=== PATIENT | male | born 1940 | race Caucasian/White ===

== ENCOUNTER 2016-08-13 21:39 | Inpatient (IN) ==
[2016-08-13] MEDS ORDERED: Ipratropium/Albuterol Neb 3 ML IH ONE (21:57)
[2016-08-13 22:09] LABS: ABG Base Excess -3.8 mEq/L (-2.0 to 3.0); ABG HCO3 22.2 mEQ/L (21-27); ABG Oxygen Saturation 89 % (95-98); ABG PCO2 43 mmHg (35-45); ABG PH 7.32 pH Units (7.32-7.45); ABG PO2 62 mmHg (85-104); ABG TCO2 23.5 mEq/L (20-26); Blood Gas FiO2 40 %
[2016-08-13] MEDS: Nitroglycerin 25 MG/250 ML INFUS..BTL IVC SCH (22:09)
--- NOTE | 2016-08-13 22:10 | Emergency Department Note ---
Disposition Clinical Impression: Acute respiratory failure Qualifiers: Respiratory failure complication: hypoxia Qualified Code(s): J96.01 - Acute respiratory failure with hypoxia Pneumonia Qualifiers: Pneumonia type: due to unspecified organism Laterality: bilateral Lung location : unspecified part of lung Qualified Code(s): J18.9 - Pneumonia, unspecified organism Congestive heart failure (CHF) Qualifiers: Congestive heart failure type: combined Congestive heart failure chronicity: acute on chronic Qualified Code(s): I50.43 - Acute on chronic combined systolic (congestive) and diastolic (congestive) heart failure Disposition: Admitted As Inpatient Condition: Fair [facility]: [facility]Primary Care Provider[facility] - Forms: ED Satisfaction Letter SOB HPI - General Chief Complaint: ED Shortness of Breath/Dyspnea Stated Complaint: YANE Time Seen by Provider: 08/13/16 21:44 Source: EMS Mode of arrival: EMS Limitations: altered mental status Nursing Notes Reviewed: Yes Vital Signs Reviewed: Yes - History of Present Illness She arrives in the [facility] for respiratory distress. He arrives with a nonrebreather patient will arouse to verbal command he appears in acute respiratory distress. He is unable to give us much of a history on exam the note states he does have a history of congestive heart failure and chronic kidney disease. Pt Subjective Complaint: shortness of breath Severity: severe Consistency/Duration: constant Worsens with: nothing Known history of: congestive heart failure Associated symptoms: Reports: other (Able to obtain) Treatment prior to arrival: oxygen, bronchodilator - Related Data Allergies Allergy/AdvReac Type Severity Reaction Status Date / Time No Known Allergies Allergy Verified 08/13/16 23:14 Limitations: ROS unobtainable due to patients medical condition Past Medical History - Past Medical History Source: old records reviewed, nursing notes reviewed Medical history: Reports: coronary artery disease, hyperlipidemia, hypertension Psychiatric history: Reports: no psych history - Social History Smoking Status: Unknown if ever smoked Alcohol use: Reports: none Drug use: Reports: none Physical Exam - General Limitations: altered mental status General appearance: in distress - Head Head exam: atraumatic, normocephalic, normal inspection - Eye Eye exam: Present: PERRL - ENT ENT exam: mucous membranes dry - Neck Neck exam: Present: normal inspection, full ROM, trachea midline - Respiratory Respiratory exam: Present: respiratory distress, wheezes (scattered with coarse rhonchi), other - Cardiovascular Cardiovascular exam: Present: tachycardia, normal heart sounds - Abdominal Exam Abdominal exam: Present: soft, Non-Tender. Absent: tenderness, distention, guarding, rebound, rigidity - Neurological Exam Neurological exam: Present: alert (obeys commands) - Skin Skin exam: Present: other Course - Reevaluation(s) Reevaluation #1: Patient much more alert and responsive he states that he is planning on guarding dialysis he has a left fistula. He states his breathing is better he is communicating and alert. Time: 23:03 Reevaluation #2: I spoke with the patient's she states he does want intubated if it was for short-term if his respiratory condition worsens. [facility] was at the [facility] since Thursday for [facility]. He was discharged from [facility] on Thursday for hypertensive urgency was on a nitroglycerin drip and also was diuresed for congestive heart failure. Time: 23:48 Vital Signs Temperature 0 F L 08/13/16 21:44 Pulse Rate 77 08/13/16 21:44 Respiratory Rate 32 08/13/16 21:44 Blood Pressure 191/91 08/13/16 21:44 O2 Sat by Pulse Oximetry 91 L 08/13/16 21:44 Temperature 0 F L 08/13/16 21:44 Pulse Rate 80 08/13/16 23:35 Respiratory Rate 20 08/13/16 23:35 Blood Pressure 134/93 08/13/16 23:35 O2 Sat by Pulse Oximetry 91 L 08/13/16 23:35 Oxygen Delivery Oxygen Delivery Bipap Shortness of Breath/Dyspnea - Differential Diagnosis Likely: acute exacerbation of chronic obstructive airways disease, congestive heart failure, pneumonia, asthma with exacerbation, arrhythmia - Medical Records Medical records reviewed: Yes I reviewed the patient's medical records. - Lab Data Lab results reviewed: Yes I reviewed the patient's lab results. Result diagrams: 08/13/16 22:17 08/13/16 22:17 Lab Results 08/13/16 08/13/16 08/13/16 Range/Units 21:52 22:01 22:17 WBC 7.3 (4.3-11.1) K/mcL RBC 3.56 L (4.19-5.50) M/mcL Hgb 11.0 L (12.9-16.9) g/dL Hct 33.7 L (37.5-50.1) % MCV 94.7 (83.0-100.0) fL MCH 30.9 (28.0-33.3) pg MCHC 32.6 (31.6-35.5) g/dL RDW 14.8 H (11.5-14.5) % Plt Count 82 L (140-400) K/mcL MPV 10.9 (9.4-12.4) fL Immature Gran % 0.4 (0-4) % Seg Neutrophils % 77.7 % Lymphocytes % 11.3 % Monocytes % 8.6 % Eosinophils % 1.9 % Basophils % 0.1 % Neutrophils # 5.7 (1.6-8.9) K/mcL Lymphocytes # 0.8 (0.6-4.6) K/mcL Monocytes # 0.6 (0.0-1.3) K/mcL Eosinophils # 0.1 (0.0-0.6) K/mcL Basophils # 0.0 (0.0-0.2) K/mcL Immature Plt Fraction 2.8 (1.1-6.1) % PT (9.4-12.1) Seconds INR APTT (26.0-36.0) Seconds ABG pH 7.32 (7.32-7.45) pH Units ABG pCO2 43 (35-45) mmHg ABG pO2 62 L (85-104) mmHg ABG HCO3 22.2 (21-27) mEQ/L ABG Total CO2 23.5 (20-26) mEq/L ABG O2 Saturation 89 L (95-98) % ABG Base Excess -3.8 L (-2.0 to 3.0) mEq/L Blood Gas Modality BIPAP Inspired O2 40 % Sodium (136-145) mEq/L Potassium (3.5-4.5) mEq/L Chloride (98-109) mEq/L Carbon Dioxide (19-29) mEq/L BUN (8-26) mg/dL Creatinine (0.72-1.25) mg/dL Est GFR ( Amer) (> 60) Est GFR (Non-Af Amer) (> 60) BUN/Creatinine Ratio (6-26) Glucose (70-99) mg/dL POC Glucose 178 H (58-89) Calculated Osmolality (280-300) Lactic Acid (0.5-2.2) mmol/L Calcium (8.6-10.8) mg/dL Troponin I (0-0.03) ng/mL B-Natriuretic Peptide (0-100) pg/mL 08/13/16 08/13/16 08/13/16 Range/Units 22:17 22:17 22:17 WBC (4.3-11.1) K/mcL RBC (4.19-5.50) M/mcL Hgb (12.9-16.9) g/dL Hct (37.5-50.1) % MCV (83.0-100.0) fL MCH (28.0-33.3) pg MCHC (31.6-35.5) g/dL RDW (11.5-14.5) % Plt Count (140-400) K/mcL MPV (9.4-12.4) fL Immature Gran % (0-4) % Seg Neutrophils % % Lymphocytes % % Monocytes % % Eosinophils % % Basophils % % Neutrophils # (1.6-8.9) K/mcL Lymphocytes # (0.6-4.6) K/mcL Monocytes # (0.0-1.3) K/mcL Eosinophils # (0.0-0.6) K/mcL Basophils # (0.0-0.2) K/mcL Immature Plt Fraction (1.1-6.1) % PT (9.4-12.1) Seconds INR APTT (26.0-36.0) Seconds ABG pH (7.32-7.45) pH Units ABG pCO2 (35-45) mmHg ABG pO2 (85-104) mmHg ABG HCO3 (21-27) mEQ/L ABG Total CO2 (20-26) mEq/L ABG O2 Saturation (95-98) % ABG Base Excess (-2.0 to 3.0) mEq/L Blood Gas Modality Inspired O2 % Sodium 140 (136-145) mEq/L Potassium 5.6 H (3.5-4.5) mEq/L Chloride 110 H (98-109) mEq/L Carbon Dioxide 19 (19-29) mEq/L BUN 64 H (8-26) mg/dL Creatinine 3.28 H (0.72-1.25) mg/dL Est GFR ( Amer) 22 L (> 60) Est GFR (Non-Af Amer) 18 L (> 60) BUN/Creatinine Ratio 20 (6-26) Glucose 179 H (70-99) mg/dL POC Glucose (58-89) Calculated Osmolality 313 H (280-300) Lactic Acid 0.5 (0.5-2.2) mmol/L Calcium 9.4 (8.6-10.8) mg/dL Troponin I 0.10 H* (0-0.03) ng/mL B-Natriuretic Peptide (0-100) pg/mL 08/13/16 08/13/16 Range/Units 22:17 22:17 WBC (4.3-11.1) K/mcL RBC (4.19-5.50) M/mcL Hgb (12.9-16.9) g/dL Hct (37.5-50.1) % MCV (83.0-100.0) fL MCH (28.0-33.3) pg MCHC (31.6-35.5) g/dL RDW (11.5-14.5) % Plt Count (140-400) K/mcL MPV (9.4-12.4) fL Immature Gran % (0-4) % Seg Neutrophils % % Lymphocytes % % Monocytes % % Eosinophils % % Basophils % % Neutrophils # (1.6-8.9) K/mcL Lymphocytes # (0.6-4.6) K/mcL Monocytes # (0.0-1.3) K/mcL Eosinophils # (0.0-0.6) K/mcL Basophils # (0.0-0.2) K/mcL Immature Plt Fraction (1.1-6.1) % PT 12.8 H (9.4-12.1) Seconds INR 1.2 APTT 40.3 H (26.0-36.0) Seconds ABG pH (7.32-7.45) pH Units ABG pCO2 (35-45) mmHg ABG pO2 (85-104) mmHg ABG HCO3 (21-27) mEQ/L ABG Total CO2 (20-26) mEq/L ABG O2 Saturation (95-98) % ABG Base Excess (-2.0 to 3.0) mEq/L Blood Gas Modality Inspired O2 % Sodium (136-145) mEq/L Potassium (3.5-4.5) mEq/L Chloride (98-109) mEq/L Carbon Dioxide (19-29) mEq/L BUN (8-26) mg/dL Creatinine (0.72-1.25) mg/dL Est GFR ( Amer) (> 60) Est GFR (Non-Af Amer) (> 60) BUN/Creatinine Ratio (6-26) Glucose (70-99) mg/dL POC Glucose (58-89) Calculated Osmolality (280-300) Lactic Acid (0.5-2.2) mmol/L Calcium (8.6-10.8) mg/dL Troponin I (0-0.03) ng/mL B-Natriuretic Peptide 2032 H (0-100) pg/mL - Radiology Data Radiology results reviewed: Yes I reviewed the patient's radiology results. Critical Care Time Critical Care Time: Yes Total Critical Care Time: 40 Attestation: Critical care performed: Time is exclusive of separately billable procedures. Time includes: direct patient care, patient reassessment, coordination of patient care, interpretation of data (laboratory data, radiology data, and respiratory data), review of patient's medical records, medical consultation and documentation of patient care. Procedures included in critical care time: Procedures excluded from critical care time:
[2016-08-13 22:32] LABS: Basophils % 0.1 %; Eosinophils # 0.1 K/mcL (0.0-0.6); Eosinophils % 1.9 %; Hematocrit 33.7 % (37.5-50.1); INR 1.2; Immature Granulocytes % 0.4 % (0-4); Immature Platelets 2.8 % (1.1-6.1); Lymphocytes # 0.8 K/mcL (0.6-4.6); Lymphocytes % 11.3 %; Mean Corpuscular HGB Conc 32.6 g/dL (31.6-35.5); Mean Corpuscular Hemoglobin 30.9 pg (28.0-33.3); Mean Corpuscular Volume 94.7 fL (83.0-100.0); Mean Platelet Volume 10.9 fL (9.4-12.4); Monocytes # 0.6 K/mcL (0.0-1.3); Monocytes % 8.6 %; Neutrophils # 5.7 K/mcL (1.6-8.9); Platelet Count 82 K/mcL (140-400); Prothrombin Time 12.8 Seconds (9.4-12.1); Red Blood Count 3.56 M/mcL (4.19-5.50); Red Cell Distribution Width 14.8 % (11.5-14.5); Segmented Neutrophils % 77.7 %
[2016-08-13 22:34] LABS: Activated Partial Thrombo Time 40.3 Seconds (26.0-36.0)
[2016-08-13 22:37] LABS: Calcium 9.4 mg/dL (8.6-10.8); Potassium 5.6 mEq/L (3.5-4.5)
[2016-08-13] MEDS ORDERED: Levofloxacin 750 MG/150 ML 750 MG/150 ML BAG IVPB ONE (22:49)
[2016-08-13] MEDS ORDERED: Furosemide 40 MG/4 ML VIAL IVP ONE (23:00)
[2016-08-13] MEDS ORDERED: Aspirin 81 MG TAB.CHEW PO STA (23:04)
[2016-08-14] MEDS ORDERED: Ondansetron 4 MG/2 ML VIAL IVP PRN (01:53)
[2016-08-14] MEDS ORDERED: Lacri-Lube 3.5 GM TUBE BOTH EYES PRN (02:37)
[2016-08-14] MEDS ORDERED: *HR* Midazolam HCl 5 MG/5 ML VIAL IVP ONE ×3 (03:21→07:48)
[2016-08-14] MEDS ORDERED: *HR* Midazolam HCl 2 MG/2 ML VIAL IVP ONE (03:22)
[2016-08-14] MEDS: Lacri-Lube 3.5 GM TUBE BOTH EYES SCH ×5 (03:52→20:10)
[2016-08-14] MEDS: Furosemide 20 MG/2 ML VIAL IVP ONE ×2 (03:53→04:07)
[2016-08-14] MEDS ORDERED: Furosemide 240 MG in D5% in Water 96 ML IVC SCH (04:00)
[2016-08-14 04:05] LABS: ABG Base Excess -3.7 mEq/L (-2.0 to 3.0); ABG HCO3 22.2 mEQ/L (21-27); ABG Oxygen Saturation 98 % (95-98); ABG PCO2 43 mmHg (35-45); ABG PH 7.32 pH Units (7.32-7.45); ABG PO2 104 mmHg (85-104); ABG TCO2 23.5 mEq/L (20-26)
[2016-08-14 04:06] LABS: Blood Gas FiO2 60 %
[2016-08-14 04:08] LABS: Hematocrit 31.3 % (37.5-50.1); Hemoglobin 9.8 g/dL (12.9-16.9); Mean Corpuscular HGB Conc 31.3 g/dL (31.6-35.5); Mean Corpuscular Hemoglobin 30.3 pg (28.0-33.3); Mean Corpuscular Volume 96.9 fL (83.0-100.0); Mean Platelet Volume 11.3 fL (9.4-12.4); Platelet Count 87 K/mcL (140-400); Red Blood Count 3.23 M/mcL (4.19-5.50); Red Cell Distribution Width 14.6 % (11.5-14.5)
[2016-08-14 04:23] LABS: Albumin 2.4 g/dL (3.5-5.0); Albumin/Globulin Ratio 0.7 (1.1-2.2); Bilirubin,Total 0.6 mg/dL (0.2-1.2); Calcium 8.6 mg/dL (8.6-10.8); Globulin 3.5 g/dL (2.4-3.5); Magnesium 1.7 mg/dL (1.6-2.6); Potassium 5.1 mEq/L (3.5-4.5); Total Protein 5.9 g/dL (6.0-8.3)
[2016-08-14] MEDS: Nitroglycerin 25 MG/250 ML INFUS..BTL IVC SCH ×2 (05:49→13:00)
[2016-08-14] MEDS ORDERED: Naloxone 0.4 MG/ML INJ IVP PRN (06:30)
--- NOTE | 2016-08-14 06:37 | Internal Med History&Physical ---
Date of Encounter: 08/14/16 Time of Encounter: 02:00 Assessment and Plan (1) Acute respiratory failure Current visit: Yes Status: Acute Likely due to pulmonary edema / CHF exacerbation. Pt was not able to tolerate BiPAP. Pt is intubated and is on mechanical ventilation and sedation. Will consult pulmonary in the morning, to take over the care / vent management. Qualifiers: Respiratory failure complication: hypoxia Qualified Code(s): J96.01 - Acute respiratory failure with hypoxia (2) Acute exacerbation of CHF (congestive heart failure) Current visit: Yes Status: Acute Pt has significant volume overload, possibly contributed by CKD as well. Pt was started on nitroglycerine infusion in the ER, for Hypertensive urgency and pulmonary edema. Now he is started on lasix infusion. Will diandra echocardiogram to evaluate LVEF. Qualifiers: Congestive heart failure type: unspecified congestive heart failure type Qualified Code(s): I50.9 - Heart failure, unspecified (3) Chronic kidney disease Current visit: Yes Status: Chronic We do not have his baseline renal function. Possible CKD. will need records from [facility]. Nephrology consultation - discussed with Dr Jarvis. Qualifiers: Chronic kidney disease stage: stage 4 (severe) Qualified Code(s): N18.4 - Chronic kidney disease, stage 4 (severe) (4) Hypertension Current visit: Yes Status: Chronic Continue home meds, as tolerated. Qualifiers: Hypertension type: essential hypertension Qualified Code(s): I10 - Essential (primary) hypertension (5) Pneumonia Current visit: Yes Status: Suspected There was suspicion for pneumonia, based on initial CXR. Was given levofloxacin in the ER. Subsequent CXR does not report pneumonia. Will consult pulmonary physician for further advice. Qualifiers: Pneumonia type: due to unspecified organism Laterality: bilateral Lung location: unspecified part of lung Qualified Code(s): J18.9 - Pneumonia, unspecified organism (6) Hypertensive urgency Current visit: Yes Status: Acute Pt is treated with nitroglycerine infusion. BP improving (7) DVT prophylaxis Current visit: Yes Status: Acute With heparin subcutaneously Internal Medicine - H&P: HPI Chief complaint: Shortness of breath Admitted From: Hospital to Hospital Transfer Plans for Post Hospital Care: Transfer Inp Rehab Fac History of present illness: Mr. Castro is a 76 year old male with PMH significant for coronary artery disease, hyperlipidemia, hypertension, (?CKD). He apparently was admitted recently to [facility] for hypertensive urgency / Stroke and was in rehab at [facility]. Yesterday he apparently had shortness of breath and was unresponsive. He was reportedly in respiratory distress, on arrival to the ER. He was also hypertensive. He was treated with IV lasix, levofloxacin, nitroglycerine and BiPAP. He was admitted to the Hospitalist service. After transferring to the ICU , pt was nauseated and had significant cough, with pink frothy sputum. He did not tolerate the BiPAP well. On my evaluation, pt was on oxygen, through nasal cannula; was confused and was in respiratory distress. Pt dinied chest pain, abdominal pain. He had nausea. No fever / chills reported. TIme spent in stabilizing and organizing the care is about 50 minutes Past Med Surg Social Fam HX - Past Medical History Medical history: coronary artery disease, hyperlipidemia, hypertension Psychiatric history: no psych history - Social History Smoking Status: Unknown if ever smoked Alcohol use: none Drug use: none Internal Medicine - H&P: Meds Atorvastatin [Lipitor] 40 mg PO HS 08/14/16 [History] Calcitriol [Rocaltrol] 0.5 mcg PO DAILY 08/14/16 [History] Carvedilol [Coreg] 50 mg PO BID 08/14/16 [History] Cholecalciferol (D-3) [Vitamin D] 1,000 unit PO DAILY 08/14/16 [History] CloNIDine HCl [Clonidine HCl] 0.2 mg PO TID 08/14/16 [History] Cyanocobalamin (Vitamin B-12) [Vitamin B-12] 200 mcg PO DAILY 08/14/16 [History] Dextran 70/Hypromellose [Natural Balance Tears Eye Drop] 1 drop OP QID PRN 08/14 [History] Duloxetine HCl [Cymbalta] 60 mg PO DAILY 08/14/16 [History] Ferrous Gluconate 324 mg PO DAILY 08/14/16 [History] Finasteride [Proscar] 5 mg PO DAILY 08/14/16 [History] GuaiFENesin/Dextromethorphan [Kro Tussin Dm Max Liquid] 5 ml PO Q4H PRN [History] Hydralazine HCl 100 mg PO TID 08/14/16 [History] Hydrophilic Cream [Basle] 1 appl TP DAILY PRN 08/14/16 [History] Insulin ASPART [NovoLOG] 7 unit SQ TID 08/14/16 [History] Insulin Glargine [Lantus] 10 unit SQ BID 08/14/16 [History] Isosorbide MONOnitrate [Isosorbide Mononitrate ER] 120 mg PO BID 08/14/16 [ History] Lactobacillus Acidophilus [Acidophilus Lactobacillus] 2 each PO DAILY 08/14/16 [ History] Lidocaine 4% CRM (LMX) [Lmx 4] 1 appl TP Q8H PRN 08/14/16 [History] Lisinopril 30 mg PO BID 08/14/16 [History] Melatonin 6 mg PO HS PRN 08/14/16 [History] Minoxidil 5 mg PO DAILY 08/14/16 [History] NIFEdipine [Afeditab Cr] 60 mg PO BID 08/14/16 [History] Nitroglycerin [Nitrostat] 0.4 mg SL Q5M PRN 08/14/16 [History] Pantoprazole Sodium [Protonix] 40 mg PO DAILY 08/14/16 [History] Phenytoin ER [Dilantin ER] 400 mg PO BID 08/14/16 [History] Tamsulosin [Flomax] 0.8 mg PO DAILY 08/14/16 [History] Tramadol HCl [Ultram] 25 mg PO QID PRN 08/14/16 [History] Zolpidem [Ambien] 10 mg PO HS PRN 08/14/16 [History] Allergies No Known Allergies Allergy (Verified 08/13/16 23:14) All Systems PM: A 10-system review of systems was performed and is negative for pertinent findings except as documented above in the HPI. - Constitutional Vitals: Temp Pulse Resp BP Pulse Ox 98.4 F 61 16 140/67 98 08/14/16 05:08 08/14/16 06:00 08/14/16 06:07 08/14/16 06:07 08/14/16 06:07 Exam: General: Pt in significant respiratory distress at my initial evaluation HEENT: No conjunctival palor or scleral incterus Neck: No obvious neck swellings Lungs: Bilateral crackles upto the midzones bilaterally Cardiac: Regular rate and rhythm. No significant murmurs Abdomen: Non tender. Bowel sounds present Neurological: Alert and oriented x 3. Psychiatric: Not aggressive or agitated. No delusions or hallucinations Muskuloskeletal: B/L leg edema noted. Skin: No generalized rash Internal Med - H&P Results - Labs CBC & Chem 7: 08/14/16 03:47 08/14/16 03:47 Labs: Short CBC 08/14/16 Range/Units 03:47 WBC 8.4 (4.3-11.1) K/mcL Hgb 9.8 L (12.9-16.9) g/dL Hct 31.3 L (37.5-50.1) % Plt Count 87 L (140-400) K/mcL BMP 08/14/16 03:47 Sodium 142 Potassium 5.1 H Chloride 112 H Carbon Dioxide 19 BUN 61 H Creatinine 3.19 H Glucose 160 H Calcium 8.6 Liver Function 08/14/16 Range/Units 03:47 Total Bilirubin 0.6 (0.2-1.2) mg/dL AST 21 (5-34) Units/L ALT 17 (0-55) Units/L Alkaline Phosphatase 121 (38-126) Units/L Albumin 2.4 L (3.5-5.0) g/dL - ABG Interpretation ABG results: 08/14/16 03:54 ABG pH 7.32 ABG pCO2 43 ABG pO2 104 ABG HCO3 22.2 ABG Total CO2 23.5 ABG O2 Saturation 98 ABG Base Excess -3.7 L - Impressions ITS Impressions Chest X-Ray 08/14/16 02:32 IMPRESSION: 1. New endotracheal tube in satisfactory position. 2. New gastric tube loops in the gastric fundus with the tip directed back towards the gastroesophageal junction and the sideport also in the fundus. Recommend repositioning. 3. Unchanged right upper lobe, bilateral perihilar, and left basilar airspace opacities, potentially atelectasis or edema. Underlying pulmonary vascular congestion. 4. Left pleural effusion. D/ / Noel Porter MD / Noel Porter MD Interpreting Provider: Noel Porter MD Impressions Chest X-Ray 08/13/16 21:49 IMPRESSION: 1. Patchy bilateral opacities concerning for pneumonia. D/ / Keyur Soler MD / Keyur Soler MD Interpreting Provider: Keyur Soler MD Chest X-Ray 08/14/16 02:32
--- NOTE | 2016-08-14 07:18 | Pulmonology Consult Note ---
<Gaby Ward - Last Filed: 08/14/16 12:07> Date of Encounter: 08/14/16 Time of Encounter: 06:40 Assessment and Plan (1) Acute respiratory failure Current Visit: Yes Status: Acute [facility] on nonrebreather in respiratory distress. Was placed on BiPAP and subsequently intubated once in ICU Currently on FiO2 60% with O2 sat 99% CXR demonstrated right upper lobe, bilateral perihilar and left basilar airspace opacities, potentially atelectasis or edema, underlying pulmonary vascular congestion, left pleural effusion Lasix drip discontinued and placed on twice a day regimen per nephrology Plan for central line placement this morning Fluid balance of -1374 since admission Barrett in place to monitor I/Os Qualifiers: Respiratory failure complication: hypoxia Qualified Code(s): J96.01 - Acute respiratory failure with hypoxia (2) Chronic kidney disease Current Visit: Yes Status: Chronic Pt with history of CKD, [facility], however there has reportedly been discussion about placement of fistula. Nephrology has been consulted Creatinine today: 3.19 (3.28 yesterday) IV lasix drip stopped and started on twice a day regimen Will continue to monitor kidney function Qualifiers: Chronic kidney disease stage: unspecified stage Qualified Code(s): N18.9 - Chronic kidney disease, unspecified (3) Congestive heart failure (CHF) Current Visit: Yes Status: Acute Pt with reported history of CHF, uncertain if systolic or diastolic Echocardiogram pending Continue lasix bid Qualifiers: Congestive heart failure type: unspecified congestive heart failure type Congestive heart failure chronicity: unspecified congestive heart failure chronicity Qualified Code(s): I50.9 - Heart failure, unspecified (4) Hypertension Current Visit: Yes Status: Chronic Nitro drip ordered, however pts blood pressure has been controlled off of the drip Will continue to monitor and adjust medications as needed Qualifiers: Hypertension type: essential hypertension Qualified Code(s): I10 - Essential (primary) hypertension (5) DVT prophylaxis Current Visit: Yes Status: Acute Heparin 5,000 SQ Q8H History of Present Illness Consult date: 08/14/16 Requesting physician: Krzysztof Rider Reason for consult: other (Ventilator management) Chief complaint: Acute Respiratory Failure History of present illness: Pt is intubated and sedated on examination. History significant for CAD, BPH, CKD, diabetes mellitus and reported CHF. [facility] s/p CVA and was brought to [facility] in respiratory distress. He reportedly came with nonrebreather, was transferred to the ICU where he was subsequently intubated. Placement of tube was confirmed with CXR. CXR also demonstrated right upper lobe, bilateral perihilar, and left basilar airspace opacities, potentially atelectasis or edema with underlying pulmonary vascular congestion and left pleural effusion. Lasix drip was started for diuresis. Nephrology consulted. Past Med Surg Social Fam HX - Past Medical History Medical history: coronary artery disease, hyperlipidemia, hypertension Psychiatric history: no psych history - Social History Smoking Status: Unknown if ever smoked Alcohol use: none Drug use: none Medications and Allergies Atorvastatin [Lipitor] 40 mg PO HS 08/14/16 [History] Calcitriol [Rocaltrol] 0.5 mcg PO DAILY 08/14/16 [History] Carvedilol [Coreg] 50 mg PO BID 08/14/16 [History] Cholecalciferol (D-3) [Vitamin D] 1,000 unit PO DAILY 08/14/16 [History] CloNIDine HCl [Clonidine HCl] 0.2 mg PO TID 08/14/16 [History] Cyanocobalamin (Vitamin B-12) [Vitamin B-12] 200 mcg PO DAILY 08/14/16 [History] Dextran 70/Hypromellose [Natural Balance Tears Eye Drop] 1 drop OP QID PRN 08/14 [History] Duloxetine HCl [Cymbalta] 60 mg PO DAILY 08/14/16 [History] Ferrous Gluconate 324 mg PO DAILY 08/14/16 [History] Finasteride [Proscar] 5 mg PO DAILY 08/14/16 [History] GuaiFENesin/Dextromethorphan [Kro Tussin Dm Max Liquid] 5 ml PO Q4H PRN [History] Hydralazine HCl 100 mg PO TID 08/14/16 [History] Hydrophilic Cream [Basle] 1 appl TP DAILY PRN 08/14/16 [History] Insulin ASPART [NovoLOG] 7 unit SQ TID 08/14/16 [History] Insulin Glargine [Lantus] 10 unit SQ BID 08/14/16 [History] Isosorbide MONOnitrate [Isosorbide Mononitrate ER] 120 mg PO BID 08/14/16 [ History] Lactobacillus Acidophilus [Acidophilus Lactobacillus] 2 each PO DAILY 08/14/16 [ History] Lidocaine 4% CRM (LMX) [Lmx 4] 1 appl TP Q8H PRN 08/14/16 [History] Lisinopril 30 mg PO BID 08/14/16 [History] Melatonin 6 mg PO HS PRN 08/14/16 [History] Minoxidil 5 mg PO DAILY 08/14/16 [History] NIFEdipine [Afeditab Cr] 60 mg PO BID 08/14/16 [History] Nitroglycerin [Nitrostat] 0.4 mg SL Q5M PRN 08/14/16 [History] Pantoprazole Sodium [Protonix] 40 mg PO DAILY 08/14/16 [History] Phenytoin ER [Dilantin ER] 400 mg PO BID 08/14/16 [History] Tamsulosin [Flomax] 0.8 mg PO DAILY 08/14/16 [History] Tramadol HCl [Ultram] 25 mg PO QID PRN 08/14/16 [History] Zolpidem [Ambien] 10 mg PO HS PRN 08/14/16 [History] Allergies No Known Allergies Allergy (Verified 08/13/16 23:14) ROS unobtainable: other (Unattainable as pt is intubated and sedated.) All Systems: A 10-system review of systems was performed and is negative for pertinent findings except as documented above in the HPI. Physical Examination Vital Signs: Vital Signs, Last 4 Hours Temp Pulse Resp BP Pulse Ox 08/14/16 06:07 16 140/67 98 08/14/16 06:00 61 16 140/67 98 08/14/16 05:08 98.4 F 08/14/16 05:00 63 16 123/64 98 08/14/16 04:25 16 152/65 97 08/14/16 04:00 65 18 152/65 98 08/14/16 03:18 75 General appearance: other (ET tube in place and pt sedated) Eyes: nonicteric ENT: oropharynx moist Neck: supple Auscultation: bilateral: diminished breath sounds, rhonchi (Left worse than Right) Cardiovascular: regular rate and rhythm Gastrointestinal: normoactive bowel sounds, soft, non-distended Extremities: no cyanosis, edema (BLE, BUE edema) Musculoskeletal: no deformities other (History of CVA, unable to complete neuro exam due to pt being intubated and sedated) Ventilator Settings Ventilator Settings: Ventilator Settings, Last 8 Hours Ventilator Mode A/C Ventilator Mode A/C Ventilator Mode A/C Ventilator Mode A/C Ventilator Mode A/C Ventilator Mode A/C Ventilator Mode A/C Ventilator Mode A/C Ventilator Tidal Volume 550 Setting Ventilator Tidal Volume 550 Setting Ventilator Tidal Volume 550 Setting Ventilator Tidal Volume 550 Setting Ventilator Tidal Volume 550 Setting Ventilator Tidal Volume 550 Setting Ventilator Tidal Volume 550 Setting Ventilator Tidal Volume 550 Setting Ventilator Respiratory Rate 16 Setting Ventilator Respiratory Rate 16 Setting Ventilator Respiratory Rate 16 Setting Ventilator Respiratory Rate 16 Setting Ventilator Respiratory Rate 16 Setting Ventilator Respiratory Rate 16 Setting Ventilator Respiratory Rate 16 Setting Ventilator Respiratory Rate 16 Setting Actual Respiratory Rate 16 Actual Respiratory Rate 16 Actual Respiratory Rate 16 Actual Respiratory Rate 16 Actual Respiratory Rate 18 Actual Respiratory Rate 29 Actual Respiratory Rate 23 Positive End Expiratory 5 Pressure Positive End Expiratory 5 Pressure Positive End Expiratory 5 Pressure Positive End Expiratory 5 Pressure Positive End Expiratory 5 Pressure Positive End Expiratory 5 Pressure Positive End Expiratory 5 Pressure Positive End Expiratory 5 Pressure Peak Inspiratory Airway 19 Pressure Peak Inspiratory Airway 19 Pressure Peak Inspiratory Airway 19 Pressure Peak Inspiratory Airway 20 Pressure Peak Inspiratory Airway 20 Pressure Peak Inspiratory Airway 32 Pressure Peak Inspiratory Airway 21 Pressure Results - Laboratory Findings CBC and BMP: 08/14/16 03:47 08/14/16 10:22 ABG ABG pH 7.32 pH Units (7.32-7.45) 08/14/16 03:54 ABG pCO2 43 mmHg (35-45) 08/14/16 03:54 ABG pO2 104 mmHg (85-104) 08/14/16 03:54 ABG O2 Saturation 98 % (95-98) 08/14/16 03:54 PT/INR, D-dimer PT 12.8 Seconds (9.4-12.1) H 08/13/16 22:17 Abnormal lab findings: Abnormal lab results RBC 3.23 M/mcL (4.19-5.50) L 08/14/16 03:47 Hgb 9.8 g/dL (12.9-16.9) L 08/14/16 03:47 Hct 31.3 % (37.5-50.1) L 08/14/16 03:47 MCHC 31.3 g/dL (31.6-35.5) L 08/14/16 03:47 RDW 14.6 % (11.5-14.5) H 08/14/16 03:47 Plt Count 87 K/mcL (140-400) L 08/14/16 03:47 PT 12.8 Seconds (9.4-12.1) H 08/13/16 22:17 APTT 40.3 Seconds (26.0-36.0) H 08/13/16 22:17 ABG Base Excess -3.7 mEq/L (-2.0 to 3.0) L 08/14/16 03:54 Potassium 5.1 mEq/L (3.5-4.5) H 08/14/16 03:47 Chloride 112 mEq/L (98-109) H 08/14/16 03:47 BUN 61 mg/dL (8-26) H 08/14/16 03:47 Creatinine 3.19 mg/dL (0.72-1.25) H 08/14/16 03:47 Est GFR ( Amer) 23 (> 60) L 08/14/16 03:47 Est GFR (Non-Af Amer) 19 (> 60) L 08/14/16 03:47 Glucose 160 mg/dL (70-99) H 08/14/16 03:47 POC Glucose 178 (58-89) H 08/13/16 21:52 Calculated Osmolality 315 (280-300) H 08/14/16 03:47 Troponin I 0.10 ng/mL (0-0.03) H* 08/13/16 22:17 B-Natriuretic Peptide 2032 pg/mL (0-100) H 08/13/16 22:17 Serum Total Protein 5.9 g/dL (6.0-8.3) L 08/14/16 03:47 Albumin 2.4 g/dL (3.5-5.0) L 08/14/16 03:47 Albumin/Globulin Ratio 0.7 (1.1-2.2) L 08/14/16 03:47 - Clinical Findings Intake & Output: Intake & Output 08/13/16 08/13/16 08/14/16 15:59 23:59 07:59 Intake Total 431 / 431 Output Total 1555 / 1555 Balance -1124 / -1124 Weight 87.2 kg Consult Discharge Plan - Plan [facility]errals: [facility]Primary Care Provider[facility] - <Hema Kim M - Last Filed: 08/14/16 13:16> Date of Encounter: 08/14/16 All Systems: A 10-system review of systems was performed and is negative for pertinent findings except as documented above in the HPI. Physical Examination Vital Signs: Vital Signs, Last 4 Hours Temp Pulse Resp BP Pulse Ox 08/14/16 11:26 97.7 F 08/14/16 11:13 64 27 143/71 99 08/14/16 10:02 62 22 144/65 99 08/14/16 09:19 61 25 130/60 99 Ventilator Settings Ventilator Settings: Ventilator Settings, Last 8 Hours Ventilator Mode A/C Ventilator Mode A/C Ventilator Mode A/C Ventilator Mode A/C Ventilator Mode A/C Ventilator Mode A/C Ventilator Tidal Volume 400 Setting Ventilator Tidal Volume 400 Setting Ventilator Tidal Volume 400 Setting Ventilator Tidal Volume 400 Setting Ventilator Tidal Volume 550 Setting Ventilator Tidal Volume 550 Setting Ventilator Respiratory Rate 16 Setting Ventilator Respiratory Rate 16 Setting Ventilator Respiratory Rate 16 Setting Ventilator Respiratory Rate 16 Setting Ventilator Respiratory Rate 16 Setting Ventilator Respiratory Rate 16 Setting Actual Respiratory Rate 28 Actual Respiratory Rate 23 Actual Respiratory Rate 25 Actual Respiratory Rate 23 Actual Respiratory Rate 16 Actual Respiratory Rate 16 Positive End Expiratory 5 Pressure Positive End Expiratory 5 Pressure Positive End Expiratory 5 Pressure Positive End Expiratory 5 Pressure Positive End Expiratory 5 Pressure Positive End Expiratory 5 Pressure Peak Inspiratory Airway 21 Pressure Peak Inspiratory Airway 18 Pressure Peak Inspiratory Airway 18 Pressure Peak Inspiratory Airway 18 Pressure Peak Inspiratory Airway 19 Pressure Peak Inspiratory Airway 19 Pressure Results - Laboratory Findings CBC and BMP: 08/14/16 03:47 08/14/16 10:22 ABG ABG pH 7.32 pH Units (7.32-7.45) 08/14/16 03:54 ABG pCO2 43 mmHg (35-45) 08/14/16 03:54 ABG pO2 104 mmHg (85-104) 08/14/16 03:54 ABG O2 Saturation 98 % (95-98) 08/14/16 03:54 PT/INR, D-dimer PT 12.8 Seconds (9.4-12.1) H 08/13/16 22:17 Abnormal lab findings: Abnormal lab results RBC 3.23 M/mcL (4.19-5.50) L 08/14/16 03:47 Hgb 9.8 g/dL (12.9-16.9) L 08/14/16 03:47 Hct 31.3 % (37.5-50.1) L 08/14/16 03:47 MCHC 31.3 g/dL (31.6-35.5) L 08/14/16 03:47 RDW 14.6 % (11.5-14.5) H 08/14/16 03:47 Plt Count 87 K/mcL (140-400) L 08/14/16 03:47 PT 12.8 Seconds (9.4-12.1) H 08/13/16 22:17 APTT 40.3 Seconds (26.0-36.0) H 08/13/16 22:17 ABG Base Excess -3.7 mEq/L (-2.0 to 3.0) L 08/14/16 03:54 Potassium 5.0 mEq/L (3.5-4.5) H 08/14/16 10:22 Chloride 110 mEq/L (98-109) H 08/14/16 10:22 BUN 65 mg/dL (8-26) H 08/14/16 10:22 Creatinine 3.37 mg/dL (0.72-1.25) H 08/14/16 10:22 Est GFR ( Amer) 22 (> 60) L 08/14/16 10:22 Est GFR (Non-Af Amer) 18 (> 60) L 08/14/16 10:22 Glucose 140 mg/dL (70-99) H 08/14/16 10:22 POC Glucose 178 (58-89) H 08/13/16 21:52 Calculated Osmolality 313 (280-300) H 08/14/16 10:22 Troponin I 0.10 ng/mL (0-0.03) H* 08/13/16 22:17 B-Natriuretic Peptide 2032 pg/mL (0-100) H 08/13/16 22:17 Serum Total Protein 5.9 g/dL (6.0-8.3) L 08/14/16 03:47 Albumin 2.4 g/dL (3.5-5.0) L 08/14/16 03:47 Albumin/Globulin Ratio 0.7 (1.1-2.2) L 08/14/16 03:47 - Clinical Findings Intake & Output: Intake & Output 08/13/16 08/14/16 08/14/16 23:59 07:59 15:59 Intake Total 431 / 431 100 / 100 Output Total 1959 / 1959 550 / 550 Balance -1529 / -1529 -450 / -450 Weight 87.2 kg
[2016-08-14] MEDS: *HR* Heparin 5,000 UNIT/ML VIAL SQ SCH ×3 (09:14→23:44)
[2016-08-14] MEDS: Chlorhexidine Rinse 15 ML MOUTHWASH MM SCH ×2 (09:14→20:32)
[2016-08-14] MEDS: Pantoprazole 40 MG VIAL IVP SCH (09:14)
--- NOTE | 2016-08-14 10:16 | Nephrology Consult Note ---
Date of Encounter: 08/14/16 Time of Encounter: 10:00 Assessment and Plan (1) Acute respiratory failure with hypoxia Current Visit: Yes Status: Acute In the setting of acute congestive heart failure exacerbation and pulmonary edema. IV Lasix drip has been discontinued and twice a day dosing initiated. Ventilator management per pulmonary team. (2) Acute exacerbation of CHF (congestive heart failure) Current Visit: Yes Status: Acute Patient with supposedly a history of congestive heart failure, but unknown if systolic or diastolic dysfunction. Transthoracic echocardiogram pending. Continue IV Lasix twice a day dosing with attempt to keep the patient negative 1 -2 L. Qualifiers: Congestive heart failure type: unspecified congestive heart failure type Qualified Code(s): I50.9 - Heart failure, unspecified (3) Chronic kidney disease Current Visit: Yes Status: Chronic [facility] documentation states CKD stage III. Per nursing staff, patient is presently being worked up for left arm AV fistula placement which would suggest patient's chronic kidney disease is at least stage IV/V. We will attempt to discuss this information with the patient's family or with the patient upon extubation. Continue a renal protective strategy and dose any medications accordingly. No acute need for renal replacement therapy at this time. Continue IV Lasix for volume overload. Patient is diuresing very well with great urine output. Qualifiers: Chronic kidney disease stage: unspecified stage Qualified Code(s): N18.9 - Chronic kidney disease, unspecified History of Present Illness - Reason for Consult Consult date: 08/14/16 Chronic Kidney Disease Requesting physician: Krzysztof Rider - Chief Complaint CKD with volume overload - History of Present Illness Mr. Castro is a 76-year-old male transferred from the [place] with a past medical history of insulin-dependent diabetes mellitus coronary artery disease, BPH, chronic kidney disease stage unknown, and questionable congestive heart failure. He is intubated and sedated in the intensive care unit so all information has been obtained from medical records. Per records, patient was recently admitted at [facility] for hypertensive urgency as well as CVA. He has been residing at the [place] for rehabilitation following discharge and developed sudden onset shortness of breath yesterday. He was transferred to [place] emergency department and subsequently intubated due to acute respiratory failure with hypoxia. Patient was also found to be significantly hypertensive on arrival to the ED and was treated with nitroglycerin and IV Lasix. Chest x- ray revealed pulmonary edema along with a left sided pleural effusion and patient remains on IV Lasix infusion. Nephrology has been consulted for chronic kidney disease in the setting of volume overload. [facility], patient appears to have at least CKD stage III possibly greater as the patient is supposedly preparing for a left AV fistula placement. Past Med Surg Social Fam HX - Past Medical History Medical history: CHF, coronary artery disease, diabetes, hyperlipidemia, hypertension, renal disease Psychiatric history: no psych history - Social History Smoking Status: Unknown if ever smoked Alcohol use: none Drug use: none Medications and Allergies Atorvastatin [Lipitor] 40 mg PO HS 08/14/16 [History] Calcitriol [Rocaltrol] 0.5 mcg PO DAILY 08/14/16 [History] Carvedilol [Coreg] 50 mg PO BID 08/14/16 [History] Cholecalciferol (D-3) [Vitamin D] 1,000 unit PO DAILY 08/14/16 [History] CloNIDine HCl [Clonidine HCl] 0.2 mg PO TID 08/14/16 [History] Cyanocobalamin (Vitamin B-12) [Vitamin B-12] 200 mcg PO DAILY 08/14/16 [History] Dextran 70/Hypromellose [Natural Balance Tears Eye Drop] 1 drop OP QID PRN 08/14 [History] Duloxetine HCl [Cymbalta] 60 mg PO DAILY 08/14/16 [History] Ferrous Gluconate 324 mg PO DAILY 08/14/16 [History] Finasteride [Proscar] 5 mg PO DAILY 08/14/16 [History] GuaiFENesin/Dextromethorphan [Kro Tussin Dm Max Liquid] 5 ml PO Q4H PRN [History] Hydralazine HCl 100 mg PO TID 08/14/16 [History] Hydrophilic Cream [Basle] 1 appl TP DAILY PRN 08/14/16 [History] Insulin ASPART [NovoLOG] 7 unit SQ TID 08/14/16 [History] Insulin Glargine [Lantus] 10 unit SQ BID 08/14/16 [History] Isosorbide MONOnitrate [Isosorbide Mononitrate ER] 120 mg PO BID 08/14/16 [ History] Lactobacillus Acidophilus [Acidophilus Lactobacillus] 2 each PO DAILY 08/14/16 [ History] Lidocaine 4% CRM (LMX) [Lmx 4] 1 appl TP Q8H PRN 08/14/16 [History] Lisinopril 30 mg PO BID 08/14/16 [History] Melatonin 6 mg PO HS PRN 08/14/16 [History] Minoxidil 5 mg PO DAILY 08/14/16 [History] NIFEdipine [Afeditab Cr] 60 mg PO BID 08/14/16 [History] Nitroglycerin [Nitrostat] 0.4 mg SL Q5M PRN 08/14/16 [History] Pantoprazole Sodium [Protonix] 40 mg PO DAILY 08/14/16 [History] Phenytoin ER [Dilantin ER] 400 mg PO BID 08/14/16 [History] Tamsulosin [Flomax] 0.8 mg PO DAILY 08/14/16 [History] Tramadol HCl [Ultram] 25 mg PO QID PRN 08/14/16 [History] Zolpidem [Ambien] 10 mg PO HS PRN 08/14/16 [History] Allergies No Known Allergies Allergy (Verified 08/13/16 23:14) Review of Systems ROS unobtainable: due to endotracheal tube, due to mental status Exam - Vital Signs Vital signs: Initial Vital Signs Temp Pulse Resp BP Pulse Ox 0 F L 77 32 191/91 91 L 08/13/16 21:44 08/13/16 21:44 08/13/16 21:44 08/13/16 21:44 08/13/16 21:44 Vital Signs - Last 8 Hours Temp Pulse Resp BP Pulse Ox 08/14/16 10:02 62 22 144/65 99 08/14/16 09:19 61 25 130/60 99 08/14/16 07:55 16 161/72 99 08/14/16 07:00 98.4 F 65 23 146/66 99 08/14/16 06:07 16 140/67 98 08/14/16 06:00 61 16 140/67 98 08/14/16 05:08 98.4 F 08/14/16 05:00 63 16 123/64 98 08/14/16 04:25 16 152/65 97 08/14/16 04:00 65 18 152/65 98 08/14/16 03:18 75 08/14/16 03:00 78 29 167/76 93 L 08/14/16 02:41 26 97 Intake and Output 08/13/16 08/14/16 08/14/16 23:59 07:59 15:59 Intake Total 431 / 431 100 / 100 Output Total 1959 / 1959 330 / 330 Balance -1529 / -1529 -230 / -230 Intake: IV Fluids 431 / 431 100 / 100 Lasix 240 MG In Dextrose 3 / 3 5% 96 ML @ 5 MG/HR 2.5 mls/hr IVC .Q24H ANTHONY Rx#: [id number] Versed 50 MG In 0.9 % 100 / 100 Sodium Chloride 90 ML @ 2 MG/HR 4 mls/hr IVC CONT ANTHONY Rx#:[id number] Nitroglycerin 25 mg In 178 / 178 250 ml @ 50 MCG/MIN 30 mls/hr IVC .Q8H20M AN[facility]ONY Rx #:[id number] Diprivan 1,000 mg In 100 100 / 100 ml @ 5 MCG/KG/MIN 2.616 mls/hr IVC .Q24H ANTHONY Rx#: [id number] Levaquin 750mg/150 mL 750 150 / 150 mg In 150 ml @ 100 mls/ hr IVPB ONCE ONE Rx#: [id number] Output: Urine 155 / 155 120 / 120 Catheter 1805 / 1805 210 / 210 Other: Weight 87.2 kg Blood Glucose* 155 Patient Weight 08/14/16 23:59 Weight 87.2 kg - General Appearance Exam: General: Patient is intubated and sedated HEENT: Normocephalic atraumatic, pupils are equal round and reactive to light and accommodation, nares is patent, mucous membranes moist, endotracheal tube in place, no JVD, trachea is midline Cardiovascular: Regular rate and rhythm without murmur Respiratory: Lungs are diminished bilaterally with trace rhonchi noted Abdomen: Soft, nontender, nondistended, positive bowel sounds in all 4 quadrants Extremities: Warm, dry, trace lower extremity edema Neuro: Unable to assess due to intubation/sedation Results - Lab Results 08/14/16 03:47 08/14/16 03:47 Most recent lab results ABG pH 7.32 pH Units (7.32-7.45) 08/14/16 03:54 ABG pCO2 43 mmHg (35-45) 08/14/16 03:54 ABG pO2 104 mmHg (85-104) 08/14/16 03:54 ABG HCO3 22.2 mEQ/L (21-27) 08/14/16 03:54 ABG O2 Saturation 98 % (95-98) 08/14/16 03:54 Calcium 8.6 mg/dL (8.6-10.8) 08/14/16 03:47 Magnesium 1.7 mg/dL (1.6-2.6) 08/14/16 03:47 Consult Discharge Plan - Plan [facility]errals: [facility] [Primary Care Provider] -
[2016-08-14 10:43] LABS: Calcium 9.1 mg/dL (8.6-10.8); Magnesium 1.7 mg/dL (1.6-2.6)
--- NOTE | 2016-08-14 12:20 | Event Note ---
Date of Encounter: 08/14/16 Time of Encounter: 12:18 Procedure: Central line placement in Left Internal Jugular with ultrasound guidance Indication for procedure: Need for adequate access Attending: Dr. Tamra Kim Resident: Dr. Myke Senior Patient was intubated and sedated at the time of procedure. Ultrasound was first used to identify the left internal jugular. Patient was prepped with Chlorhexidine scrub and draped in sterile fashion. Time out performed prior to procedure. Local anesthetic, 3.0ml of Lidocaine 1% administered. Placement of left internal jugular triple lumen central venous catheter was then performed using ultrasound guidance. There was good blood return, all ports were aspirated, flushed and capped. Catheter was sutured into place and sterile dressing was applied. Tip of catheter in good position as demonstrated by post- procedure x-ray. Pt tolerated procedure well and without complication.
[2016-08-14] MEDS: Furosemide 20 MG/2 ML VIAL IVP SCH ×2 (12:59→20:32)
--- NOTE | 2016-08-14 13:22 | Event Note ---
Date of Encounter: 08/14/16 Time of Encounter: 13:17 Patient examined, chart and all data reviewed as well as imaging studies. I reviewed and discussed management in detail with Dr. Ward and I agree with her plans assessment and findings on physical examination. The patient was transferred to the intensive care unit last evening due to acute respiratory failure with hypoxia. Based upon the evaluation performed today, respiratory failure is due to acute pulmonary edema presumably cardiogenic in nature. Based upon the patient's history, I also suspect that he has underlying chronic obstructive pulmonary disease among other listed comorbidities. The patient will be maintained on noninvasive ventilatory support pending improvement of respiratory status and acute pulmonary edema. Formal echocardiography is pending at this time however the focused ultrasound evaluation of the chest seemingly revealed relatively preserved systolic heart function, no obvious dilation of the right ventricle, mild enlargement of the right atrium and prominence of the IVC suggesting mild hypervolemia and/or elevation of right heart pressure. I agree with the permission of diuretic therapy. Presumably, the patient may have a cardio renal syndrome in addition to underlying kidney disease chronic ( and KEYLA). Julio
[2016-08-15 04:26] LABS: Basophils % 0.2 %; Hemoglobin 9.3 g/dL (12.9-16.9); Mean Corpuscular Volume 97.7 fL (83.0-100.0)
[2016-08-15 04:28] LABS: Eosinophils # 0.1 K/mcL (0.0-0.6); Eosinophils % 3.4 %; Hematocrit 30.2 % (37.5-50.1); Immature Granulocytes % 0.2 % (0-4); Immature Platelets 3.9 % (1.1-6.1); Lymphocytes # 0.8 K/mcL (0.6-4.6); Lymphocytes % 18.9 %; Mean Corpuscular HGB Conc 30.8 g/dL (31.6-35.5); Mean Corpuscular Hemoglobin 30.1 pg (28.0-33.3); Mean Platelet Volume 11.2 fL (9.4-12.4); Monocytes # 0.3 K/mcL (0.0-1.3); Monocytes % 8.1 %; Neutrophils # 2.8 K/mcL (1.6-8.9); Red Blood Count 3.09 M/mcL (4.19-5.50); Red Cell Distribution Width 14.8 % (11.5-14.5); Segmented Neutrophils % 69.2 %
[2016-08-15 04:29] LABS: Platelet Count 67 K/mcL (140-400)
[2016-08-15 04:35] LABS: Calcium 9.4 mg/dL (8.6-10.8); Potassium 4.4 mEq/L (3.5-4.5)
[2016-08-15 05:19] LABS: ABG Base Excess -3.7 mEq/L (-2.0 to 3.0); ABG HCO3 22.1 mEQ/L (21-27); ABG Oxygen Saturation 91 % (95-98); ABG PCO2 42 mmHg (35-45); ABG PH 7.33 pH Units (7.32-7.45); ABG PO2 65 mmHg (85-104); ABG TCO2 23.4 mEq/L (20-26); Blood Gas VT 400 cc
--- NOTE | 2016-08-15 06:37 | Pulmonology Progress Note ---
<Gaby Ward - Last Filed: 08/15/16 06:37> Date of Encounter: 08/15/16 Time of Encounter: 06:25 Assessment and Plan (1) Acute respiratory failure Current Visit: Yes Status: Acute [facility] on nonrebreather in respiratory distress Placed on BiPAP on arrival and subsequently intubated once in ICU Currently FiO2 30% with O2 sat 96% CXR demonstrated right upper lobe, bilateral perihilar and left basilar airspace opacities, potentially atelectasis or edema, underlying pulmonary vascular congestion, left pleural effusion Central line placed yesterday Lasix 20mg bid Fluid balance -4329 since admission Barrett in place to monitor I/Os Qualifiers: Respiratory failure complication: hypoxia Qualified Code(s): J96.01 - Acute respiratory failure with hypoxia (2) Chronic kidney disease Current Visit: Yes Status: Chronic Pt with histry of CKD, [facility], however due to reported discussion about placement of fistula, unsure of this accuracy Nephrology consulted Creatinine 3.43 today (3.28 yesterday) IV lasix 20mg bid Qualifiers: Chronic kidney disease stage: unspecified stage Qualified Code(s): N18.9 - Chronic kidney disease, unspecified (3) Congestive heart failure (CHF) Current Visit: Yes Status: Acute Reported history of CHF, uncertain if systolic or diastolic Echocardiogram pending Lasix 20mg bid Qualifiers: Congestive heart failure type: unspecified congestive heart failure type Congestive heart failure chronicity: unspecified congestive heart failure chronicity Qualified Code(s): I50.9 - Heart failure, unspecified (4) Hypertension Current Visit: Yes Status: Chronic Nitro drip ordered, however pts blood pressure has been controlled off the drip Will continue to monitor and adjust medications as needed Qualifiers: Hypertension type: essential hypertension Qualified Code(s): I10 - Essential (primary) hypertension (5) DVT prophylaxis Current Visit: Yes Status: Acute Heparin 5,000 SQ Q8H Subjective Principal diagnosis: Acute respiratory failure Interval history: Pt is intubated and sedated on exam this morning. Left IJ CVC was placed yesterday. He continues to diurese well on lasix 20mg bid. Objective PUL Vital signs: Last Vital Signs Temp 97.1 F L 08/15/16 04:00 Pulse 61 08/15/16 06:00 Resp 18 08/15/16 06:00 BP 171/74 08/15/16 06:00 Pulse Ox 98 08/15/16 06:00 General appearance: other (intubated and sedated) Eyes: nonicteric ENT: oropharynx moist Neck: supple Auscultation: bilateral: clear Cardiovascular: regular rate and rhythm Gastrointestinal: normoactive bowel sounds, soft, non-distended Extremities: no cyanosis, no edema, no clubbing Musculoskeletal: no deformities other (ET tube in place and sedated) Ventilator Settings Ventilator Settings: Ventilator Settings, Last 8 Hours Ventilator Mode A/C Ventilator Mode A/C Ventilator Mode A/C Ventilator Mode A/C Ventilator Mode A/C Ventilator Mode A/C Ventilator Mode A/C Ventilator Mode A/C Ventilator Mode A/C Ventilator Mode A/C Ventilator Mode A/C Ventilator Tidal Volume 400 Setting Ventilator Tidal Volume 400 Setting Ventilator Tidal Volume 400 Setting Ventilator Tidal Volume 400 Setting Ventilator Tidal Volume 400 Setting Ventilator Tidal Volume 400 Setting Ventilator Tidal Volume 400 Setting Ventilator Tidal Volume 400 Setting Ventilator Tidal Volume 400 Setting Ventilator Tidal Volume 400 Setting Ventilator Tidal Volume 400 Setting Ventilator Respiratory Rate 16 Setting Ventilator Respiratory Rate 16 Setting Ventilator Respiratory Rate 16 Setting Ventilator Respiratory Rate 16 Setting Ventilator Respiratory Rate 16 Setting Ventilator Respiratory Rate 16 Setting Ventilator Respiratory Rate 16 Setting Ventilator Respiratory Rate 16 Setting Ventilator Respiratory Rate 16 Setting Ventilator Respiratory Rate 16 Setting Ventilator Respiratory Rate 16 Setting Actual Respiratory Rate 27 Actual Respiratory Rate 20 Positive End Expiratory 5 Pressure Positive End Expiratory 5 Pressure Positive End Expiratory 5 Pressure Positive End Expiratory 5 Pressure Positive End Expiratory 5 Pressure Positive End Expiratory 5 Pressure Positive End Expiratory 5 Pressure Positive End Expiratory 5 Pressure Positive End Expiratory 5 Pressure Positive End Expiratory 5 Pressure Positive End Expiratory 5 Pressure Peak Inspiratory Airway 18 Pressure Peak Inspiratory Airway 19 Pressure Peak Inspiratory Airway 19 Pressure Peak Inspiratory Airway 17 Pressure Peak Inspiratory Airway 20 Pressure Peak Inspiratory Airway 19 Pressure Peak Inspiratory Airway 17 Pressure Peak Inspiratory Airway 19 Pressure Peak Inspiratory Airway 18 Pressure Results - Laboratory Findings CBC and BMP: 08/15/16 04:00 08/15/16 04:00 ABG ABG pH 7.33 pH Units (7.32-7.45) 08/15/16 04:53 ABG pCO2 42 mmHg (35-45) 08/15/16 04:53 ABG pO2 65 mmHg (85-104) L 08/15/16 04:53 ABG O2 Saturation 91 % (95-98) L 08/15/16 04:53 PT/INR, D-dimer PT 12.8 Seconds (9.4-12.1) H 08/13/16 22:17 Abnormal lab findings: Abnormal lab results WBC 4.1 K/mcL (4.3-11.1) L D 08/15/16 04:00 RBC 3.09 M/mcL (4.19-5.50) L 08/15/16 04:00 Hgb 9.3 g/dL (12.9-16.9) L 08/15/16 04:00 Hct 30.2 % (37.5-50.1) L 08/15/16 04:00 MCHC 30.8 g/dL (31.6-35.5) L 08/15/16 04:00 RDW 14.8 % (11.5-14.5) H 08/15/16 04:00 Plt Count 67 K/mcL (140-400) L 08/15/16 04:00 PT 12.8 Seconds (9.4-12.1) H 08/13/16 22:17 APTT 40.3 Seconds (26.0-36.0) H 08/13/16 22:17 ABG pO2 65 mmHg (85-104) L 08/15/16 04:53 ABG O2 Saturation 91 % (95-98) L 08/15/16 04:53 ABG Base Excess -3.7 mEq/L (-2.0 to 3.0) L 08/15/16 04:53 Chloride 110 mEq/L (98-109) H 08/15/16 04:00 BUN 67 mg/dL (8-26) H 08/15/16 04:00 Creatinine 3.43 mg/dL (0.72-1.25) H 08/15/16 04:00 Est GFR ( Amer) 21 (> 60) L 08/15/16 04:00 Est GFR (Non-Af Amer) 18 (> 60) L 08/15/16 04:00 Calculated Osmolality 316 (280-300) H 08/15/16 04:00 Troponin I 0.10 ng/mL (0-0.03) H* 08/13/16 22:17 B-Natriuretic Peptide 2032 pg/mL (0-100) H 08/13/16 22:17 Serum Total Protein 5.9 g/dL (6.0-8.3) L 08/14/16 03:47 Albumin 2.4 g/dL (3.5-5.0) L 08/14/16 03:47 Albumin/Globulin Ratio 0.7 (1.1-2.2) L 08/14/16 03:47 - Clinical Findings Intake & Output: Intake & Output 08/14/16 08/14/16 08/15/16 15:59 23:59 07:59 Intake Total 200 / 200 200 / 200 200 / 200 Output Total 950 / 950 1150 / 1150 1300 / 1300 Balance -750 / -750 -950 / -950 -1100 / -1100 Weight 85.5 kg Consult Discharge Plan - Plan [facility]errals: [facility] [Primary Care Provider[facility] - <Hema Kim - Last Filed: 08/15/16 09:50> Date of Encounter: 08/15/16 Objective PUL Vital signs: Last Vital Signs Temp 97.6 F 08/15/16 07:20 Pulse 62 08/15/16 09:00 Resp 16 08/15/16 09:24 BP 174/78 08/15/16 09:24 Pulse Ox 99 08/15/16 09:24 Ventilator Settings Ventilator Settings: Ventilator Settings, Last 8 Hours Ventilator Mode VC+ Ventilator Mode VC+ Ventilator Mode A/C Ventilator Mode A/C Ventilator Mode A/C Ventilator Mode A/C Ventilator Mode A/C Ventilator Mode A/C Ventilator Mode A/C Ventilator Mode A/C Ventilator Tidal Volume 400 Setting Ventilator Tidal Volume 400 Setting Ventilator Tidal Volume 400 Setting Ventilator Tidal Volume 400 Setting Ventilator Tidal Volume 400 Setting Ventilator Tidal Volume 400 Setting Ventilator Tidal Volume 400 Setting Ventilator Tidal Volume 400 Setting Ventilator Tidal Volume 400 Setting Ventilator Tidal Volume 400 Setting Ventilator Respiratory Rate 16 Setting Ventilator Respiratory Rate 16 Setting Ventilator Respiratory Rate 16 Setting Ventilator Respiratory Rate 16 Setting Ventilator Respiratory Rate 16 Setting Ventilator Respiratory Rate 16 Setting Ventilator Respiratory Rate 16 Setting Ventilator Respiratory Rate 16 Setting Ventilator Respiratory Rate 16 Setting Ventilator Respiratory Rate 16 Setting Actual Respiratory Rate 17 Actual Respiratory Rate 16 Actual Respiratory Rate 17 Actual Respiratory Rate 27 Positive End Expiratory 5 Pressure Positive End Expiratory 5 Pressure Positive End Expiratory 5 Pressure Positive End Expiratory 5 Pressure Positive End Expiratory 5 Pressure Positive End Expiratory 5 Pressure Positive End Expiratory 5 Pressure Positive End Expiratory 5 Pressure Positive End Expiratory 5 Pressure Positive End Expiratory 5 Pressure Peak Inspiratory Airway 19 Pressure Peak Inspiratory Airway 18 Pressure Peak Inspiratory Airway 18 Pressure Peak Inspiratory Airway 18 Pressure Peak Inspiratory Airway 19 Pressure Peak Inspiratory Airway 19 Pressure Peak Inspiratory Airway 17 Pressure Peak Inspiratory Airway 20 Pressure Results - Laboratory Findings CBC and BMP: 08/15/16 04:00 08/15/16 04:00 ABG ABG pH 7.33 pH Units (7.32-7.45) 08/15/16 04:53 ABG pCO2 42 mmHg (35-45) 08/15/16 04:53 ABG pO2 65 mmHg (85-104) L 08/15/16 04:53 ABG O2 Saturation 91 % (95-98) L 08/15/16 04:53 PT/INR, D-dimer PT 12.8 Seconds (9.4-12.1) H 08/13/16 22:17 Abnormal lab findings: Abnormal lab results WBC 4.1 K/mcL (4.3-11.1) L D 08/15/16 04:00 RBC 3.09 M/mcL (4.19-5.50) L 08/15/16 04:00 Hgb 9.3 g/dL (12.9-16.9) L 08/15/16 04:00 Hct 30.2 % (37.5-50.1) L 08/15/16 04:00 MCHC 30.8 g/dL (31.6-35.5) L 08/15/16 04:00 RDW 14.8 % (11.5-14.5) H 08/15/16 04:00 Plt Count 67 K/mcL (140-400) L 08/15/16 04:00 PT 12.8 Seconds (9.4-12.1) H 08/13/16 22:17 APTT 40.3 Seconds (26.0-36.0) H 08/13/16 22:17 ABG pO2 65 mmHg (85-104) L 08/15/16 04:53 ABG O2 Saturation 91 % (95-98) L 08/15/16 04:53 ABG Base Excess -3.7 mEq/L (-2.0 to 3.0) L 08/15/16 04:53 Chloride 110 mEq/L (98-109) H 08/15/16 04:00 BUN 67 mg/dL (8-26) H 08/15/16 04:00 Creatinine 3.43 mg/dL (0.72-1.25) H 08/15/16 04:00 Est GFR ( Amer) 21 (> 60) L 08/15/16 04:00 Est GFR (Non-Af Amer) 18 (> 60) L 08/15/16 04:00 Calculated Osmolality 316 (280-300) H 08/15/16 04:00 Troponin I 0.10 ng/mL (0-0.03) H* 08/13/16 22:17 B-Natriuretic Peptide 2032 pg/mL (0-100) H 08/13/16 22:17 Serum Total Protein 5.9 g/dL (6.0-8.3) L 08/14/16 03:47 Albumin 2.4 g/dL (3.5-5.0) L 08/14/16 03:47 Albumin/Globulin Ratio 0.7 (1.1-2.2) L 08/14/16 03:47 - Clinical Findings Intake & Output: Intake & Output 08/14/16 08/15/16 08/15/16 23:59 07:59 15:59 Intake Total 200 / 200 200 / 200 Output Total 1150 / 1150 1750 / 1750 Balance -950 / -950 -1550 / -1550 Weight 85.5 kg 84.6 kg
[2016-08-15] MEDS: Pantoprazole 40 MG VIAL IVP SCH (08:14)
[2016-08-15] MEDS: Chlorhexidine Rinse 15 ML MOUTHWASH MM SCH ×2 (08:14→20:09)
[2016-08-15] MEDS: *HR* Heparin 5,000 UNIT/ML VIAL SQ SCH ×3 (08:14→23:36)
[2016-08-15] MEDS: Furosemide 20 MG/2 ML VIAL IVP SCH ×2 (08:14→20:13)
--- NOTE | 2016-08-15 08:53 | Event Note ---
Date of Encounter: 08/15/16 Time of Encounter: 08:48 Patient examined, chart and all data reviewed as well as vitals imaging studies. I agree with the provisions of care evaluation and physical examination findings as outlined by Dr. Ward in her comprehensive progress note. Acute respiratory failure with hypoxia and this particular individual is secondary to acute pulmonary edema presumably due to hypertensive heart disease and acute congestive heart failure secondary to diastolic heart dysfunction (I note an echo was ordered at the time of admission and is still pending). Given substantial diuresis since admission, the patient will be placed on a breathing trial and if appropriate, will be extubated later today. I reviewed the patient[facility] I note that he is on multiple duplicative medications seemingly for treatment of severe hypertension. He currently remains on a nitroglycerin drip with acceptable blood pressure and I will reintroduce Coreg as the first antihypertensive medication anticipating transitioning off nitroglycerin drip over the next 24 hours. Additional anti-hypertensive medications will be introduced as appropriate/necessary. Patient also has chronic kidney disease and in spite of diuresis and overall improvement, I note a mild rise of his serum creatinine value. Management was reviewed with the nursing staff, respiratory therapy staff and the house staff. Julio
[2016-08-15] MEDS: Lacri-Lube 3.5 GM TUBE BOTH EYES SCH ×6 (09:07→23:32)
[2016-08-15] MEDS: Nitroglycerin 25 MG/250 ML INFUS..BTL IVC SCH ×7 (10:26→23:44)
--- NOTE | 2016-08-15 10:43 | Nephrology Progress Note ---
Date of Encounter: 08/15/16 Time of Encounter: 10:30 - Assessment and Plan (1) Acute respiratory failure with hypoxia Current Visit: Yes Status: Acute (2) Congestive heart failure (CHF) Current Visit: Yes Status: Acute Appears to be euvolemic at this time Continue strict I/O and fluid restriction if possible Qualifiers: Congestive heart failure type: unspecified congestive heart failure type Congestive heart failure chronicity: unspecified congestive heart failure chronicity Qualified Code(s): I50.9 - Heart failure, unspecified (3) Hyperkalemia, diminished renal excretion Current Visit: Yes Status: Acute Potassium normalized at 4.4, will monitor (4) Hypertensive urgency Current Visit: Yes Status: Acute Agree with nitro gtt for now and resuming his multiple BP meds slowly starting with coreg just started (5) Chronic kidney disease Current Visit: Yes Status: Chronic SCr mildly worse at 3.43, GFR the same at 18, will monitor. No indication for FAMILY [employer] at this time UOP very robust with diuretics at >3 liters, agree with stopping lasix gtt. Keep euvolemic at this point Will checl PTH and vitamin D levels part of his CKD management and try to obtain records from [facility] as to his baseline and other history Avoid nephrotoxins if possible Qualifiers: Chronic kidney disease stage: unspecified stage Qualified Code(s): N18.9 - Chronic kidney disease, unspecified Subjective Principal diagnosis: Acute respiratory failure Interval history: Pt seen and examined with interim events reviewed. Pt remains intubated but on cPAP trial off lasix gtt but on nitro gtt for BP control Objective - Vital Signs Vital signs: Vital Signs Temp Pulse Resp BP Pulse Ox 08/15/16 10:01 16 174/78 99 08/15/16 10:00 61 12 193/91 99 08/15/16 09:24 16 174/78 99 08/15/16 09:00 62 19 174/78 99 08/15/16 08:12 59 17 164/76 98 08/15/16 08:00 59 17 164/76 98 08/15/16 07:39 59 08/15/16 07:36 59 16 155/69 99 08/15/16 07:20 97.6 F 08/15/16 07:16 22 155/69 98 08/15/16 07:00 60 18 155/69 98 08/15/16 06:35 17 162/72 98 08/15/16 06:00 61 18 171/74 98 08/15/16 05:00 59 18 170/76 96 08/15/16 04:00 97.1 F L 60 20 192/94 97 08/15/16 03:59 27 180/86 99 08/15/16 03:00 60 18 169/76 99 08/15/16 02:00 59 16 162/64 98 08/15/16 01:00 59 19 158/61 97 08/15/16 00:00 98.1 F 62 21 169/76 96 08/14/16 23:38 23 152/65 99 08/14/16 23:00 62 20 161/66 96 08/14/16 22:00 63 18 171/67 99 08/14/16 21:00 66 20 155/61 99 08/14/16 20:30 21 179/73 98 08/14/16 20:00 98.9 F 69 21 179/73 98 08/14/16 18:14 22 175/71 99 08/14/16 18:03 64 22 175/71 99 08/14/16 17:18 62 19 164/62 99 08/14/16 16:36 59 18 162/65 99 08/14/16 16:31 19 162/65 99 08/14/16 15:32 59 19 152/62 99 08/14/16 15:15 97.7 F 08/14/16 14:21 59 19 146/63 99 08/14/16 13:30 59 19 157/61 99 08/14/16 11:26 97.7 F 08/14/16 11:13 64 27 143/71 99 Intake and Output 08/14/16 08/15/16 08/15/16 23:59 07:59 15:59 Intake Total 200 / 200 200 / 200 177 / 177 Output Total 1150 / 1150 1750 / 1750 Balance -950 / -950 -1550 / -1550 177 / 177 Intake: IV Fluids 200 / 200 200 / 200 177 / 177 Versed 50 MG In 0.9 % 100 / 100 100 / 100 25 / 25 Sodium Chloride 90 ML @ 2 MG/HR 4 mls/hr IVC CONT ANTHONY Rx#:[id number] Nitroglycerin 25 mg In 72 / 72 250 ml @ 50 MCG/MIN 30 mls/hr IVC .Q8H20M ANTHONY Rx #:[id number] Diprivan 1,000 mg In 100 100 / 100 100 / 100 80 / 80 ml @ 5 MCG/KG/MIN 2.616 mls/hr IVC .Q24H ANTHONY Rx#: [id number] Output: Catheter 950 / 950 1750 / 1750 Gastric Drainage 200 / 200 Other: Weight 85.5 kg 84.6 kg Blood Glucose* 82 Patient Weight 08/15/16 23:59 Weight 84.6 kg - General Appearance General appearance: Present: chronically ill, intubated EENT: Present: ATNC, mucous membranes moist Neck: Present: no JVD, supple Additional Comments: Good areation ant Cardiology: Present: no edema, normal S1, normal S2 Gastrointestinal: Present: no tenderness, no guarding Integumentary: Present: warm and dry Additional Comments: sleeping but arousable Musculoskeletal: Present: no deformities Additional Comments: intubated - Lab 08/15/16 04:00 08/15/16 04:00 Most recent lab results ABG pH 7.33 pH Units (7.32-7.45) 08/15/16 04:53 ABG pCO2 42 mmHg (35-45) 08/15/16 04:53 ABG pO2 65 mmHg (85-104) L 08/15/16 04:53 ABG HCO3 22.1 mEQ/L (21-27) 08/15/16 04:53 ABG O2 Saturation 91 % (95-98) L 08/15/16 04:53 Calcium 9.4 mg/dL (8.6-10.8) 08/15/16 04:00 Magnesium 1.7 mg/dL (1.6-2.6) 08/14/16 10:22 Consult Discharge Plan - Plan [facility]errals: [facility] [Primary Care Provider] -
--- NOTE | 2016-08-15 11:28 | ECHO - Doppler Report ---
Echocardiogram Name: Noel Castro Date of Study: 08/14/2016 Date: 1940 Ht: Medical Record#: [id number] Age: 76 Wt: 192.0 lb Gender: Male BSA: Order #: [id number] Location: [facility] Room #: IC1 Reading Physician: Jero Rice DO, NUHA, FLORIN CHRISTENSEN School Bus Dispatcher: Roslyn Salgado Ordering Physician: Osbaldo Rider MD Primary Physician: [facility] Indications: Congestive heart failure Impressions: LVEF 45%. Mildly dilated left ventricle. Moderate concentric left ventricular hypertrophy. Mild global left ventricular systolic dysfunction. Probable moderate left ventricular diastolic dysfunction. Atypical septal motion consistent with paced rhythm. Unable to estimate RVSP due to lack of TR jet. A device lead was visualized in the right atrium and right ventricle. Left Ventricular Wall Motion: Rest Echo Findings The apex, apical inferior, mid inferior, basal inferior, apical anterior, mid anterior, basal anterior, apical septal, mid inferior septal, basal inferior septal, apical lateral, mid anterior lateral, basal anterior lateral, mid anterior septal, mid inferior lateral, basal anterior septal and basal inferior lateral osorio were hypokinetic. Findings: Study Quality * Technically adequate exam. ECG Findings * Paced rhythm. Left Ventricle * LVEF 45%. * Mildly dilated left ventricle. * Moderate concentric left ventricular hypertrophy. * Mild global left ventricular systolic dysfunction. * Probable moderate left ventricular diastolic dysfunction. * Atypical septal motion consistent with paced rhythm. Right Ventricle * Mildly dilated right ventricle with normal appearing function. Left Atrium * Moderately dilated left atrium. Right Atrium * Moderately dilated right atrium. Interatrial Septum * No evidence of PFO by color Doppler. Aortic Valve * Trileaflet aortic valve. * Trace aortic regurgitation. * No aortic stenosis. Mitral Valve * Normal mitral valve structure and function. * No mitral stenosis. * Trace mitral regurgitation. Tricuspid Valve * Normal tricuspid valve structure and function. * No tricuspid regurgitation. * Unable to estimate RVSP due to lack of TR jet. Pulmonic Valve * Normal pulmonic valve structure and function. * No pulmonic regurgitation. Aorta * Normally sized aortic root. Pericardium * The pericardium appears normal. IVC * The IVC is dilated. * < 50% respiratory change. Device lead * A device lead was visualized in the right atrium and right ventricle. Pulmonary Artery * Pulmonary artery not well visualized. History Hypertension Congestive Heart Failure Pacer/ICD Implant Measurements: BP: 143/ 71 2D Normal Values RVIDd: 3.63 cm <2.7 cm IVSd: 1.50 cm 0.6 - 1.0 cm LVIDd: 5.80 cm 3.7 - 5.6 cm LVPWd: 1.50 cm 0.6 - 1.1 cm LVIDs: 4.40 cm 1.5 - 3.6 cm LA: 5.40 cm 2.0 - 4.0cm LA volume: 66.6 Mitral Valve Peak E' Lat Unruly:5.55 cm/s Peak E' Med Unruly:5 cm/s E/E' Lat Ratio:14.1 E/E' Med Ratio:15.6 Updated by Jero Rice DO, NUHA, FERMIN, FLORIN on 08/15/2016 11:21:43 AM electronically signed on 08/15/2016 11:22:18 AM with status of Final Wall Motion Patel: 1=Normal, 2=Hypokinesis, 3=Akinesis, 4=Dyskinesis, 5=Aneurysmal, 6=Hyperkinetic, X=Not Visualized (Blank)=Missing
--- NOTE | 2016-08-15 16:08 | Electrocardiograph Report ---
[facility] Test Date: 2016-08-13 Pat Name: Noel Castro Department: 105 Room: 01 Gender: M [employer] Survey Worker: FRANDY : 1940 Requested By: Karsten House Order Number: [id number] Reading MD: Jero Rice DO Measurements Intervals Ferguson Rate: 76 P: 41 KS: 153 QRS: 248 QRSD: 153 T: 82 QT: 456 QTc: 486 Interpretive Statements VENTRICULAR PACED RHYTHM Electronically Signed On 08-15-16 16:07:36 EST by Jero Rice DO
[2016-08-15] MEDS: NIFEdipine XL (24 HR) 60 MG TAB.ER.24 PO SCH (21:24)
[2016-08-16] MEDS: Lacri-Lube 3.5 GM TUBE BOTH EYES SCH ×3 (01:45→11:41)
[2016-08-16] MEDS: Nitroglycerin 25 MG/250 ML INFUS..BTL IVC SCH ×2 (01:51→05:31)
[2016-08-16] MEDS: Furosemide 20 MG/2 ML VIAL IVP SCH ×2 (08:19→20:54)
[2016-08-16] MEDS: *HR* Heparin 5,000 UNIT/ML VIAL SQ SCH ×2 (08:19→16:10)
[2016-08-16] MEDS: Pantoprazole 40 MG VIAL IVP SCH (08:19)
[2016-08-16] MEDS: Chlorhexidine Rinse 15 ML MOUTHWASH MM SCH ×2 (08:20→20:54)
[2016-08-16] MEDS: NIFEdipine XL (24 HR) 60 MG TAB.ER.24 PO SCH ×3 (08:20→21:10)
--- NOTE | 2016-08-16 08:50 | Pulmonology Progress Note ---
Date of Encounter: 08/16/16 Time of Encounter: 08:48 Assessment and Plan (1) Acute respiratory failure with hypoxia Current Visit: Yes Status: Acute Acute respiratory failure with hypoxia is due to acute pulmonary edema likely secondary to diastolic congestive heart failure (acute on chronic). The patient was successfully transitioned off invasive ventilatory support following medical therapy directed toward treatment of pulmonary edema and blood pressure control. I also suspect the patient has underlying COPD every does not suffer from an acute exacerbation. I will defer additional management of hypertension and renal dysfunction to the nephrology service. From my perspective, the patient can be transitioned out of the intensive care unit today. Code(s): J96.01 - Acute respiratory failure with hypoxia SNOMED Code(s): 39494607, 379771017 Subjective Principal diagnosis: Acute respiratory failure Interval history: Patient was successfully extubated on 08-15-16. Her and output and blood pressure are acceptable with current medical therapies although, the patient remains on a nitroglycerin fusion which I discontinued this morning. Aside from fatigue and perhaps mild confusion, the patient denies any specific complaints. No acute issues reported overnight per discussion with nursing staff. Objective PUL Vital signs: Last Vital Signs Temp 97.5 F L 08/16/16 08:07 Pulse 72 08/16/16 08:00 Resp 22 08/16/16 08:00 BP 153/64 08/16/16 08:00 Pulse Ox 95 08/16/16 08:00 General appearance: no acute distress Eyes: nonicteric Auscultation: bilateral: diminished breath sounds, rales Cardiovascular: regular rate and rhythm Gastrointestinal: normoactive bowel sounds, non-distended Extremities: no cyanosis, no edema non-focal exam, other (Mildly confused) Results - Laboratory Findings CBC and BMP: 08/15/16 04:00 08/15/16 04:00 ABG ABG pH 7.33 pH Units (7.32-7.45) 08/15/16 04:53 ABG pCO2 42 mmHg (35-45) 08/15/16 04:53 ABG pO2 65 mmHg (85-104) L 08/15/16 04:53 ABG O2 Saturation 91 % (95-98) L 08/15/16 04:53 PT/INR, D-dimer PT 12.8 Seconds (9.4-12.1) H 08/13/16 22:17 Abnormal lab findings: Abnormal lab results WBC 4.1 K/mcL (4.3-11.1) L D 08/15/16 04:00 RBC 3.09 M/mcL (4.19-5.50) L 08/15/16 04:00 Hgb 9.3 g/dL (12.9-16.9) L 08/15/16 04:00 Hct 30.2 % (37.5-50.1) L 08/15/16 04:00 MCHC 30.8 g/dL (31.6-35.5) L 08/15/16 04:00 RDW 14.8 % (11.5-14.5) H 08/15/16 04:00 Plt Count 67 K/mcL (140-400) L 08/15/16 04:00 PT 12.8 Seconds (9.4-12.1) H 08/13/16 22:17 APTT 40.3 Seconds (26.0-36.0) H 08/13/16 22:17 ABG pO2 65 mmHg (85-104) L 08/15/16 04:53 ABG O2 Saturation 91 % (95-98) L 08/15/16 04:53 ABG Base Excess -3.7 mEq/L (-2.0 to 3.0) L 08/15/16 04:53 Chloride 110 mEq/L (98-109) H 08/15/16 04:00 BUN 67 mg/dL (8-26) H 08/15/16 04:00 Creatinine 3.43 mg/dL (0.72-1.25) H 08/15/16 04:00 Est GFR ( Amer) 21 (> 60) L 08/15/16 04:00 Est GFR (Non-Af Amer) 18 (> 60) L 08/15/16 04:00 POC Glucose 165 (58-89) H 08/15/16 23:46 Calculated Osmolality 316 (280-300) H 08/15/16 04:00 Troponin I 0.10 ng/mL (0-0.03) H* 08/13/16 22:17 B-Natriuretic Peptide 2032 pg/mL (0-100) H 08/13/16 22:17 Serum Total Protein 5.9 g/dL (6.0-8.3) L 08/14/16 03:47 Albumin 2.4 g/dL (3.5-5.0) L 08/14/16 03:47 Albumin/Globulin Ratio 0.7 (1.1-2.2) L 08/14/16 03:47 - Clinical Findings Intake & Output: Intake & Output 08/15/16 08/16/16 08/16/16 23:59 07:59 15:59 Intake Total 1000 / 1000 530 / 530 Output Total 800 / 800 1400 / 1400 200 / 200 Balance 200 / 200 -870 / -870 -200 / -200 Weight 83.064 kg Consult Discharge Plan - Plan [facility]: [facility] [Primary Care Provider] -
--- NOTE | 2016-08-16 10:37 | Procedure Note ---
Date of procedure: 08/14/16 Pre-op diagnosis: Acute respiratory failure with hypoxia Post-op diagnosis: same Procedure: A right IJ central venous catheter was placed without difficulty utilizing sterile Seldinger technique, maximal sterile barrier technique and ultrasound guidance. Garrido was subsequently flushed sutured into position. No untoward events were noted follow-up chest radiograph revealed appropriate placement.
--- NOTE | 2016-08-16 10:47 | Nephrology Progress Note ---
Date of Encounter: 08/16/16 Time of Encounter: 10:45 - Assessment and Plan (1) Acute respiratory failure with hypoxia Current Visit: Yes Status: Acute s/p extubation, will monitor in the next 24hrs. (2) Congestive heart failure (CHF) Current Visit: Yes Status: Acute Appears to be euvolemic at this time Continue strict I/O and fluid restriction if possible Qualifiers: Congestive heart failure type: unspecified congestive heart failure type Congestive heart failure chronicity: unspecified congestive heart failure chronicity Qualified Code(s): I50.9 - Heart failure, unspecified (3) Hyperkalemia, diminished renal excretion Current Visit: Yes Status: Acute Potassium normalized at 4.4 as of yesterday, no new labs available today (4) Hypertensive urgency Current Visit: Yes Status: Acute Agree with nitro gtt for now and resuming his multiple BP meds slowly starting with coreg just started (5) Chronic kidney disease Current Visit: Yes Status: Chronic Last SCr mildly worse at 3.43, GFR the same at 18 as of yesterday. No new labs available today UOP very robust with diuretics at >3 liters on scheduled lasix dosing Avoid nephrotoxins if possible Qualifiers: Chronic kidney disease stage: unspecified stage Qualified Code(s): N18.9 - Chronic kidney disease, unspecified (6) Hypertension Current Visit: Yes Status: Chronic Continue coreg and nifedine resumed last night. Can add other other home BP meds gradually off nitro gtt to get BP to 150-160s systolic consistently. Qualifiers: Hypertension type: essential hypertension Qualified Code(s): I10 - Essential (primary) hypertension Subjective Principal diagnosis: Acute respiratory failure Interval history: Pt seen and examined s/p extubation yesterday and off nitro gtt this am. For transfer out of the ICU later today.Appears comfortably resting but easily aroused. Objective - Vital Signs Vital signs: Vital Signs Temp Pulse Resp BP Pulse Ox 08/16/16 09:28 74 23 172/68 94 L 08/16/16 09:02 21 172/68 93 L 08/16/16 08:07 97.5 F L 08/16/16 08:00 97.5 F L 66 22 153/64 95 08/16/16 06:00 66 22 143/71 95 08/16/16 05:00 76 20 170/77 98 08/16/16 04:57 98.7 F 01/28/17 04:12 22 95 08/16/16 04:00 74 18 165/75 96 08/16/16 03:00 89 26 130/66 92 L 08/16/16 02:00 66 26 128/61 92 L 08/16/16 01:00 64 16 168/78 96 08/16/16 00:28 24 96 08/16/16 00:00 99.7 F H 93 18 171/81 95 08/15/16 23:00 98 18 167/82 95 08/15/16 22:00 66 24 164/81 95 08/15/16 21:00 58 22 185/77 94 L 08/15/16 20:50 24 95 08/15/16 20:06 99.2 F 08/15/16 20:00 96 18 176/93 95 08/15/16 19:00 61 20 170/70 94 L 08/15/16 18:00 84 20 173/89 95 08/15/16 17:00 70 18 169/91 94 L 08/15/16 16:10 97.9 F 08/15/16 16:00 80 16 169/82 97 08/15/16 15:09 16 96 08/15/16 15:05 15 171/73 95 08/15/16 15:01 66 08/15/16 15:00 60 16 171/73 95 08/15/16 14:53 66 19 180/81 95 08/15/16 14:00 66 19 180/81 95 08/15/16 13:00 68 15 178/86 96 08/15/16 12:52 13 183/92 96 08/15/16 12:00 68 17 192/93 96 08/15/16 11:43 13 183/92 96 08/15/16 11:17 63 08/15/16 11:00 63 11 192/94 95 Intake and Output 08/15/16 08/16/16 08/16/16 23:59 07:59 15:59 Intake Total 1000 / 1000 530 / 530 163 / 163 Output Total 800 / 800 1400 / 1400 200 / 200 Balance 200 / 200 -870 / -870 -37 / -37 Intake: IV Fluids 1000 / 1000 530 / 530 163 / 163 Versed 50 MG In 0.9 % 0 / 0 Sodium Chloride 90 ML @ 2 MG/HR 4 mls/hr IVC CONT ANTHONY Rx#:[id number] Nitroglycerin 25 mg In 1000 / 1000 530 / 530 163 / 163 250 ml @ 50 MCG/MIN 30 mls/hr IVC .Q8H20M ANTHONY Rx #:[id number] Diprivan 1,000 mg In 100 0 / 0 ml @ 5 MCG/KG/MIN 2.616 mls/hr IVC .Q24H ANTHONY Rx#: [id number] Output: Catheter 800 / 800 1400 / 1400 200 / 200 Other: Weight 83.064 kg Blood Glucose* 194 Patient Weight 08/16/16 23:59 Weight 83.064 kg EENT: Present: ATNC, mucous membranes moist Neck: Present: no JVD, supple Additional Comments: good aeration ant bilat Cardiology: Present: no edema, normal S1, normal S2 Gastrointestinal: Present: no tenderness, no guarding Integumentary: Present: warm and dry Additional Comments: resting but arousable Musculoskeletal: Present: no deformities Psychiatric: Present: cooperative - Lab 08/15/16 04:00 08/15/16 04:00 Most recent lab results ABG pH 7.33 pH Units (7.32-7.45) 08/15/16 04:53 ABG pCO2 42 mmHg (35-45) 08/15/16 04:53 ABG pO2 65 mmHg (85-104) L 08/15/16 04:53 ABG HCO3 22.1 mEQ/L (21-27) 08/15/16 04:53 ABG O2 Saturation 91 % (95-98) L 08/15/16 04:53 Calcium 9.4 mg/dL (8.6-10.8) 08/15/16 04:00 Magnesium 1.7 mg/dL (1.6-2.6) 08/14/16 10:22 Consult Discharge Plan - Plan [facility]errals: [facility] [Primary Care Provider] -
[2016-08-16] MEDS ORDERED: Naloxone 0.4 MG/ML INJ IVP PRN (12:33)
[2016-08-16] MEDS: Melatonin 3 MG TABLET PO SCH (21:44)
[2016-08-17] MEDS: *HR* Heparin 5,000 UNIT/ML VIAL SQ SCH ×3 (00:01→16:30)
[2016-08-17] MEDS: Chlorhexidine Rinse 15 ML MOUTHWASH MM SCH ×2 (07:56→20:50)
[2016-08-17] MEDS: Furosemide 20 MG/2 ML VIAL IVP SCH ×2 (07:57→20:51)
[2016-08-17] MEDS: NIFEdipine XL (24 HR) 60 MG TAB.ER.24 PO SCH ×2 (07:57→20:50)
[2016-08-17] MEDS ORDERED: Artificial Tears SOLN 15 ML BOTTLE OP PRN (11:19)
[2016-08-17] MEDS ORDERED: Melatonin 3 MG TABLET PO PRN (11:19)
[2016-08-17] MEDS: hydrALAZINE 25 MG TABLET PO SCH ×3 (13:56→20:50)
[2016-08-17] MEDS: Finasteride 5 MG TABLET PO SCH (13:57)
--- NOTE | 2016-08-17 16:16 | Event Note ---
Date of Encounter: 08/17/16 Time of Encounter: 14:15 No labs available for review in the past 2 days to assess renal fxn but UOP has stayed very robust >3liters a day. BP still fluctuating off nitro gtt. Home BP meds now resumed. Goal is to keep BP running around 150s-160s systolic.Will see pt in am for eval.
[2016-08-17] MEDS: cloNIDine HCl 0.1 MG TABLET PO SCH ×2 (16:31→20:50)
--- NOTE | 2016-08-17 16:34 | Internal Med Progress Note ---
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 Acute hypoxemic respiratory failure: Improved. Continue supplemental O2 2. CHFrEF exacerbation: ECHO showed LVEF 45%, LV dilatation and moderate LVDD. Continue lasix at same dose, resume home po meds 3. HTN Emerggency: Resolved. Continue current meds, monitor BP 4. CKD IV: Nephrology on board, follow recs. Follow chem 5. Hyperkalemia: Resolved. Monitor chem 6. Seizure disorder/TBI: Resume home dose of phenytoin, check phenytoin level in 48hrs - Constitutional Vitals: Temp Pulse Resp BP Pulse Ox 99 F 60 18 162/73 96 08/17/16 15:49 08/17/16 15:49 08/17/16 15:49 08/17/16 15:49 08/17/16 15:49 General appearance: Present: A&O X 3, pleasant, no acute distress - Head Head exam: Present: atraumatic, normocephalic - Eye Eye exam: Present: PERRL, conjuntiva pink, sclera anicteric Pupils: Present: PERRL - Neck Neck exam general surgery: Present: supple, trachea midline. Absent: lymphadenopathy - Respiratory Respiratory exam: Absent: accessory muscle use, rales, rhonchi, wheezes Additional comments: Coarse breath sounds at the bases, otherwise stable - Cardiovascular Cardiovascular exam: Present: RRR, +S1, +S2. Absent: diastolic murmur, gallop, rubs, systolic murmur - GI/Abdominal GI/Abdominal exam: Present: normal bowel sounds, soft, no peritoneal signs. Absent: distended, tenderness - Additional comments: Barrett draining clear urine - Extremities Exam Extremities exam: Present: pedal edema - Neurological Exam Neurological exam: Present: CN II-XII intact, oriented X3, no focal deficits. Absent: pronater drift, facial droop, speech deficit Internal Medicine: Result - Labs CBC & Chem 7: 08/15/16 04:00 08/15/16 04:00 - ABG Interpretation ABG results: ABG ABG pH 7.33 pH Units (7.32-7.45) 08/15/16 04:53 ABG pCO2 42 mmHg (35-45) 08/15/16 04:53 ABG pO2 65 mmHg (85-104) L 08/15/16 04:53 ABG O2 Saturation 91 % (95-98) L 08/15/16 04:53 PT/INR, D-dimer PT 12.8 Seconds (9.4-12.1) H 08/13/16 22:17 Consult Discharge Plan - Plan [facility]errals: [facility] [Primary Care Provider] -
[2016-08-17] MEDS: Isosorbide MONOnitrate (24 HR) 60 MG TAB.ER.24H PO SCH (20:51)
[2016-08-17] MEDS: Melatonin 3 MG TABLET PO SCH (20:51)
[2016-08-18] MEDS: *HR* Heparin 5,000 UNIT/ML VIAL SQ SCH ×2 (00:27→08:02)
[2016-08-18 05:58] LABS: Basophils % 0.3 %; Immature Granulocytes % 0.3 % (0-4)
[2016-08-18 06:00] LABS: Eosinophils # 0.2 K/mcL (0.0-0.6); Eosinophils % 5.1 %; Hematocrit 27.5 % (37.5-50.1); Immature Platelets 2.3 % (1.1-6.1); Lymphocytes % 18.7 %; Mean Corpuscular HGB Conc 32.7 g/dL (31.6-35.5); Mean Corpuscular Hemoglobin 30.6 pg (28.0-33.3); Mean Corpuscular Volume 93.5 fL (83.0-100.0); Mean Platelet Volume 10.8 fL (9.4-12.4); Monocytes # 0.3 K/mcL (0.0-1.3); Monocytes % 8.1 %; Neutrophils # 2.7 K/mcL (1.6-8.9); Red Blood Count 2.94 M/mcL (4.19-5.50); Segmented Neutrophils % 67.5 %
[2016-08-18 06:02] LABS: Lymphocytes # 0.8 K/mcL (0.6-4.6)
[2016-08-18 06:03] LABS: Platelet Count 72 K/mcL (140-400)
[2016-08-18 06:14] LABS: Calcium 9.3 mg/dL (8.6-10.8); Potassium 3.7 mEq/L (3.5-4.5)
[2016-08-18] MEDS: Chlorhexidine Rinse 15 ML MOUTHWASH MM SCH (08:02)
[2016-08-18] MEDS: Furosemide 20 MG/2 ML VIAL IVP SCH (08:02)
[2016-08-18] MEDS: Finasteride 5 MG TABLET PO SCH (08:03)
[2016-08-18] MEDS: Isosorbide MONOnitrate (24 HR) 60 MG TAB.ER.24H PO SCH (08:04)
[2016-08-18] MEDS: NIFEdipine XL (24 HR) 60 MG TAB.ER.24 PO SCH (08:04)
[2016-08-18] MEDS: cloNIDine HCl 0.1 MG TABLET PO SCH (08:04)
[2016-08-18] MEDS: hydrALAZINE 25 MG TABLET PO SCH (08:04)
[2016-08-18] MEDS ORDERED: Cholecalciferol (D-3) 1,000 UNIT TABLET PO SCH ×2 (09:00→12:06)
[2016-08-18] MEDS ORDERED: Lactobacillus 1 EACH CAP.SPRINK PO SCH (09:00)
[2016-08-18] MEDS ORDERED: Cyanocobalamin (B-12) 1,000 MCG TABLET PO SCH (09:00)
--- NOTE | 2016-08-18 10:13 | Discharge Summary ---
Date of Encounter: 08/18/16 Time of Encounter: 10:07 - Discharge Diagnosis (1) Acute exacerbation of CHF (congestive heart failure) Priority: Primary Status: Acute Qualifiers: Congestive heart failure type: unspecified congestive heart failure type Qualified Code(s): I50.9 - Heart failure, unspecified (2) Acute respiratory failure with hypoxia Priority: Primary Status: Acute (3) Hyperkalemia, diminished renal excretion Priority: Primary Status: Resolved (4) Hypertensive urgency Priority: Primary Status: Resolved (5) Chronic kidney disease Priority: Secondary Status: Chronic Qualifiers: Chronic kidney disease stage: unspecified stage Qualified Code(s): N18.9 - Chronic kidney disease, unspecified (6) Hypertension Priority: Secondary Status: Chronic Qualifiers: Hypertension type: essential hypertension Qualified Code(s): I10 - Essential (primary) hypertension (7) Seizure Priority: Secondary Status: Chronic - Discharge Medications Prescriptions: Furosemide [Lasix] 20 mg PO BID #60 tablet Home Medications: Atorvastatin [Lipitor] 40 mg PO HS 08/14/16 [History] Calcitriol [Rocaltrol] 0.5 mcg PO DAILY 08/14/16 [History] Carvedilol [Coreg] 50 mg PO BID 08/14/16 [History] Cholecalciferol (D-3) [Vitamin D] 1,000 unit PO DAILY 08/14/16 [History] CloNIDine HCl [Clonidine HCl] 0.2 mg PO TID 08/14/16 [History] Cyanocobalamin (Vitamin B-12) [Vitamin B-12] 200 mcg PO DAILY 08/14/16 [History] Dextran 70/Hypromellose [Natural Balance Tears Eye Drop] 1 drop OP QID PRN 08/14 [History] Duloxetine HCl [Cymbalta] 60 mg PO DAILY 08/14/16 [History] Ferrous Gluconate 324 mg PO DAILY 08/14/16 [History] Finasteride [Proscar] 5 mg PO DAILY 08/14/16 [History] GuaiFENesin/Dextromethorphan [Kro Tussin Dm Max Liquid] 5 ml PO Q4H PRN [History] Hydralazine HCl 100 mg PO TID 08/14/16 [History] Hydrophilic Cream [Basle] 1 appl TP DAILY PRN 08/14/16 [History] Insulin ASPART [NovoLOG] 7 unit SQ TID 08/14/16 [History] Insulin Glargine [Lantus] 10 unit SQ BID 08/14/16 [History] Isosorbide MONOnitrate [Isosorbide Mononitrate ER] 120 mg PO BID 08/14/16 [ History] Lactobacillus Acidophilus [Acidophilus Lactobacillus] 2 each PO DAILY 08/14/16 [ History] Lidocaine 4% CRM (LMX) [Lmx 4] 1 appl TP Q8H PRN 08/14/16 [History] Melatonin 6 mg PO HS PRN 08/14/16 [History] Minoxidil 5 mg PO DAILY 08/14/16 [History] NIFEdipine [Afeditab Cr] 60 mg PO BID 08/14/16 [History] Nitroglycerin [Nitrostat] 0.4 mg SL Q5M PRN 08/14/16 [History] Pantoprazole Sodium [Protonix] 40 mg PO DAILY 08/14/16 [History] Tamsulosin [Flomax] 0.8 mg PO DAILY 08/14/16 [History] Zolpidem [Ambien] 10 mg PO HS PRN 08/14/16 [History] Furosemide [Lasix] 20 mg PO BID #60 tablet 08/18/16 [Rx] Lisinopril 10 mg PO BID #0 08/18/16 [Rx] Phenytoin ER [Dilantin ER] 100 mg PO QID #0 08/18/16 [Rx] Allergies/Adverse Reactions: Allergies No Known Allergies Allergy (Verified 08/13/16 23:14) Date of admission: 08/14/16 00:44 [facility] physician: [facility] Consults: 08/14/16 09:02 Consult to Nephrology [CONS] Routine Consulting Provider: [facility] Reason for Consult: CKD with volume overload Call Completed: No Discharging clinician: Vasyl Deras Anticipated date of discharge: 08/18/16 - Patient Status Disposition: Transfer Inpatient Rehab Fac Condition: Fair Functional capacity at discharge: uses cane/walker Overall status at discharge: patient is progressing back to baseline - Discharge Instructions Follow Up With: [facility] [Primary Care Provider] - - Diet and Activity Activity: resume usual activities as tolerated, wear oxygen at all times Diet: advance to your usual diet Interval History: See below Hospital course: 76 Y/O M admitted for management of respiratory failure , CHFrEF exacerbation, Hyperkalemia He was intubated on admission, subsequently extubated and transferred to the floors, continues to require oxygen 2L He is seen at bedside in no distress. 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 Continue home dose, Lisinopril at a decreased dose. - Time Spent with Patient Total time spent providing and/or coordinating discharge services: Less than 30 minutes - Constitutional Vitals: Temp Pulse Resp BP Pulse Ox 98 F 68 16 139/52 98 08/18/16 06:51 08/18/16 06:51 08/18/16 07:29 08/18/16 06:51 08/18/16 08:15 General appearance: Present: A&O X 3, pleasant, no acute distress - Head Head exam: Present: atraumatic, normocephalic - Eye Eye exam: Present: PERRL, conjuntiva pink, sclera anicteric Pupils: Present: PERRL - Neck Neck exam general surgery: Present: supple, trachea midline. Absent: lymphadenopathy - Respiratory Respiratory exam: Absent: accessory muscle use, rales, rhonchi, wheezes Additional comments: Coarse breath sounds at the bases - Cardiovascular Cardiovascular exam: Present: RRR, +S1, +S2, systolic murmur. Absent: diastolic murmur, gallop, rubs - GI/Abdominal GI/Abdominal exam: Present: normal bowel sounds, soft, no peritoneal signs. Absent: distended, tenderness - Extremities Exam Extremities exam: Absent: pedal edema - Neurological Exam Neurological exam: Present: CN II-XII intact, oriented X3, no focal deficits. Absent: pronater drift, facial droop, speech deficit - Skin Skin exam: Present: dry
[2016-08-18 10:48] VITALS: BP 109/45
[2016-08-18] MEDS ORDERED: *HR* Dextrose 50 % in Water (Syg) 50 ML SYRINGE IVP PRN (10:54)
[2016-08-18] MEDS ORDERED: Dextrose Gel 15 GM PO PRN ×2 (10:54)
[2016-08-18] MEDS ORDERED: D5% in Water 1,000 ML IV PRN (10:54)
[2016-08-18] MEDS ORDERED: Insulin LISPRO 300 UNITS/3 ML VIAL SQ SCH ×2 (11:30→21:00)
--- NOTE | 2016-08-18 12:02 | Nephrology Progress Note ---
Date of Encounter: 08/18/16 Time of Encounter: 11:55 - Assessment and Plan (1) Acute respiratory failure with hypoxia Status: Acute resolved (2) Congestive heart failure (CHF) Status: Acute resolved Qualifiers: Congestive heart failure type: unspecified congestive heart failure type Congestive heart failure chronicity: unspecified congestive heart failure chronicity Qualified Code(s): I50.9 - Heart failure, unspecified (3) Hyperkalemia, diminished renal excretion Status: Resolved resolved (4) Hypertensive urgency Status: Resolved BP readings much better on all home BP meds, will continue (5) Chronic kidney disease Status: Chronic SCr improved at 2.85, GFR 22, baseline unknown but probably close if not there already UOP remains very good at .2liters in the past 24hrs Followup with supervisor net making at [facility] on discharge PTH slightly elevated but acceptable for stage 4 CKD, continue calcitriol Vitamin D low, will increase supplements to 2000iu daily Qualifiers: Chronic kidney disease stage: unspecified stage Qualified Code(s): N18.9 - Chronic kidney disease, unspecified (6) Hypertension Status: Chronic Continue coreg and nifedine resumed last night. Can add other other home BP meds gradually off nitro gtt to get BP to 150-160s systolic consistently. Qualifiers: Hypertension type: essential hypertension Qualified Code(s): I10 - Essential (primary) hypertension Subjective Principal diagnosis: Acute respiratory failure Interval history: Pt seen and examined with no new complaints. BP readings much improved. Objective - Vital Signs Vital signs: Vital Signs Temp Pulse Resp BP Pulse Ox 08/18/16 11:35 16 97 08/18/16 10:46 97.5 F L 60 16 109/45 97 08/18/16 08:15 98 08/18/16 07:29 16 98 08/18/16 06:51 98 F 68 16 139/52 98 08/18/16 04:43 16 94 L 08/18/16 04:27 97.4 F L 61 12 123/50 93 L 08/18/16 00:19 14 99 08/17/16 23:31 97.8 F 61 12 140/52 98 08/17/16 20:13 16 98 08/17/16 19:32 97.7 F 60 16 161/63 97 08/17/16 16:43 18 94 L 08/17/16 15:49 99 F 60 18 162/73 96 Intake and Output 08/17/16 08/18/16 08/18/16 23:59 07:59 15:59 Intake Total 0 / 0 200 / 200 0 / 0 Output Total 0 / 0 600 / 600 Balance 0 / 0 200 / 200 -600 / -600 Intake: Oral 0 / 0 200 / 200 0 / 0 Output: Urine 0 / 0 0 / 0 Catheter 600 / 600 Other: Weight 82.5 kg Blood Glucose* 270 197 251 Patient Weight 08/18/16 23:59 Weight 82.5 kg - General Appearance General appearance: Present: frail (NAD) EENT: Present: ATNC, mucous membranes moist Neck: Present: no JVD, supple Respiratory: Present: clear Cardiology: Present: no edema, normal S1, normal S2 Gastrointestinal: Present: no tenderness, no guarding Integumentary: Present: warm and dry Neurologic: Present: no focal deficit Musculoskeletal: Present: no deformities Psychiatric: Present: mood/affect appropriate - Lab 08/18/16 05:49 08/18/16 05:49 Most recent lab results ABG pH 7.33 pH Units (7.32-7.45) 08/15/16 04:53 ABG pCO2 42 mmHg (35-45) 08/15/16 04:53 ABG pO2 65 mmHg (85-104) L 08/15/16 04:53 ABG HCO3 22.1 mEQ/L (21-27) 08/15/16 04:53 ABG O2 Saturation 91 % (95-98) L 08/15/16 04:53 Calcium 9.3 mg/dL (8.6-10.8) 08/18/16 05:49 Magnesium 1.7 mg/dL (1.6-2.6) 08/14/16 10:22 Consult Discharge Plan - Plan Instructions: Heart Failure (DC), Acute Respiratory Distress Syndrome (DC), Chronic Hypertension (DC) [facility]errals: [facility] [Primary Care Provider] - Prescriptions: Furosemide [Lasix] 20 mg PO BID #60 tablet
== END 2016-08-18 13:21 | DRG 291 ==
LOC: EMEROO 21:39 → ICNU 08-14 00:44 → 2ANU 08-16 12:32
PROVIDERS: ADMIT Family Medicine; ATTEND Family Medicine

== ENCOUNTER 2017-02-07 19:12 | Inpatient (IN) ==
--- NOTE | 2017-02-07 19:23 | Emergency Department Note ---
Disposition Clinical Impression: Seizure, Subtherapeutic phenytoin level Disposition: Admitted As Inpatient Condition: Good Time of Disposition: 23:00 Seizure HPI - General Chief Complaint: ED Seizure Stated Complaint: seizure Time Seen by Provider: 02/07/17 19:16 Source: EMS Mode of arrival: EMS Limitations: altered mental status Nursing Notes Reviewed: Yes Vital Signs Reviewed: Yes - History of Present Illness HPI Narrative: 76-year-old male history of seizures presents to the ED via EMS from [place] [facility] for seizure. This reportedly lasted for 2 minutes. No additional information was provided by EMS. No chart or history and physical provided from the [facility]. There is reports that patient has been refusing his antiepileptic medications. Patient was given 2 mg Ativan form the [facility]. No signs of trauma. Patient takes Dilantin. Patient currently appears post-ictal. [facility] shows that he was cleared from the psychiatric unit in care was turned over to the family. However today patient was very agitated. It appears his glucose level was elevated throughout the day 289. On the most recent note patient reportedly had a typical seizure that lasted 2 minutes. During their examination he was in his post ictal state unable to get further information. Patient presents here confused without any obvious signs of trauma. He has a rosales catheter in place. No tongue trauma. Lungs are clear to auscultation. He had a IV in the left AC that appears to have gone bad. Unable to give additional medications, will search for new IV. Pt Subjective Complaint: seizure - Related Data Home Medications Medication Instructions Recorded Confirmed Atorvastatin [Lipitor] 40 mg PO HS 08/14/16 01/07/17 Carvedilol [Coreg] 25 mg PO BID 08/14/16 01/07/17 Cholecalciferol (D-3) [Vitamin D] 2,000 unit PO DAILY 08/14/16 01/07/17 Cyanocobalamin (Vitamin B-12) 500 mcg PO DAILY 08/14/16 01/07/17 [Vitamin B-12] Dextran 70/Hypromellose [Natural 1 drop OP QID PRN 08/14/16 01/07/17 Balance Tears Eye Drop] Ferrous Gluconate 324 mg PO DAILY 08/14/16 01/07/17 Finasteride [Proscar] 5 mg PO DAILY 08/14/16 01/07/17 Hydralazine HCl 100 mg PO TID 08/14/16 01/07/17 Insulin ASPART [NovoLOG] 0 unit SQ TID MDD PER SLIDING SCALE 08/14/16 01/07/17 Isosorbide MONOnitrate [Isosorbide 30 mg PO DAILY 08/14/16 01/07/17 Mononitrate ER] Melatonin 6 mg PO HS PRN 08/14/16 01/07/17 NIFEdipine [Afeditab Cr] 90 mg PO DAILY 08/14/16 01/07/17 Nitroglycerin [Nitrostat] 0.4 mg SL Q5M PRN 08/14/16 01/07/17 Pantoprazole Sodium [Protonix] 40 mg PO DAILY 08/14/16 01/07/17 Tamsulosin [Flomax] 0.8 mg PO DAILY 08/14/16 01/07/17 Aspirin [Lo-Dose Aspirin EC] 81 mg PO DAILY 01/07/17 01/07/17 Calcium Acetate [Phos-LO] 667 mg PO TIDWM 01/07/17 01/07/17 CloNIDine Patch [Catapres-TTS] 0.2 mg TD SA 01/07/17 01/07/17 Furosemide [Lasix] 40 mg PO DAILY 01/07/17 01/07/17 Ipratropium/Albuterol Neb [Duoneb] 3 ml IH Q4HR PRN 01/07/17 01/07/17 Polyethylene Glycol 3350 [Purelax] 17 gm PO DAILY PRN 01/07/17 01/07/17 Quetiapine Fumarate [SEROquel] 25 mg PO HS 01/07/17 01/07/17 Sennosides [Senna] 8.6 mg PO BID PRN 01/07/17 01/07/17 Sertraline [Zoloft] 25 mg PO DAILY 01/07/17 01/07/17 Sodium Bicarbonate 1,300 mg PO BID 01/07/17 01/07/17 Sodium Polystyrene Sulfonate 15 gm PO MOTUWETHFR 01/07/17 01/07/17 [Kayexalate] Tramadol HCl [Ultram] 50 mg PO BID PRN 01/07/17 01/07/17 Previous Rx's Medication Instructions Recorded Phenytoin ER [Dilantin ER] 100 mg PO QID #0 08/18/16 Allergies Allergy/AdvReac Type Severity Reaction Status Date / Time No Known Allergies Allergy Verified 08/13/16 23:14 Limitations: ROS unobtainable due to patients medical condition Past Medical History - Past Medical History Source: old records reviewed Medical history: Reports: coronary artery disease, CVA, hyperlipidemia, hypertension, renal disease Surgical history: Reports: non-contributory Psychiatric history: Reports: no psych history - Social History Smoking Status: Never smoker Smokeless Tobacco Status: No Alcohol use: Reports: none Drug use: Reports: none Physical Exam - General Limitations: altered mental status General appearance: in no apparent distress - Head Head exam: atraumatic, normocephalic, normal inspection - Eye Eye exam: Present: normal appearance, PERRL, EOMI - ENT ENT exam: normal exam, normal oropharynx, mucous membranes moist - Expanded ENT Exam External ear exam: Present: normal external inspection Mouth exam: Present: tongue normal. Absent: drooling, tounge swelling, laceration - Neck Neck exam: Present: normal inspection, full ROM, trachea midline. Absent: tenderness - Chest Chest inspection: Present: normal inspection, symmetric chest wall rise, other ( pacemaker). Absent: tenderness - Respiratory Respiratory exam: Present: normal lung sounds bilaterally. Absent: respiratory distress, wheezes - Cardiovascular Cardiovascular exam: Present: regular rate, normal rhythm, normal heart sounds - Abdominal Exam Abdominal exam: Present: soft, Non-Tender, normal bowel sounds. Absent: tenderness, distention, guarding, rebound, rigidity Course - Reevaluation(s) Reevaluation #1: Patient had a tonic clonic seizure that lasted 15 to 22 seconds. He is now snoring. Protecting his airway. Witnessed by medical student. He reportedly felt surendra seizure coming on, went completely unresponsive. Currently post-ictal. Dilantin level is 0.9. Will give additional 2 mg Ativan and load with 1 g Fosphenytoin. Time: 20:32 Reevaluation #2: Patient is currently awake alert and oriented to person and place. He is not complaining of any pain at this time. No obvious trauma to the tongue. EJ placed by myself on the right. Time: 21:29 - Consultations Consultation #1: Awaiting for the inpatient [facility] physician to call back. Appears he was a psychiatric inpatient discharged and requested to be discharged home with family but presents here for seizure with known seizure disorder. He has been refusing antiepileptic medications over the last 3 days. Time: 21:15 Consultation #2: Spoke to Dr. Moses from the [facility], does not feel comfortable with patient returning to the [facility] without neurology in house. Recommends admission here at [facility] for observation. Discussed that patient's phenytoin level was subtherapeutic 0.9 and loaded with Fosphenytoin. Will order additional labs including CBC and CMP. Plan for admission. Time: 21:46 Consultation #3: Spoke with on-call hospitalist eva Hester to admit for seizure and subtherapeutic Phenytoin. No further orders at this time Time: 22:59 Vital Signs Temperature 97.7 F 02/07/17 19:14 Pulse Rate 66 02/07/17 19:14 Respiratory Rate 20 02/07/17 19:14 Blood Pressure 189/82 02/07/17 19:14 O2 Sat by Pulse Oximetry 100 02/07/17 19:14 Temperature 97.7 F 02/07/17 19:14 Pulse Rate 60 02/07/17 23:00 Respiratory Rate 0 02/07/17 23:36 Blood Pressure 0/0 02/07/17 23:36 O2 Sat by Pulse Oximetry 98 02/07/17 23:00 Oxygen Delivery Oxygen Delivery Room Air Procedures - EJ/Peripheral Line Neck R Consent Obtained: verbal consent Time Out Performed: Yes Skin Cleansed in Sterile Fashion: Yes Size: 20 IV Secured and Dressing Applied: Yes Patient Tolerated Procedure: well Seizure - Medical Records Medical records reviewed: Yes I reviewed the patient's medical records. - Lab Data Lab results reviewed: Yes I reviewed the patient's lab results. Result diagrams: 02/07/17 19:52 02/07/17 19:52 Lab Results 02/07/17 02/07/17 02/07/17 Range/Units 19:52 19:52 19:52 WBC 6.0 (4.3-11.1) K/mcL RBC 3.15 L (4.19-5.50) M/mcL Hgb 9.3 L (12.9-16.9) g/dL Hct 29.5 L (37.5-50.1) % MCV 93.7 (83.0-100.0) fL MCH 29.5 (28.0-33.3) pg MCHC 31.5 L (31.6-35.5) g/dL RDW 14.4 (11.5-14.5) % Plt Count 112 L (140-400) K/mcL MPV 10.4 (9.4-12.4) fL Immature Gran % 0.3 (0-4) % Seg Neutrophils % 70.1 % Lymphocytes % 15.4 % Monocytes % 8.1 % Eosinophils % 5.8 % Basophils % 0.3 % Neutrophils # 4.2 (1.6-8.9) K/mcL Lymphocytes # 0.9 (0.6-4.6) K/mcL Monocytes # 0.5 (0.0-1.3) K/mcL Eosinophils # 0.4 (0.0-0.6) K/mcL Basophils # 0.0 (0.0-0.2) K/mcL Sodium 140 (136-145) mEq/L Potassium 4.7 H (3.5-4.5) mEq/L Chloride 104 (98-109) mEq/L Carbon Dioxide 24 (19-29) mEq/L BUN 60 H (8-26) mg/dL Creatinine 3.82 H (0.72-1.25) mg/dL Est GFR ( Amer) 19 L (> 60) Est GFR (Non-Af Amer) 15 L (> 60) BUN/Creatinine Ratio 16 (6-26) Glucose 217 H (70-99) mg/dL Calculated Osmolality 313 H (280-300) Calcium 9.9 (8.6-10.8) mg/dL Magnesium (1.6-2.6) mg/dL Total Bilirubin 0.3 (0.2-1.2) mg/dL AST 27 (5-34) Units/L ALT 24 (0-55) Units/L Alkaline Phosphatase 138 H (38-126) Units/L Serum Total Protein 7.0 (6.0-8.3) g/dL Albumin 3.0 L (3.5-5.0) g/dL Globulin 4.0 H (2.4-3.5) g/dL Albumin/Globulin Ratio 0.8 L (1.1-2.2) Phenytoin 0.9 L (10-20) mcg/mL 02/07/17 Range/Units 19:52 WBC (4.3-11.1) K/mcL RBC (4.19-5.50) M/mcL Hgb (12.9-16.9) g/dL Hct (37.5-50.1) % MCV (83.0-100.0) fL MCH (28.0-33.3) pg MCHC (31.6-35.5) g/dL RDW (11.5-14.5) % Plt Count (140-400) K/mcL MPV (9.4-12.4) fL Immature Gran % (0-4) % Seg Neutrophils % % Lymphocytes % % Monocytes % % Eosinophils % % Basophils % % Neutrophils # (1.6-8.9) K/mcL Lymphocytes # (0.6-4.6) K/mcL Monocytes # (0.0-1.3) K/mcL Eosinophils # (0.0-0.6) K/mcL Basophils # (0.0-0.2) K/mcL Sodium (136-145) mEq/L Potassium (3.5-4.5) mEq/L Chloride (98-109) mEq/L Carbon Dioxide (19-29) mEq/L BUN (8-26) mg/dL Creatinine (0.72-1.25) mg/dL Est GFR ( Amer) (> 60) Est GFR (Non-Af Amer) (> 60) BUN/Creatinine Ratio (6-26) Glucose (70-99) mg/dL Calculated Osmolality (280-300) Calcium (8.6-10.8) mg/dL Magnesium 2.3 (1.6-2.6) mg/dL Total Bilirubin (0.2-1.2) mg/dL AST (5-34) Units/L ALT (0-55) Units/L Alkaline Phosphatase (38-126) Units/L Serum Total Protein (6.0-8.3) g/dL Albumin (3.5-5.0) g/dL Globulin (2.4-3.5) g/dL Albumin/Globulin Ratio (1.1-2.2) Phenytoin (10-20) mcg/mL Attestation Statement - Attestation Attestation: I, Cliff Powell MD, personally evaluated this patient and discussed their management with the resident physician. I reviewed the resident's note and agree with the documented findings, medical decision making, and plan of care. Patient is a 76-year-old male who was referred here from the [facility] for seizure. Patient was apparently an inpatient under psychiatric unit. Had a witnessed seizure lasting about 2 minutes. He has a history of seizures and takes Dilantin. Patient states he has not been taking his medications recently because he is "on strike". He denies any recent acute illness otherwise. No fever. No chest pain or shortness of breath. Patient received Ativan prior to arrival here. On examination patient is a well-developed well-nourished elderly male in no acute distress. He is alert and answers questions appropriately. There is no cyanosis or diaphoresis. Chest is nontender to palpation. Breath sounds are clear and equal bilaterally. Heart regular rate and rhythm. Abdomen soft and nontender with normal bowel sounds. Labs reviewed. Dilantin level 0.9. Patient was loaded with 1 g of fosphenytoin IV. [facility] regarding return to the [facility] and they report they did not feel comfortable with the patient back. Would like him admitted here. Hospitalist, Dr. Monge, was consulted and accepted admission of the patient.
[2017-02-07] MEDS ORDERED: Fosphenytoin 1,000 MG in D5% in Water 50 ML IVPB ONE (20:27)
[2017-02-07] MEDS: *HR* LORazepam 2 MG/ML VIAL IVP ONE ×2 (20:32→21:01)
[2017-02-07 21:55] LABS: Basophils % 0.3 %; Eosinophils # 0.4 K/mcL (0.0-0.6); Eosinophils % 5.8 %; Hematocrit 29.5 % (37.5-50.1); Hemoglobin 9.3 g/dL (12.9-16.9); Immature Granulocytes % 0.3 % (0-4); Lymphocytes # 0.9 K/mcL (0.6-4.6); Lymphocytes % 15.4 %; Mean Corpuscular HGB Conc 31.5 g/dL (31.6-35.5); Mean Corpuscular Hemoglobin 29.5 pg (28.0-33.3); Mean Corpuscular Volume 93.7 fL (83.0-100.0); Mean Platelet Volume 10.4 fL (9.4-12.4); Monocytes # 0.5 K/mcL (0.0-1.3); Monocytes % 8.1 %; Neutrophils # 4.2 K/mcL (1.6-8.9); Platelet Count 112 K/mcL (140-400); Red Blood Count 3.15 M/mcL (4.19-5.50); Red Cell Distribution Width 14.4 % (11.5-14.5); Segmented Neutrophils % 70.1 %
[2017-02-07 22:06] LABS: Albumin/Globulin Ratio 0.8 (1.1-2.2); Bilirubin,Total 0.3 mg/dL (0.2-1.2); Calcium 9.9 mg/dL (8.6-10.8); Potassium 4.7 mEq/L (3.5-4.5)
[2017-02-07] MEDS ORDERED: Ondansetron 4 MG/2 ML VIAL IVP PRN (23:42)
[2017-02-07] MEDS ORDERED: Naloxone 0.4 MG/ML INJ IVP PRN (23:42)
[2017-02-07] MEDS ORDERED: Acetaminophen 325 MG TABLET PO PRN (23:42)
--- NOTE | 2017-02-07 23:42 | Internal Med History&Physical ---
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 (2) CKD (chronic kidney disease) stage 4, GFR 15-29 ml/min Current visit: No Status: Chronic CKD stage IV - creatinine and GFR likely at baseline Patient has a left arm AV fistula - not on hemodialysis as yet Nephrology consult (3) Congestive heart failure (CHF) Current visit: No Status: Chronic CHF systolic dysfunction with LVEF 45% and diastolic dysfunction - not in exacerbation, status post AICD Continue home meds, strict I's and O's, fluid restriction, daily weight Qualifiers: Congestive heart failure type: unspecified congestive heart failure type Congestive heart failure chronicity: chronic Qualified Code(s): I50.9 - Heart failure, unspecified (4) Hypertension Current visit: No Status: Chronic Essential hypertension, controlled: Continue home meds, monitor Qualifiers: Hypertension type: essential hypertension Qualified Code(s): I10 - Essential (primary) hypertension (5) Depression Current visit: Yes Status: Chronic Chronic major depression - continue home medications Was recently in the psych unit at the [facility], and was going to be released Psychiatry consult Qualifiers: Depression Type: major depressive disorder Active/Remission status: currently active Major depression episode severity: moderate Qualified Code( s): F33.1 - Major depressive disorder, recurrent, moderate (6) DVT prophylaxis Current visit: No Status: Acute Continue heparin subcutaneous Internal Medicine - H&P: HPI Chief complaint: Seizure, altered mental status Admitted From: Emergency Dept Plans for Post Hospital Care: Home History of present illness: Mr. Castro is a 76 year old male with past medical history of coronary artery disease, CVA, CHF, hyperlipidemia, hypertension, CKD stage 4-5, seizure disorder , depression and BPH/chronic urinary retention. He presents to the ED from the [facility] for seizure. On examination patient is drowsy and seems to be postictal. He is easily arousable. He is oriented to person only. Not in any distress. No family members present at the time of examination. Unable to obtain any history from patient. All history is obtained from ED records and medical records from the [facility]. Patient was apparently discharged from the psych unit at the [facility] and turned over to family. He apparently became increasingly confused and agitated earlier in the day. He was examined by the nurse initially. He was sent to the ED at the [facility] for possible seizure. Patient was then transferred here for seizures. There is no neurology coverage at the [facility] so patient will be admitted here. Patient apparently had a tonic-clonic seizure lasting about 15-20 seconds in the ED here. He was given 2 mg of IV Ativan and also 1 g of fosphenytoin. The Dilantin level is low at 0.9. Patient was initially awake and alert and oriented to place and person ED but he seems to be increasing postictal and drowsy at this time. Patient is protecting his airway. Patient has apparently been refusing his antiepileptic medication over the past 3 days. Patient does have a left arm AV fistula but is not on hemodialysis as yet. He is being followed closely by nephrology. Patient is being admitted for seizures. We will continue all his home medications. He will be on seizure precautions. He has been given 1 g fosphenytoin in the ED. EEG is pending. We will consult neurology and psychiatry. Nephrology consult in view of CKD stage 4. No family members at bedside. CODE STATUS as per [facility] records patient is a DO NOT RESUSCITATE and DO NOT INTUBATE comfort care arrest. Past Med Surg Social Fam HX - Past Medical History Medical history: coronary artery disease, CVA, hyperlipidemia, hypertension, renal disease, seizures Psychiatric history: no psych history - Past Surgical History Surgical History: non-contributory - Social History Smoking Status: Never smoker Smokeless Tobacco Status: No Alcohol use: none Drug use: none Internal Medicine - H&P: Meds Atorvastatin [Lipitor] 40 mg PO HS 08/14/16 [History] Carvedilol [Coreg] 25 mg PO BID 08/14/16 [History] Cholecalciferol (D-3) [Vitamin D] 2,000 unit PO DAILY 08/14/16 [History] Cyanocobalamin (Vitamin B-12) [Vitamin B-12] 500 mcg PO DAILY 08/14/16 [History] Dextran 70/Hypromellose [Natural Balance Tears Eye Drop] 1 drop OP QID PRN 08/14 [History] Ferrous Gluconate 324 mg PO DAILY 08/14/16 [History] Finasteride [Proscar] 5 mg PO DAILY 08/14/16 [History] Hydralazine HCl 100 mg PO TID 08/14/16 [History] Insulin ASPART [NovoLOG] 0 unit SQ TID MDD PER SLIDING SCALE 08/14/16 [History] Isosorbide MONOnitrate [Isosorbide Mononitrate ER] 30 mg PO DAILY 08/14/16 [ History] Melatonin 6 mg PO HS PRN 08/14/16 [History] NIFEdipine [Afeditab Cr] 90 mg PO DAILY 08/14/16 [History] Nitroglycerin [Nitrostat] 0.4 mg SL Q5M PRN 08/14/16 [History] Pantoprazole Sodium [Protonix] 40 mg PO DAILY 08/14/16 [History] Tamsulosin [Flomax] 0.8 mg PO DAILY 08/14/16 [History] Phenytoin ER [Dilantin ER] 100 mg PO QID #0 08/18/16 [Rx] Aspirin [Lo-Dose Aspirin EC] 81 mg PO DAILY 01/07/17 [History] Calcium Acetate [Phos-LO] 667 mg PO TIDWM 01/07/17 [History] CloNIDine Patch [Catapres-TTS] 0.2 mg TD SA 01/07/17 [History] Furosemide [Lasix] 40 mg PO DAILY 01/07/17 [History] Ipratropium/Albuterol Neb [Duoneb] 3 ml IH Q4HR PRN 01/07/17 [History] Polyethylene Glycol 3350 [Purelax] 17 gm PO DAILY PRN 01/07/17 [History] Quetiapine Fumarate [SEROquel] 25 mg PO HS 01/07/17 [History] Sennosides [Senna] 8.6 mg PO BID PRN 01/07/17 [History] Sertraline [Zoloft] 25 mg PO DAILY 01/07/17 [History] Sodium Bicarbonate 1,300 mg PO BID 01/07/17 [History] Sodium Polystyrene Sulfonate [Kayexalate] 15 gm PO MOTUWETHFR 01/07/17 [History] Tramadol HCl [Ultram] 50 mg PO BID PRN 01/07/17 [History] Allergies No Known Allergies Allergy (Verified 08/13/16 23:14) ROS unobtainable: due to mental status All Systems PM: A 10-system review of systems was performed and is negative for pertinent findings except as documented above in the HPI. Review of systems: Patient is drowsy but easily arousable, seems postictal. All history obtained from medical records - Constitutional Vitals: Temp Pulse Resp BP Pulse Ox 97.7 F 60 0 0/0 98 02/07/17 19:14 02/07/17 23:00 02/07/17 23:36 02/07/17 23:36 02/07/17 23:00 General appearance: Present: A&O X 1, no acute distress. Absent: answers questions appropriately Exam: Ill-appearing, patient seems postictal, confused. Drowsy but easily arousable. Follows simple verbal commands, does not verbalize well - Head Head exam: Present: atraumatic - Eye Eye exam: Absent: scleral icterus - ENT ENT exam: Present: mucous membranes dry - Neck Neck exam general surgery: Present: supple - Respiratory Respiratory exam: Present: CTAB. Absent: accessory muscle use, rales, rhonchi, wheezes, tachypnea Additional comments: AICD in place - Cardiovascular Cardiovascular exam: Present: RRR, +S1, +S2 - GI/Abdominal GI/Abdominal exam: Present: soft, no peritoneal signs. Absent: firm, guarding, rigid, tenderness - Extremities Exam Extremities exam: Present: radial pulses palpable and symetrical. Absent: cyanotic, pedal edema, tenderness - Neurological Exam Neurological exam: Present: altered. Absent: no focal deficits, facial droop Additional comments: patient seems drowsy, but easily arousable, oriented to person. Follows simple commands, seems to be postictal and does not verbalize well, no obvious focal deficits Internal Med - H&P Results - Labs CBC & Chem 7: 02/07/17 19:52 02/07/17 19:52
[2017-02-07] MEDS ORDERED: CloNIDine Patch 0.2 MG PATCH (WEEKLY) TD SCH (23:45)
[2017-02-07] MEDS ORDERED: Nitroglycerin 0.4 MG TAB.SUBL SL PRN (23:47)
[2017-02-07] MEDS ORDERED: traMADol 50 MG TABLET PO PRN (23:47)
[2017-02-07] MEDS ORDERED: Artificial Tears SOLN 15 ML BOTTLE OP PRN (23:47)
[2017-02-07] MEDS ORDERED: Sennosides 8.6 MG TABLET PO PRN (23:47)
[2017-02-07] MEDS ORDERED: Ipratropium/Albuterol Neb 3 ML IH PRN (23:47)
[2017-02-08] LABS: INR 1.2; Prothrombin Time 12.7 Seconds (9.4-12.1)
[2017-02-08] MEDS ORDERED: Dextrose Gel 15 GM PO PRN ×2 (00:51)
[2017-02-08] MEDS ORDERED: *HR* Dextrose 50 % in Water (Syg) 50 ML SYRINGE IVP PRN (00:51)
[2017-02-08] MEDS ORDERED: D5% in Water 1,000 ML IVC PRN (00:51)
[2017-02-08 01:24] LABS: Basophils % 0.3 %; Eosinophils # 0.3 K/mcL (0.0-0.6); Eosinophils % 5.7 %; Hemoglobin 9.2 g/dL (12.9-16.9); Immature Granulocytes % 0.3 % (0-4); Lymphocytes # 1.1 K/mcL (0.6-4.6); Mean Corpuscular HGB Conc 31.7 g/dL (31.6-35.5); Mean Corpuscular Hemoglobin 29.9 pg (28.0-33.3); Mean Corpuscular Volume 94.2 fL (83.0-100.0); Mean Platelet Volume 10.1 fL (9.4-12.4); Monocytes # 0.5 K/mcL (0.0-1.3); Monocytes % 8.2 %; Neutrophils # 3.9 K/mcL (1.6-8.9); Platelet Count 105 K/mcL (140-400); Red Blood Count 3.08 M/mcL (4.19-5.50); Red Cell Distribution Width 14.4 % (11.5-14.5); Segmented Neutrophils % 67.5 %
[2017-02-08] MEDS ORDERED: *HR* LORazepam 2 MG/ML VIAL IVP PRN (01:30)
[2017-02-08 01:35] LABS: Albumin 2.8 g/dL (3.5-5.0); Albumin/Globulin Ratio 0.7 (1.1-2.2); Bilirubin,Total 0.4 mg/dL (0.2-1.2); Calcium 9.6 mg/dL (8.6-10.8); Globulin 3.8 g/dL (2.4-3.5); Potassium 4.7 mEq/L (3.5-4.5); Total Protein 6.6 g/dL (6.0-8.3)
[2017-02-08 01:39] LABS: Hemoglobin A1C 8.2 %
[2017-02-08 03:09] LABS: Bilirubin,Urine Negative (Negative); Blood,Urine Trace (Negative); Clarity,Urine Cloudy (Clear); Color,Urine Yellow (Yellow); Glucose,Urine (UA) 100 mg/dL (Normal); Ketones,Urine Negative (Negative); Leukocyte Esterase,Urine Small (Negative); Nitrite,Urine Negative (Negative); Protein,Urine >=300 mg/dL (Neg-Trace); Specific Gravity,Urine 1.016 (1.010-1.025); Urobilinogen,Urine Normal (Normal)
[2017-02-08 03:11] LABS: Bacteria,Urine Few per hpf (None-Few); Hyaline Casts,Urine None Seen per lpf (None-Few); Squamous Epithelial Cell,Urine None Seen per lpf (None-Few); WBC,Urine 50-100 per hpf (0-3)
[2017-02-08 03:15] LABS: Amphetamine Screen,Urine Negative ng/mL (Cutoff=1000); Barbiturate Screen,Urine Negative ng/mL (Cutoff=200); Benzodiazepines Screen,Urine Negative ng/mL (Cutoff=200); Cannabinoid Screen,Urine Negative ng/mL (Cutoff = 50); Cocaine Screen,Urine Negative ng/mL (Cutoff= 300); Opiate Screen,Urine Negative ng/mL (Cutoff=300); Phencyclidine Screen,Urine Negative ng/mL (Cutoff=25)
[2017-02-08 03:20] LABS: Amorphous Sediment,Urine Few (Few)
[2017-02-08 03:21] LABS: Yeast,Urine Few per hpf (None Seen)
[2017-02-08] MEDS: *HR* Heparin 5,000 UNIT/ML VIAL SQ SCH ×2 (05:34→17:54)
[2017-02-08] MEDS: Insulin LISPRO 300 UNITS/3 ML VIAL SQ SCH ×4 (08:33→22:53)
[2017-02-08] MEDS: Furosemide 20 MG TABLET PO SCH (08:35)
[2017-02-08] MEDS: Aspirin Enteric Coated 81 MG Tablet PO SCH (08:36)
[2017-02-08] MEDS: hydrALAZINE 25 MG TABLET PO SCH ×3 (08:37→21:19)
[2017-02-08] MEDS: Isosorbide MONOnitrate (24 HR) 30 MG TAB.ER.24H PO SCH (08:39)
[2017-02-08] MEDS: NIFEdipine XL (24 HR) 30 MG TAB.ER.24 PO SCH (08:39)
[2017-02-08] MEDS: Finasteride 5 MG TABLET PO SCH (08:40)
[2017-02-08] MEDS: Calcium Acetate 667 MG CAPSULE PO SCH ×3 (09:00→17:55)
[2017-02-08] MEDS ORDERED: Famotidine 20 MG TABLET PO SCH (09:00)
--- NOTE | 2017-02-08 09:21 | Internal Med Progress Note ---
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 The nursing staff expressed the possibility of a pseudoseizure. She describes it as the patient leaning back with his head and making noises, that he is completely alert and oriented afterwards with no memory loss. He has received his antiseizure medications. -Neurology consult, EEG pending (2) Depression Current Visit: Yes Status: Chronic Assessment and plan: Chronic major depression - continue home medications -Was recently in the [facility] unit at the [facility], and was going to be released. -Patient admits that he attempted suicide before being placed in isolation. -This was when he went on strike with his medications. -He admits to feeling somewhat depressed as morning. Qualifiers: Depression Type: major depressive disorder Active/Remission status: currently active Major depression episode severity: moderate Qualified Code( s): F33.1 - Major depressive disorder, recurrent, moderate (3) CKD (chronic kidney disease) stage 4, GFR 15-29 ml/min Current Visit: No Status: Chronic Assessment and plan: CKD stage IV - creatinine and GFR likely at baseline Patient has a left arm AV fistula - not on hemodialysis as yet Nephrology consult (4) Congestive heart failure (CHF) Current Visit: No Status: Chronic Assessment and plan: CHF systolic dysfunction with LVEF 45% and diastolic dysfunction - not in exacerbation, status post AICD Continue home meds, strict I's and O's, fluid restriction, daily weight Qualifiers: Congestive heart failure type: unspecified congestive heart failure type Congestive heart failure chronicity: chronic Qualified Code(s): I50.9 - Heart failure, unspecified (5) Scrotal swelling Current Visit: Yes Status: Acute Assessment and plan: Patient states that he has had a swollen scrotum for a couple of years. -He states that at times it is painful. -He also states that it has been infected several times. - Subjective Interval history: Patient seen and examined at bedside this morning. Upon entry into the room, patient was completely covered by the sheets, and stated that he was "afraid that he was still in the green room." Patient admits that during his stay in the [facility], he went on strike from taking his medications after he was placed in isolation after a suicide attempt. Patient notes that he was feeling depressed about seeing his , and that the [facility] would not let him leave. Patient escaped from the hospital and was later caught. Patient then escaped second time, and cut himself with a razor blade. He was then put in isolation, which led the patient to stop taking his antiepileptic medications. This morning, patient states that he is still feeling somewhat depressed. He also is complaining of some swelling in his scrotum that he has had for a couple years. Patient is alert and oriented only to person. He currently denies having headache, weakness, or memory problems. Patient has not refused his antiseizure medications since admission. - Constitutional Vitals: Temp Pulse Resp BP Pulse Ox 97.5 F L 64 16 167/73 100 02/08/17 08:26 02/08/17 08:26 02/08/17 08:26 02/08/17 08:26 02/08/17 08:26 General appearance: Present: A&O X 1. Absent: answers questions appropriately - Head Head exam: Present: atraumatic, normocephalic - Neck Neck exam general surgery: Present: supple, trachea midline. Absent: lymphadenopathy - Respiratory Respiratory exam: Present: CTAB. Absent: accessory muscle use, rales, rhonchi, wheezes - Cardiovascular Cardiovascular exam: Present: RRR, +S1, +S2. Absent: diastolic murmur, gallop, rubs, systolic murmur - GI/Abdominal GI/Abdominal exam: Present: normal bowel sounds, soft, no peritoneal signs. Absent: distended, tenderness - Psychiatric Psychiatric exam: Present: depressed Additional comments: Patient admits that he is feeling somewhat depressed because he is not able to see his . - Skin Skin exam: Present: dry, intact Internal Medicine: Result - Labs CBC & Chem 7: 02/08/17 01:08 02/08/17 01:08 Labs: Urine 02/08/17 Range/Units 02:56 Urine Color Yellow (Yellow) Urine Clarity Cloudy A (Clear) Urine pH 7.0 (5.0-8.0) pH Units Ur Specific [place] 1.016 (1.010-1.025) Urine Protein >=300 H (Neg-Trace) mg/dL Urine Glucose (UA) 100 H (Normal) mg/dL - ABG Interpretation ABG results: PT/INR, D-dimer PT 12.7 Seconds (9.4-12.1) H 02/07/17 19:52 Consult Discharge Plan - Plan [facility]errals: [facility]Primary Care Provider[facility] - <Jeet Zeng H - Last Filed: 02/08/17 10:47> Date of Encounter: 02/08/17 - Constitutional Vitals: Temp Pulse Resp BP Pulse Ox 97.5 F L 64 16 167/73 100 02/08/17 08:26 02/08/17 08:26 02/08/17 08:26 02/08/17 08:26 02/08/17 08:26 Internal Medicine: Result - Labs CBC & Chem 7: 02/08/17 01:08 02/08/17 01:08 Labs: Urine 02/08/17 Range/Units 02:56 Urine Color Yellow (Yellow) Urine Clarity Cloudy A (Clear) Urine pH 7.0 (5.0-8.0) pH Units Ur Specific [place] 1.016 (1.010-1.025) Urine Protein >=300 H (Neg-Trace) mg/dL Urine Glucose (UA) 100 H (Normal) mg/dL - ABG Interpretation ABG results: PT/INR, D-dimer PT 12.7 Seconds (9.4-12.1) H 02/07/17 19:52 - Attending Attestation History of seizures, noncompliance EEG in am per Neurology, continue phenytoin fall and seizure precautions right Hydrocele, order testicular ultrasound I examined this patient and my medical decision-making was reviewed with the Resident Physician. I agree with the documented findings, disposition and treatment plan as described except to the extent set forth below.
--- NOTE | 2017-02-08 10:35 | Neurology - Consult Note ---
Date of Encounter: 02/08/17 Time of Encounter: 10:29 Assessment and Plan (1) Seizure Current Visit: Yes Status: Acute 76-year old man with prior history of seizures, admitted with seizures, following his refusal to take medication in the last 4 days. He was on dilantin before that, with good control of seizures. Agree with Cerebyx load. Check dilantin level for completness. Please continue dilantin at 300 mg qhs. EEG tomorrow (or may be done as outpatient as well, for completeness). Will need follow-up with Dr No/Reanna upon discharge. PT/OT for his weakness. Psychiatry for depression treatment. May need CBT. Seizure precautions, as you are doing. Other chronic issues per hospitalist. Call with questions. History of Present Illness Chief complaint: seizure HPI: Mr. Castro is a 76 year old male, [place] paitent ([place]), with prior history of seizures (since childhood, not very well described, but has been on dilantin for a long time), multiple psychiatric issues, prior history of strokes, recent multiple social stressors who has been admitted with seizures. Apparently, [facility], at which time, his had to have some stents placed in her heart. He was not allowed to see her and so he eloped from the facility and was seen in the highway in his power wheelchair. He was apparently then placed in a lock down unit since he said he would hurt himself. So he went on a "hunger strike", refusing medications and food - he was found to have seizures at the outside facility and was transferred here. His dilantin level was 0.9. He was given cerebyx 1g, here at ER and admitted to the floor. Since this morning, he apparently had 3 episodes (all episodes, eyes were closed), no post-ictal phase, etc - which was witnessed by the nurse, with descriptions of grunting, stiffening for few seconds, and then head shaking and pulling the bed sheet cover over his head. No convulsions were noted. States that he is doing fine now, and he needs somebody to talk to and that he needs PT and OT. No fevers/chills/shortness of breath/infections. He feels depressed. Past Med Surg Social Fam HX - Past Medical History Medical history: coronary artery disease, CVA, hyperlipidemia, hypertension, renal disease Psychiatric history: no psych history - Past Surgical History Surgical History: non-contributory, pacemaker/AICD, pacemaker - Social History Smoking Status: Never smoker Smokeless Tobacco Status: No Alcohol use: none Drug use: none Medications and Allergies Atorvastatin [Lipitor] 40 mg PO HS 08/14/16 [History] Carvedilol [Coreg] 25 mg PO BID 08/14/16 [History] Cholecalciferol (D-3) [Vitamin D] 2,000 unit PO DAILY 08/14/16 [History] Cyanocobalamin (Vitamin B-12) [Vitamin B-12] 500 mcg PO DAILY 08/14/16 [History] Dextran 70/Hypromellose [Natural Balance Tears Eye Drop] 1 drop OP QID PRN 08/14 [History] Ferrous Gluconate 324 mg PO DAILY 08/14/16 [History] Finasteride [Proscar] 5 mg PO DAILY 08/14/16 [History] Hydralazine HCl 100 mg PO TID 08/14/16 [History] Insulin ASPART [NovoLOG] 0 unit SQ TID MDD PER SLIDING SCALE 08/14/16 [History] Isosorbide MONOnitrate [Isosorbide Mononitrate ER] 30 mg PO DAILY 08/14/16 [ History] Melatonin 6 mg PO HS PRN 08/14/16 [History] NIFEdipine [Afeditab Cr] 90 mg PO DAILY 08/14/16 [History] Nitroglycerin [Nitrostat] 0.4 mg SL Q5M PRN 08/14/16 [History] Pantoprazole Sodium [Protonix] 40 mg PO DAILY 08/14/16 [History] Tamsulosin [Flomax] 0.8 mg PO DAILY 08/14/16 [History] Phenytoin ER [Dilantin ER] 100 mg PO QID #0 08/18/16 [Rx] Aspirin [Lo-Dose Aspirin EC] 81 mg PO DAILY 01/07/17 [History] Calcium Acetate [Phos-LO] 667 mg PO TIDWM 01/07/17 [History] CloNIDine Patch [Catapres-TTS] 0.2 mg TD SA 01/07/17 [History] Furosemide [Lasix] 40 mg PO DAILY 01/07/17 [History] Ipratropium/Albuterol Neb [Duoneb] 3 ml IH Q4HR PRN 01/07/17 [History] Polyethylene Glycol 3350 [Purelax] 17 gm PO DAILY PRN 01/07/17 [History] Quetiapine Fumarate [SEROquel] 25 mg PO HS 01/07/17 [History] Sennosides [Senna] 8.6 mg PO BID PRN 01/07/17 [History] Sertraline [Zoloft] 25 mg PO DAILY 01/07/17 [History] Sodium Bicarbonate 1,300 mg PO BID 01/07/17 [History] Sodium Polystyrene Sulfonate [Kayexalate] 15 gm PO MOTUWETHFR 01/07/17 [History] Tramadol HCl [Ultram] 50 mg PO BID PRN 01/07/17 [History] Allergies No Known Allergies Allergy (Verified 08/13/16 23:14) All Systems: A 10-system review of systems was performed and is negative for pertinent findings except as documented above in the HPI. - Constitutional Constitutional ROS IM: as per HPI Physical Examination - Vital Signs Vital Signs: Initial Vital Signs Temp Pulse Resp BP Pulse Ox 97.7 F 66 20 189/82 100 02/07/17 19:14 02/07/17 19:14 02/07/17 19:14 02/07/17 19:14 02/07/17 19:14 Vital Signs - 24 hr 02/07/17 19:14 02/07/17 19:48 02/07/17 20:00 Temperature 97.7 F Pulse Rate 66 66 Respiratory Rate 20 Blood Pressure 189/82 189/82 O2 Sat by Pulse Oximetry 100 100 02/07/17 21:00 02/07/17 22:00 02/07/17 23:00 Temperature Pulse Rate 66 57 60 Respiratory Rate 20 20 Blood Pressure 179/76 157/103 169/74 O2 Sat by Pulse Oximetry 100 100 98 02/07/17 23:36 02/08/17 00:14 02/08/17 04:16 Temperature 97.8 F 98.2 F Pulse Rate 62 60 Respiratory Rate 0 16 16 Blood Pressure 0/0 138/64 99/62 O2 Sat by Pulse Oximetry 97 100 02/08/17 04:28 02/08/17 08:26 Temperature 97.5 F L Pulse Rate 64 Respiratory Rate 16 Blood Pressure 167/73 O2 Sat by Pulse Oximetry 100 100 - Exam Exam: man of stated age, thin, with a depressed affect. - Constitutional General appearance: comfortable - Neurologic Sensorimotor examination: other (has monoparesis of right lower extremity; severe sensory loss in bilateral lower extremities and distally in upper extremities) Detailed motor examination: other (mild bilateral ptosis noted, left > right) Motor examination - right side: 1/5: tibialis Anterior, quadriceps, toe extension (EHL), plantarflexion, 2/5: hip flexors, 5/5: deltoids, biceps, triceps, wrist flexion, wrist extension, order worker (effort-dependent exam) Motor examination - left side: 4/5: quadriceps, tibialis Anterior, toe extension (EHL), plantarflexion (effort-dependent exam), 5/5: deltoids, biceps, triceps, wrist flexion, wrist extension, hip flexors, order worker Detailed sensory examination: other (decreased in legs and the right arm) Reflex and gait examination: other (areflexia except upper extremities, where it is 1+) Reflexes: Biceps: 1+, Triceps: 1+, Brachioradialis: 1+, Patella: 0, Achilles: 0 Mental Status Examination: awake (slow to talk, with mannerisms), alert, oriented to person, oriented to place, oriented to time, follows commands appropriately, answers questions appropriately, no agnosia, no aphasia, no aproxia Cranial nerve examination: PERRL (mild bilateral ptosis, left > right), EOMI, visual epps intact, corneal reflexes brisk symmetrically, sensory to face intact, mastication intact, no facial asymmetry is present, no dysarthria, hearing is intact symmetrically, soft palate elevates bilaterally upon phonation , gag reflex intact, flexes SCM and trapezius muscles symmetrically with full power, tongue protrudes midline, no atrophy or facial fasiculations present Cerebellar examination: no dysmetria (but slow), performs finger to nose and heel to rodríguez symmetrically without ataxia, no gait ataxia, no truncal ataxia, no difficulty with rapid alternating movements Results - Laboratory Findings CBC and BMP: 02/08/17 01:08 02/08/17 01:08 Abnormal lab findings: Abnormal lab results RBC 3.08 M/mcL (4.19-5.50) L 02/08/17 01:08 Hgb 9.2 g/dL (12.9-16.9) L 02/08/17 01:08 Hct 29.0 % (37.5-50.1) L 02/08/17 01:08 Plt Count 105 K/mcL (140-400) L 02/08/17 01:08 PT 12.7 Seconds (9.4-12.1) H 02/07/17 19:52 Potassium 4.7 mEq/L (3.5-4.5) H 02/08/17 01:08 BUN 57 mg/dL (8-26) H 02/08/17 01:08 Creatinine 3.73 mg/dL (0.72-1.25) H 02/08/17 01:08 Est GFR ( Amer) 19 (> 60) L 02/08/17 01:08 Est GFR (Non-Af Amer) 16 (> 60) L 02/08/17 01:08 Glucose 224 mg/dL (70-99) H 02/08/17 01:08 POC Glucose 296 (58-89) H 02/08/17 08:23 Hemoglobin A1c 8.2 % (-5.6) H 02/08/17 01:08 Calculated Osmolality 311 (280-300) H 02/08/17 01:08 Alkaline Phosphatase 138 Units/L (38-126) H 02/08/17 01:08 Albumin 2.8 g/dL (3.5-5.0) L 02/08/17 01:08 Globulin 3.8 g/dL (2.4-3.5) H 02/08/17 01:08 Albumin/Globulin Ratio 0.7 (1.1-2.2) L 02/08/17 01:08 Urine Clarity Cloudy (Clear) A 02/08/17 02:56 Urine Protein >=300 mg/dL (Neg-Trace) H 02/08/17 02:56 Urine Glucose (UA) 100 mg/dL (Normal) H 02/08/17 02:56 Urine Blood Trace (Negative) H 02/08/17 02:56 Ur Leukocyte Esterase Small (Negative) H 02/08/17 02:56 Urine Microscopic RBC 5-15 per hpf (0-3) H 02/08/17 02:56 Urine Microscopic WBC 50-100 per hpf (0-3) H 02/08/17 02:56 Urine Yeast Few per hpf (None Seen) H 02/08/17 02:56 Phenytoin 0.9 mcg/mL (10-20) L 02/07/17 19:52 Laboratory Results WBC 5.8 K/mcL (4.3-11.1) 02/08/17 01:08 RBC 3.08 M/mcL (4.19-5.50) L 02/08/17 01:08 Hgb 9.2 g/dL (12.9-16.9) L 02/08/17 01:08 Hct 29.0 % (37.5-50.1) L 02/08/17 01:08 MCV 94.2 fL (83.0-100.0) 02/08/17 01:08 MCH 29.9 pg (28.0-33.3) 02/08/17 01:08 MCHC 31.7 g/dL (31.6-35.5) 02/08/17 01:08 RDW 14.4 % (11.5-14.5) 02/08/17 01:08 Plt Count 105 K/mcL (140-400) L 02/08/17 01:08 MPV 10.1 fL (9.4-12.4) 02/08/17 01:08 Immature Gran % 0.3 % (0-4) 02/08/17 01:08 Seg Neutrophils % 67.5 % 02/08/17 01:08 Lymphocytes % 18.0 % 02/08/17 01:08 Monocytes % 8.2 % 02/08/17 01:08 Eosinophils % 5.7 % 02/08/17 01:08 Basophils % 0.3 % 02/08/17 01:08 Neutrophils # 3.9 K/mcL (1.6-8.9) 02/08/17 01:08 Lymphocytes # 1.1 K/mcL (0.6-4.6) 02/08/17 01:08 Monocytes # 0.5 K/mcL (0.0-1.3) 02/08/17 01:08 Eosinophils # 0.3 K/mcL (0.0-0.6) 02/08/17 01:08 Basophils # 0.0 K/mcL (0.0-0.2) 02/08/17 01:08 PT 12.7 Seconds (9.4-12.1) H 02/07/17 19:52 INR 1.2 02/07/17 19:52 Sodium 139 mEq/L (136-145) 02/08/17 01:08 Potassium 4.7 mEq/L (3.5-4.5) H 02/08/17 01:08 Chloride 105 mEq/L (98-109) 02/08/17 01:08 Carbon Dioxide 28 mEq/L (19-29) 02/08/17 01:08 BUN 57 mg/dL (8-26) H 02/08/17 01:08 Creatinine 3.73 mg/dL (0.72-1.25) H 02/08/17 01:08 Est GFR ( Amer) 19 (> 60) L 02/08/17 01:08 Est GFR (Non-Af Amer) 16 (> 60) L 02/08/17 01:08 BUN/Creatinine Ratio 15 (6-26) 02/08/17 01:08 Glucose 224 mg/dL (70-99) H 02/08/17 01:08 POC Glucose 296 (58-89) H 02/08/17 08:23 Est Mean Plasma Glucose 189 mg/dl 02/08/17 01:08 Hemoglobin A1c 8.2 % (-5.6) H 02/08/17 01:08 Calculated Osmolality 311 (280-300) H 02/08/17 01:08 Calcium 9.6 mg/dL (8.6-10.8) 02/08/17 01:08 Magnesium 2.3 mg/dL (1.6-2.6) 02/07/17 19:52 Total Bilirubin 0.4 mg/dL (0.2-1.2) 02/08/17 01:08 AST 22 Units/L (5-34) 02/08/17 01:08 ALT 21 Units/L (0-55) 02/08/17 01:08 Alkaline Phosphatase 138 Units/L (38-126) H 02/08/17 01:08 Serum Total Protein 6.6 g/dL (6.0-8.3) 02/08/17 01:08 Albumin 2.8 g/dL (3.5-5.0) L 02/08/17 01:08 Globulin 3.8 g/dL (2.4-3.5) H 02/08/17 01:08 Albumin/Globulin Ratio 0.7 (1.1-2.2) L 02/08/17 01:08 Urine Color Yellow (Yellow) 02/08/17 02:56 Urine Clarity Cloudy (Clear) A 02/08/17 02:56 Urine pH 7.0 pH Units (5.0-8.0) 02/08/17 02:56 Ur Specific [place] 1.016 (1.010-1.025) 02/08/17 02:56 Urine Protein >=300 mg/dL (Neg-Trace) H 02/08/17 02:56 Urine Glucose (UA) 100 mg/dL (Normal) H 02/08/17 02:56 Urine Ketones Negative mg/dL (Negative) 02/08/17 02:56 Urine Blood Trace (Negative) H 02/08/17 02:56 Urine Nitrite Negative (Negative) 02/08/17 02:56 Urine Bilirubin Negative (Negative) 02/08/17 02:56 Urine Urobilinogen Normal mg/dL (Normal) 02/08/17 02:56 Ur Leukocyte Esterase Small (Negative) H 02/08/17 02:56 Urine Microscopic RBC 5-15 per hpf (0-3) H 02/08/17 02:56 Urine Microscopic WBC 50-100 per hpf (0-3) H 02/08/17 02:56 Ur Squamous Epith Cells None Seen per lpf (None-Few) 02/08/17 02:56 Amorphous Sediment Few (Few) 02/08/17 02:56 Urine Bacteria Few per hpf (None-Few) 02/08/17 02:56 Hyaline Casts None Seen per lpf (None-Few) 02/08/17 02:56 Urine Yeast Few per hpf (None Seen) H 02/08/17 02:56 Urine Opiates Screen Negative ng/mL (Esnxhh=805) 02/08/17 02:56 Ur Barbiturates Screen Negative ng/mL (Wgftex=192) 02/08/17 02:56 Phenytoin 5.4 mcg/mL (10-20) L 02/08/17 01:08 Ur Phencyclidine Scrn Negative ng/mL (Cutoff=25) 02/08/17 02:56 Ur Amphetamines Screen Negative ng/mL (Vbnpgr=4247) 02/08/17 02:56 U Benzodiazepines Scrn Negative ng/mL (Sktcma=786) 02/08/17 02:56 Urine Cocaine Screen Negative ng/mL (Cutoff= 300) 02/08/17 02:56 U Marijuana (THC) Screen Negative ng/mL (Cutoff = 50) 02/08/17 02:56 Impressions Chest X-Ray 02/08/17 00:00 IMPRESSION: No acute cardiopulmonary disease. D/ / 02/08/2017 07:04:05 Javier Mcallister MD / [facility] Interpreting Provider: Javier Mcallister MD Consult Discharge Plan - Plan [facility]errals: [facility] [Primary Care Provider] -
[2017-02-08 10:38] LABS: Phenytoin (Dilantin) 5.4 mcg/mL (10-20)
[2017-02-08] MEDS: Cholecalciferol (D-3) 1,000 UNIT TABLET PO SCH (12:10)
[2017-02-08] MEDS: Cyanocobalamin (B-12) 1,000 MCG TABLET PO SCH (12:10)
--- NOTE | 2017-02-08 14:44 | Nephrology Consult Note ---
Date of Encounter: 02/08/17 Time of Encounter: 12:00 Assessment and Plan (1) CKD (chronic kidney disease) stage 4, GFR 15-29 ml/min Current Visit: No Status: Chronic Renal fxn about baseline. no acute indication for [employer] at this time avoid nephrotoxins if possible (2) Anemia Current Visit: No Status: Acute Hgb noted low with low iron saturation noted as of last labs outpatient, will replete Qualifiers: Anemia type: iron deficiency (3) Hyperkalemia, diminished renal excretion Current Visit: No Status: Resolved Potassium noted slightly elevated at 4.7, renal diet recommended History of Present Illness - Reason for Consult Consult date: 02/08/17 Chronic Kidney Disease Requesting physician: Nimesh Arriola - History of Present Illness 76 y o male with PMH of stage 4 CKD, CVAs and seizure d/o admitted with seizures. Renal consulted given his CKD late stage 4 history for which he sees Dr Jarvis, my associate with [facility] already in place but not yet ready for [employer]. Scr noted at 3.85, GFR 15 on arrival ad already improving to 3.73, GRR 16 since arrival. He denies any urinary sxs at present. Past Med Surg Social Fam HX - Past Medical History Medical history: coronary artery disease, CVA, hyperlipidemia, hypertension, renal disease Psychiatric history: no psych history - Past Surgical History Surgical History: non-contributory, pacemaker/AICD, pacemaker - Social History Smoking Status: Never smoker Smokeless Tobacco Status: No Alcohol use: none Drug use: none Medications and Allergies Atorvastatin [Lipitor] 40 mg PO HS 08/14/16 [History] Carvedilol [Coreg] 25 mg PO BID 08/14/16 [History] Cyanocobalamin (Vitamin B-12) [Vitamin B-12] 500 mcg PO DAILY 08/14/16 [History] Dextran 70/Hypromellose [Natural Balance Tears Eye Drop] 1 drop BOTH EYES QID PRN 08/14/16 [History] Ferrous Gluconate 325 mg PO DAILY 08/14/16 [History] Finasteride [Proscar] 5 mg PO DAILY 08/14/16 [History] Hydralazine HCl 100 mg PO TID 08/14/16 [History] Insulin ASPART [NovoLOG] 3 - 8 unit SQ TID MDD PER SLIDING SCALE 08/14/16 [ History] Isosorbide MONOnitrate [Isosorbide Mononitrate ER] 30 mg PO BID 08/14/16 [ History] Melatonin 6 mg PO HS PRN 08/14/16 [History] NIFEdipine [Afeditab Cr] 90 mg PO DAILY 08/14/16 [History] Nitroglycerin [Nitrostat] 0.4 mg SL Q5M PRN 08/14/16 [History] Pantoprazole Sodium [Protonix] 40 mg PO DAILY 08/14/16 [History] Tamsulosin [Flomax] 0.8 mg PO DAILY 08/14/16 [History] Phenytoin ER [Dilantin ER] 100 mg PO QID #0 08/18/16 [Rx] Aspirin [Lo-Dose Aspirin EC] 81 mg PO DAILY 01/07/17 [History] Calcium Acetate [Phos-LO] 667 mg PO TIDWM 01/07/17 [History] Furosemide [Lasix] 60 mg PO DAILY 01/07/17 [History] Ipratropium/Albuterol Neb [Duoneb] 3 ml IH Q4HR PRN 01/07/17 [History] Polyethylene Glycol 3350 [Purelax] 17 gm PO DAILY PRN 01/07/17 [History] Sennosides [Senna] 8.6 mg PO BID PRN 01/07/17 [History] Sertraline [Zoloft] 50 mg PO DAILY 01/07/17 [History] Sodium Bicarbonate 1,300 mg PO BID 01/07/17 [History] Sodium Polystyrene Sulfonate [Kayexalate] 15 gm PO FR 01/07/17 [History] Tramadol HCl [Ultram] 50 mg PO TID PRN 01/07/17 [History] Calcitriol [Rocaltrol] 0.25 mcg PO DAILY 02/08/17 [History] Chlorhexidine Gluconate [Peridex] 15 ml MM BID 02/08/17 [History] CloNIDine Patch [Catapres-TTS] 0.3 mg TD QWEEK 02/08/17 [History] Insulin Glargine,Hum.rec.anlog [Lantus Solostar] 12 unit SQ QPM 02/08/17 [ History] LORazepam [Ativan] 0.5 mg PO QID PRN 02/08/17 [History] Loperamide [Imodium] 4 mg PO TID PRN 02/08/17 [History] RisperiDONE [Risperdal] 0.5 mg PO BID PRN 02/08/17 [History] Allergies No Known Allergies Allergy (Verified 08/13/16 23:14) Exam - Vital Signs Vital signs: Initial Vital Signs Temp Pulse Resp BP Pulse Ox 97.7 F 66 20 189/82 100 02/07/17 19:14 02/07/17 19:14 02/07/17 19:14 02/07/17 19:14 02/07/17 19:14 Vital Signs - Last 8 Hours Temp Pulse Resp BP Pulse Ox 02/08/17 11:30 98.3 F 71 18 161/82 99 02/08/17 08:26 97.5 F L 64 16 167/73 100 Intake and Output 02/07/17 02/08/17 02/08/17 23:59 07:59 15:59 Intake Total 120 / 120 Output Total 950 / 950 Balance -950 / -950 120 / 120 Intake: Oral 120 / 120 Output: Catheter 950 / 950 Other: Meal Lunch Percent of Meal Consumed 55% Weight 81.9 kg Blood Glucose* 208 Patient Weight 02/08/17 23:59 Weight 81.9 kg Results - Lab Results 02/08/17 01:08 02/08/17 01:08 Most recent lab results Calcium 9.6 mg/dL (8.6-10.8) 02/08/17 01:08 Magnesium 2.3 mg/dL (1.6-2.6) 02/07/17 19:52 Consult Discharge Plan - Plan [facility]errals: [facility] [Primary Care Provider] -
--- NOTE | 2017-02-08 15:26 | Consult Note ---
Date of Encounter: 02/08/17 Time of Encounter: 02:00 Assessment & Recommendation (1) Depression Current visit: Yes Status: Chronic Assessment & Recommendation: Patient is seen and interviewed. At this point in time patient is adamantly denying any suicidal or homicidal ideations. However patient did appear to be showing poor tolerance to frustration. He did endorse some depressive symptoms. He is currently taking Zoloft 25 mg daily which I will increase to 50 mg daily for his depression At this point patient is denying any suicidal or homicidal ideations and does not appear to be psychotic or manic and there is some instability in no reason for the patient to be transferred to the psychiatric unit however I would recommend a regular psych follow-up while the patient is [place] I will also recommend high school social studies tutor to reach out to the family and get some collateral history from the family and their input regarding the patient's condition. Qualifiers: Depression Type: major depressive disorder Major depression recurrence: single episode Active/Remission status: currently active Major depression episode severity: unspecified Qualified Code(s): F32.9 - Major depressive disorder, single episode, unspecified History of Present Illness Patient: new to practice Requesting Physician: Jeet Zeng Reason for consult: To assess patient for depression and suicidality History of present illness: Mr. Castro is a 76 year old male Was referred for hospitalization from [facility] where patient was admitted for depression and suicidal behavior. While at the [facility] psychiatry unit patient refused to take his medications which include his seizure medications and started having seizures after which he was referred to [place] and was hospitalized on the MedSur floor for his seizures. I psych consult was given to assess patient for depression and suicidality. Upon interviewing today patient reported that he was initially hospitalized on the Med[facility] floor at the [facility] for his multiple medical problems which included stage IV chronic kidney disease, seizure disorder, hypertension and congestive heart failure. Patient reported that he was supposed to go to a usp/ rehabilitation from the [facility] but there was a delay and he started to get frustrated. Patient reported that his of 53 years was also hospitalized at [facility] and he wanted to visit her but he was stuck in the [facility] and he decided to leave the hospital. Patient reported that he was not allowed to leave and visit his . He reported that this led to frustration after which he tried to elope and then later got extremely depressed and found a small razor blade and tried to make superficial cuts to his wrist after which he was assessed and transferred to the lockdown unit in their psychiatric facility at the [facility]. Patient reported that he was extremely frustrated and hopeless over the lockdown unit. He reported that his depression got worse over there and finally he decided to stop his medications. Patient started having seizures after which he was brought to the hospital and was hospitalized at [facility]. During the interview today patient seems to be cooperative and he gave a detailed account of what led to his hospitalization. He seems to be alert during time place and person. He did endorse some depression however adamantly denying any suicidal thoughts or ideations. He did demonstrate poor tolerance to frustration throughout the interview and finally just shut down and stop talking to me. He did not exhibit any psychotic or manic symptoms throughout the interview. CC: Jeet Zeng Past Med Surg Social Fam HX - Past Medical History Medical history: coronary artery disease, CVA, hyperlipidemia, hypertension, renal disease - Past Psychiatric History Psychiatric history: Reports: no psych history Family psychiatric history: Unknown Family History of Suicide: Unknown - Past Surgical History Surgical History: non-contributory, pacemaker/AICD, pacemaker - Social History Smoking Status: Never smoker Smokeless Tobacco Status: No Alcohol use: none Drug use: none Occupational status: retired Current living situation: Home - Independent Activity Level: Wheelchair bound Recent Out of Country Travel Within the Last 8 Weeks: No Exposure or Possible Exposure to Illness During Travel: No Additional social history: Patient is a . He has been for 53 years. He resides with his . Denies any legal issues Medications & Allergies Atorvastatin [Lipitor] 40 mg PO HS 08/14/16 [History] Carvedilol [Coreg] 25 mg PO BID 08/14/16 [History] Cyanocobalamin (Vitamin B-12) [Vitamin B-12] 500 mcg PO DAILY 08/14/16 [History] Dextran 70/Hypromellose [Natural Balance Tears Eye Drop] 1 drop BOTH EYES QID PRN 08/14/16 [History] Ferrous Gluconate 325 mg PO DAILY 08/14/16 [History] Finasteride [Proscar] 5 mg PO DAILY 08/14/16 [History] Hydralazine HCl 100 mg PO TID 08/14/16 [History] Insulin ASPART [NovoLOG] 3 - 8 unit SQ TID MDD PER SLIDING SCALE 08/14/16 [ History] Isosorbide MONOnitrate [Isosorbide Mononitrate ER] 30 mg PO BID 08/14/16 [ History] Melatonin 6 mg PO HS PRN 08/14/16 [History] NIFEdipine [Afeditab Cr] 90 mg PO DAILY 08/14/16 [History] Nitroglycerin [Nitrostat] 0.4 mg SL Q5M PRN 08/14/16 [History] Pantoprazole Sodium [Protonix] 40 mg PO DAILY 08/14/16 [History] Tamsulosin [Flomax] 0.8 mg PO DAILY 08/14/16 [History] Phenytoin ER [Dilantin ER] 100 mg PO QID #0 08/18/16 [Rx] Aspirin [Lo-Dose Aspirin EC] 81 mg PO DAILY 01/07/17 [History] Calcium Acetate [Phos-LO] 667 mg PO TIDWM 01/07/17 [History] Furosemide [Lasix] 60 mg PO DAILY 01/07/17 [History] Ipratropium/Albuterol Neb [Duoneb] 3 ml IH Q4HR PRN 01/07/17 [History] Polyethylene Glycol 3350 [Purelax] 17 gm PO DAILY PRN 01/07/17 [History] Sennosides [Senna] 8.6 mg PO BID PRN 01/07/17 [History] Sertraline [Zoloft] 50 mg PO DAILY 01/07/17 [History] Sodium Bicarbonate 1,300 mg PO BID 01/07/17 [History] Sodium Polystyrene Sulfonate [Kayexalate] 15 gm PO FR 01/07/17 [History] Tramadol HCl [Ultram] 50 mg PO TID PRN 01/07/17 [History] Calcitriol [Rocaltrol] 0.25 mcg PO DAILY 02/08/17 [History] Chlorhexidine Gluconate [Peridex] 15 ml MM BID 02/08/17 [History] CloNIDine Patch [Catapres-TTS] 0.3 mg TD QWEEK 02/08/17 [History] Insulin Glargine,Hum.rec.anlog [Lantus Solostar] 12 unit SQ QPM 02/08/17 [ History] LORazepam [Ativan] 0.5 mg PO QID PRN 02/08/17 [History] Loperamide [Imodium] 4 mg PO TID PRN 02/08/17 [History] RisperiDONE [Risperdal] 0.5 mg PO BID PRN 02/08/17 [History] Allergies No Known Allergies Allergy (Verified 08/13/16 23:14) Review of Systems Psychiatric: Reports: depression, hopelessness Mental Status Exam Patient orientation: Yes Person, Yes Time, Yes Place Level of alertness: Alert Patient appearance: Appropriate Behavior: anxious Psychomotor activity: Normal Eye contact: Maintains Eye Contact Mood description: Irritable Affect description: dysphoric Speech pattern: Normal rate, Normal rhythm, Normal tone Speech volume: Soft/Quiet Thought process: Linear, Goal Oriented Thought content: No Suicidal ideation, No Homicidal ideation, No Overt delusions Perceptual disturbances: No Auditory hallucinations, No Visual hallucinations Attention span: Capable of Focused Attention Memory description: Grossly Intact Patient reliability: Reliable Historian Intelligence estimate: Average Judgment: Limited Insight: Minimal Results - Vital Signs Vital signs: Temp Pulse Resp BP Pulse Ox 98.3 F 71 18 161/82 99 02/08/17 11:30 02/08/17 11:30 02/08/17 11:30 02/08/17 11:30 02/08/17 11:30 - Drug Levels and Toxicology Drug Levels and Toxicology: Drug Levels and Toxicity 02/08/17 02:56 Urine Opiates Screen Negative Ur Barbiturates Screen Negative Ur Phencyclidine Scrn Negative Ur Amphetamines Screen Negative U Benzodiazepines Scrn Negative Urine Cocaine Screen Negative U Marijuana (THC) Screen Negative - Labs Labs: Laboratory Last Values WBC 5.8 K/mcL (4.3-11.1) 02/08/17 01:08 RBC 3.08 M/mcL (4.19-5.50) L 02/08/17 01:08 Hgb 9.2 g/dL (12.9-16.9) L 02/08/17 01:08 Hct 29.0 % (37.5-50.1) L 02/08/17 01:08 MCV 94.2 fL (83.0-100.0) 02/08/17 01:08 MCH 29.9 pg (28.0-33.3) 02/08/17 01:08 MCHC 31.7 g/dL (31.6-35.5) 02/08/17 01:08 RDW 14.4 % (11.5-14.5) 02/08/17 01:08 Plt Count 105 K/mcL (140-400) L 02/08/17 01:08 MPV 10.1 fL (9.4-12.4) 02/08/17 01:08 Immature Gran % 0.3 % (0-4) 02/08/17 01:08 Seg Neutrophils % 67.5 % 02/08/17 01:08 Lymphocytes % 18.0 % 02/08/17 01:08 Monocytes % 8.2 % 02/08/17 01:08 Eosinophils % 5.7 % 02/08/17 01:08 Basophils % 0.3 % 02/08/17 01:08 Neutrophils # 3.9 K/mcL (1.6-8.9) 02/08/17 01:08 Lymphocytes # 1.1 K/mcL (0.6-4.6) 02/08/17 01:08 Monocytes # 0.5 K/mcL (0.0-1.3) 02/08/17 01:08 Eosinophils # 0.3 K/mcL (0.0-0.6) 02/08/17 01:08 Basophils # 0.0 K/mcL (0.0-0.2) 02/08/17 01:08 PT 12.7 Seconds (9.4-12.1) H 02/07/17 19:52 INR 1.2 02/07/17 19:52 Sodium 139 mEq/L (136-145) 02/08/17 01:08 Potassium 4.7 mEq/L (3.5-4.5) H 02/08/17 01:08 Chloride 105 mEq/L (98-109) 02/08/17 01:08 Carbon Dioxide 28 mEq/L (19-29) 02/08/17 01:08 BUN 57 mg/dL (8-26) H 02/08/17 01:08 Creatinine 3.73 mg/dL (0.72-1.25) H 02/08/17 01:08 Est GFR ( Amer) 19 (> 60) L 02/08/17 01:08 Est GFR (Non-Af Amer) 16 (> 60) L 02/08/17 01:08 BUN/Creatinine Ratio 15 (6-26) 02/08/17 01:08 Glucose 224 mg/dL (70-99) H 02/08/17 01:08 POC Glucose 208 (58-89) H 02/08/17 11:27 Est Mean Plasma Glucose 189 mg/dl 02/08/17 01:08 Hemoglobin A1c 8.2 % (-5.6) H 02/08/17 01:08 Calculated Osmolality 311 (280-300) H 02/08/17 01:08 Calcium 9.6 mg/dL (8.6-10.8) 02/08/17 01:08 Magnesium 2.3 mg/dL (1.6-2.6) 02/07/17 19:52 Total Bilirubin 0.4 mg/dL (0.2-1.2) 02/08/17 01:08 AST 22 Units/L (5-34) 02/08/17 01:08 ALT 21 Units/L (0-55) 02/08/17 01:08 Alkaline Phosphatase 138 Units/L (38-126) H 02/08/17 01:08 Serum Total Protein 6.6 g/dL (6.0-8.3) 02/08/17 01:08 Albumin 2.8 g/dL (3.5-5.0) L 02/08/17 01:08 Globulin 3.8 g/dL (2.4-3.5) H 02/08/17 01:08 Albumin/Globulin Ratio 0.7 (1.1-2.2) L 02/08/17 01:08 Urine Color Yellow (Yellow) 02/08/17 02:56 Urine Clarity Cloudy (Clear) A 02/08/17 02:56 Urine pH 7.0 pH Units (5.0-8.0) 02/08/17 02:56 Ur Specific [place] 1.016 (1.010-1.025) 02/08/17 02:56 Urine Protein >=300 mg/dL (Neg-Trace) H 02/08/17 02:56 Urine Glucose (UA) 100 mg/dL (Normal) H 02/08/17 02:56 Urine Ketones Negative mg/dL (Negative) 02/08/17 02:56 Urine Blood Trace (Negative) H 02/08/17 02:56 Urine Nitrite Negative (Negative) 02/08/17 02:56 Urine Bilirubin Negative (Negative) 02/08/17 02:56 Urine Urobilinogen Normal mg/dL (Normal) 02/08/17 02:56 Ur Leukocyte Esterase Small (Negative) H 02/08/17 02:56 Urine Microscopic RBC 5-15 per hpf (0-3) H 02/08/17 02:56 Urine Microscopic WBC 50-100 per hpf (0-3) H 02/08/17 02:56 Ur Squamous Epith Cells None Seen per lpf (None-Few) 02/08/17 02:56 Amorphous Sediment Few (Few) 02/08/17 02:56 Urine Bacteria Few per hpf (None-Few) 02/08/17 02:56 Hyaline Casts None Seen per lpf (None-Few) 02/08/17 02:56 Urine Yeast Few per hpf (None Seen) H 02/08/17 02:56 Urine Opiates Screen Negative ng/mL (Udiyop=049) 02/08/17 02:56 Ur Barbiturates Screen Negative ng/mL (Kvjndg=871) 02/08/17 02:56 Phenytoin 5.4 mcg/mL (10-20) L 02/08/17 01:08 Ur Phencyclidine Scrn Negative ng/mL (Cutoff=25) 02/08/17 02:56 Ur Amphetamines Screen Negative ng/mL (Hsbjyh=7390) 02/08/17 02:56 U Benzodiazepines Scrn Negative ng/mL (Dlbyms=158) 02/08/17 02:56 Urine Cocaine Screen Negative ng/mL (Cutoff= 300) 02/08/17 02:56 U Marijuana (THC) Screen Negative ng/mL (Cutoff = 50) 02/08/17 02:56 Consult Discharge Plan - Plan [facility] -
[2017-02-09] MEDS: *HR* Heparin 5,000 UNIT/ML VIAL SQ SCH ×3 (04:35→17:38)
[2017-02-09] MEDS ORDERED: traMADol 50 MG TABLET PO PRN (08:06)
[2017-02-09] MEDS: Insulin LISPRO 300 UNITS/3 ML VIAL SQ SCH ×4 (08:09→21:23)
[2017-02-09] MEDS: NIFEdipine XL (24 HR) 30 MG TAB.ER.24 PO SCH (08:09)
[2017-02-09] MEDS: Finasteride 5 MG TABLET PO SCH (08:10)
[2017-02-09] MEDS: Isosorbide MONOnitrate (24 HR) 30 MG TAB.ER.24H PO SCH (08:10)
[2017-02-09] MEDS: Furosemide 20 MG TABLET PO SCH (08:10)
[2017-02-09] MEDS: Aspirin Enteric Coated 81 MG Tablet PO SCH (08:10)
[2017-02-09] MEDS: Cyanocobalamin (B-12) 1,000 MCG TABLET PO SCH (08:11)
[2017-02-09] MEDS: Cholecalciferol (D-3) 1,000 UNIT TABLET PO SCH (08:11)
[2017-02-09] MEDS: Calcium Acetate 667 MG CAPSULE PO SCH ×3 (08:11→17:38)
[2017-02-09] MEDS: hydrALAZINE 25 MG TABLET PO SCH ×3 (08:11→21:22)
[2017-02-09 08:17] LABS: Basophils % 0.3 %; Eosinophils # 0.3 K/mcL (0.0-0.6); Eosinophils % 4.9 %; Hematocrit 30.9 % (37.5-50.1); Hemoglobin 9.8 g/dL (12.9-16.9); Immature Granulocytes % 0.3 % (0-4); Lymphocytes # 1.1 K/mcL (0.6-4.6); Lymphocytes % 16.6 %; Mean Corpuscular HGB Conc 31.7 g/dL (31.6-35.5); Mean Corpuscular Hemoglobin 29.9 pg (28.0-33.3); Mean Corpuscular Volume 94.2 fL (83.0-100.0); Mean Platelet Volume 10.2 fL (9.4-12.4); Monocytes # 0.5 K/mcL (0.0-1.3); Monocytes % 7.4 %; Neutrophils # 4.5 K/mcL (1.6-8.9); Platelet Count 104 K/mcL (140-400); Red Blood Count 3.28 M/mcL (4.19-5.50); Red Cell Distribution Width 14.5 % (11.5-14.5); Segmented Neutrophils % 70.5 %
[2017-02-09 08:22] LABS: INR 1.1; Prothrombin Time 12.2 Seconds (9.4-12.1)
[2017-02-09 08:31] LABS: Calcium 9.7 mg/dL (8.6-10.8); Potassium 4.5 mEq/L (3.5-4.5)
[2017-02-09] MEDS ORDERED: Famotidine 20 MG TABLET PO SCH (09:00)
--- NOTE | 2017-02-09 11:18 | Discharge Summary ---
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 The nursing staff expressed the possibility of a pseudoseizure. She describes it as the patient leaning back with his head and making noises, that he is completely alert and oriented afterwards with no memory loss. He has received his antiseizure medications. -After this, patient did not have any reported seizures or pseudoseizures in the hospital. -EEG was performed, showed no abnormalities. (2) Depression Priority: Secondary Status: Chronic Comments: Chronic major depression - continue home medications -Was recently in the psych unit at the [facility], and was going to be released. -Patient admits that he attempted suicide before being placed in isolation. -This was when he went on strike with his medications. -Psychiatry was consulted. They do not recommend his transfer to a psychiatric facility, but they do recommend regular follow-up with psychiatry as long as he is in the hospital. -Patient's depressive symptoms gradually subsided during stay in the hospital. Qualifiers: Depression Type: major depressive disorder Major depression recurrence: single episode Active/Remission status: currently active Major depression episode severity: unspecified Qualified Code(s): F32.9 - Major depressive disorder, single episode, unspecified (3) CKD (chronic kidney disease) stage 4, GFR 15-29 ml/min Priority: Secondary Status: Chronic Comments: CKD stage IV - creatinine and GFR likely at baseline Patient has a left arm AV fistula - not on hemodialysis as yet (4) Congestive heart failure (CHF) Priority: Secondary Status: Chronic Comments: CHF systolic dysfunction with LVEF 45% and diastolic dysfunction - not in exacerbation, status post AICD Continue home meds, strict I's and O's, fluid restriction, daily weight Qualifiers: Congestive heart failure type: systolic Congestive heart failure chronicity : chronic Qualified Code(s): I50.22 - Chronic systolic (congestive) heart failure (5) Scrotal swelling Priority: Secondary Status: Acute Comments: Patient states that he has had a swollen scrotum for a couple of years. -He states that at times it is painful. -He also states that it has been infected several times. -Ultrasound of scrotum was performed. Showed hydrocele on both sides. No evidence of mass. (6) Diarrhea Priority: Secondary Status: Acute Comments: Patient stated that he has diarrhea on 02/11. -Denied seeing any blood in stool. -Diarrhea accompanied by diffuse lower abdominal pain, described as a cramp- like sensation. -Not accompanied by nausea or vomiting. Qualifiers: Diarrhea type: unspecified type Qualified Code(s): R19.7 - Diarrhea, unspecified - Discharge Medications Home Medications: Atorvastatin [Lipitor] 40 mg PO HS 08/14/16 [History] Carvedilol [Coreg] 25 mg PO BID 08/14/16 [History] Cyanocobalamin (Vitamin B-12) [Vitamin B-12] 500 mcg PO DAILY 08/14/16 [History] Dextran 70/Hypromellose [Natural Balance Tears Eye Drop] 1 drop BOTH EYES QID PRN 08/14/16 [History] Ferrous Gluconate 325 mg PO DAILY 08/14/16 [History] Finasteride [Proscar] 5 mg PO DAILY 08/14/16 [History] Hydralazine HCl 100 mg PO TID 08/14/16 [History] Insulin ASPART [NovoLOG] 3 - 8 unit SQ TID MDD PER SLIDING SCALE 08/14/16 [ History] Isosorbide MONOnitrate [Isosorbide Mononitrate ER] 30 mg PO BID 08/14/16 [ History] Melatonin 6 mg PO HS PRN 08/14/16 [History] NIFEdipine [Afeditab Cr] 90 mg PO DAILY 08/14/16 [History] Nitroglycerin [Nitrostat] 0.4 mg SL Q5M PRN 08/14/16 [History] Pantoprazole Sodium [Protonix] 40 mg PO DAILY 08/14/16 [History] Tamsulosin [Flomax] 0.8 mg PO DAILY 08/14/16 [History] Phenytoin ER [Dilantin ER] 100 mg PO QID #0 08/18/16 [Rx] Aspirin [Lo-Dose Aspirin EC] 81 mg PO DAILY 01/07/17 [History] Calcium Acetate [Phos-LO] 667 mg PO TIDWM 01/07/17 [History] Furosemide [Lasix] 60 mg PO DAILY 01/07/17 [History] Ipratropium/Albuterol Neb [Duoneb] 3 ml IH Q4HR PRN 01/07/17 [History] Polyethylene Glycol 3350 [Purelax] 17 gm PO DAILY PRN 01/07/17 [History] Sennosides [Senna] 8.6 mg PO BID PRN 01/07/17 [History] Sertraline [Zoloft] 50 mg PO DAILY 01/07/17 [History] Sodium Bicarbonate 1,300 mg PO BID 01/07/17 [History] Sodium Polystyrene Sulfonate [Kayexalate] 15 gm PO FR 01/07/17 [History] Tramadol HCl [Ultram] 50 mg PO TID PRN 01/07/17 [History] Calcitriol [Rocaltrol] 0.25 mcg PO DAILY 02/08/17 [History] Chlorhexidine Gluconate [Peridex] 15 ml MM BID 02/08/17 [History] CloNIDine Patch [Catapres-TTS] 0.3 mg TD QWEEK 02/08/17 [History] Insulin Glargine,Hum.rec.anlog [Lantus Solostar] 12 unit SQ QPM 02/08/17 [ History] LORazepam [Ativan] 0.5 mg PO QID PRN 02/08/17 [History] Loperamide [Imodium] 4 mg PO TID PRN 02/08/17 [History] RisperiDONE [Risperdal] 0.5 mg PO BID PRN 02/08/17 [History] Allergies/Adverse Reactions: Allergies No Known Allergies Allergy (Verified 08/13/16 23:14) Procedures/tests Complete & Pending: Procedures Performed prior 72 hours Category Date Time Status US scrotum doppler [US] Routine Exams 02/09/17 14:30 Ordered Date of admission: 02/08/17 01:11 [facility] Consults: 02/08/17 01:13 Consult to Psychiatry [CONS] Routine Consulting Provider: Psychiatry Grazyna Reason for Consult: depression Call Completed: No 02/09/17 10:21 Consult to Interpret Exam [CONS] Routine Consulting Provider: Noel No Consult to Interpret Exam: Interpret EEG Discharging clinician: Bacilio Martin Anticipated date of discharge: 02/12/17 - Patient Status Disposition: Transfer [facility] Condition: Fair Overall status at discharge: patient is progressing back to baseline - Discharge Instructions Follow Up With: [facility] Provider[facility] - [facility] - Diet and Activity Activity: increase activity as tolerated Diet: advance to your usual diet Hospital course: Mr. Castro is a 76 year old male with past medical history of coronary artery disease, CVA, CHF, hyperlipidemia, hypertension, CK D stage IV, seizure disorder , depression, BPH, and scrotal swelling. He presented [facility] the [facility] from the [facility] for a [facility]. When he was examined in the ER, he was seems to be postictal. He was easily arousable. He was only oriented to person. He was not in any distress. He was unable to provide any history. Patient had a tonic-clonic seizure lasting about 15-20 minutes in the ER. He was given 2 mg of IV Ativan and also 1 g of fosphenytoin. The Dilantin level is low at 0.9. Patient was initially awake and alert and oriented to place and person ED but he seems to be increasing postictal and drowsy at this time. Patient is protecting his airway. Patient has apparently been refusing his antiepileptic medication over the past 3 days. Further history obtained revealed that the reason patient had a seizure was because he had skipped taking his medications. [facility] escaped from [facility] in order to see his . He states that the [facility] would not let him see his because he was not in good condition to leave the facility. On his second escaped from the hospital, patient cut his wrist on purpose, and was placed in isolation. During this time, patient admits that he stops taking his medications which included his seizure medication. On his first hospital, patient states that he does feel depressed, but denies having any other symptoms. He was oriented only to person. He did not have any confusion, headache, or any other neurologic deficits. Psychiatry was consulted for this patient, and psychiatry did not recommend the patient being transferred to a psychiatric center. Psychiatry did however recommend routine follow-ups with psychiatry as long as he stated hospital. On his second hospital, patient stated that he still feels somewhat depressed, and that he had a loss of appetite. EEG was performed. - Time Spent with Patient Total time spent providing and/or coordinating discharge services: Greater than 30 minutes (41 minutes) - Constitutional Vitals: Temp Pulse Resp BP Pulse Ox 98.3 F 71 16 181/75 95 02/09/17 07:12 02/09/17 07:12 02/09/17 07:12 02/09/17 07:12 02/09/17 07:12 General appearance: Present: A&O X 3. Absent: answers questions appropriately - Head Head exam: Present: atraumatic, normocephalic - Neck Neck exam general surgery: Present: supple, trachea midline. Absent: lymphadenopathy - Respiratory Respiratory exam: Present: CTAB. Absent: accessory muscle use, rales, rhonchi, wheezes - Cardiovascular Cardiovascular exam: Present: RRR, +S1, +S2. Absent: diastolic murmur, gallop, rubs, systolic murmur - Expanded Exam exam: testicular swelling: Left, Right - Extremities Exam Extremities exam: Present: warm, radial pulses palpable and symetrical. Absent : calf tenderness, cyanotic, pedal edema - Psychiatric Psychiatric exam: Present: normal mood - Skin Skin exam: Present: dry, intact <Fredo Carbajal - Last Filed: 02/12/17 16:07> Date of Encounter: 02/12/17 - Discharge Diagnosis (1) Seizure, grand mal Priority: Primary Status: Acute (2) Diarrhea Priority: Secondary Status: Resolved Qualifiers: Diarrhea type: unspecified type Qualified Code(s): R19.7 - Diarrhea, unspecified (3) Abdominal pain Priority: Secondary Status: Resolved Qualifiers: Abdominal location: left lower quadrant Qualified Code(s): R10.32 - Left lower quadrant pain (4) Depression Status: Chronic Qualifiers: Depression Type: major depressive disorder Major depression recurrence: single episode Active/Remission status: currently active Major depression episode severity: unspecified Qualified Code(s): F32.9 - Major depressive disorder, single episode, unspecified (5) Congestive heart failure (CHF) Status: Chronic Qualifiers: Congestive heart failure type: systolic Congestive heart failure chronicity : chronic Qualified Code(s): I50.22 - Chronic systolic (congestive) heart failure (6) Hypertension Priority: Secondary Status: Chronic Qualifiers: Hypertension type: essential hypertension Qualified Code(s): I10 - Essential (primary) hypertension (7) CKD (chronic kidney disease) stage 4, GFR 15-29 ml/min Status: Chronic (8) Anemia Priority: Secondary Status: Chronic Qualifiers: Anemia type: due to chronic kidney disease Chronic kidney disease stage: stage 4 (severe) Qualified Code(s): N18.4 - Chronic kidney disease, stage 4 ( severe); D63.1 - Anemia in chronic kidney disease (9) Noncompliance with medication regimen Priority: Secondary Status: Chronic Procedures/tests Complete & Pending: Procedures Performed prior 72 hours Category Date Time Status US scrotum doppler [US] Routine Exams 02/09/17 16:30 Completed Date of admission: 02/08/17 01:11 Primary care physician: PCP [facility] Consults: 02/08/17 01:13 Consult to Psychiatry [CONS] Routine Consulting Provider: Psychiatry Grazyna Reason for Consult: depression Call Completed: No 02/09/17 10:21 Consult to Interpret Exam [CONS] Routine Consulting Provider: Shahnaz Forte Consult to Interpret Exam: Interpret EEG 02/09/17 11:56 Consult to Physical Therapy [CONS] Routine Comment: Evaluate, develop and implement POC Reason for Consult: For placement to [facility] 02/09/17 11:57 Consult to Occupational Therapy [CONS] Routine Comment: Evaluate, develop and implement POC Reason for Consult: Needed for placment to [facility] Hospital course: Mr. Castro is a 76 year old male - Time Spent with Patient Total time spent providing and/or coordinating discharge services: 39min - Constitutional Vitals: Temp Pulse Resp BP Pulse Ox 97.9 F 64 14 171/71 95 02/12/17 11:01 02/12/17 11:01 02/12/17 11:01 02/12/17 11:01 02/12/17 11:01 - Attending Attestation I examined this patient and my medical decision-making was reviewed with the Resident Physician on 02/12/17. I agree with the documented findings, disposition and treatment plan as described except to the extent set forth below. Mr. Castro had been admitted for grand mal seizures related to noncompliance with medications. He was evaluated by psychiatry due to concern for suicidal ideation and cleared. He was also seen by renal service due to hx of CKD 4-5. He is currently afebrile and doing better overall. He is to be transferred to inpatient service at [facility]. Exam Alert. Comfortable Pleasant Mucus membranes moist Heart reg No wheeze Abd soft Plan D/C to inpatient medicine at [facility] pending transfer to [facility].
--- NOTE | 2017-02-09 14:31 | Internal Med Progress Note ---
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 The nursing staff expressed the possibility of a pseudoseizure. She describes it as the patient leaning back with his head and making noises, that he is completely alert and oriented afterwards with no memory loss. He has received his antiseizure medications. -EEG was performed this morning (2) Depression Current Visit: Yes Status: Chronic Assessment and plan: Chronic major depression - continue home medications -Was recently in the psych unit at the [facility], and was going to be released. -Patient admits that he attempted suicide before being placed in isolation. -This was when he went on strike with his medications. -He admits to feeling somewhat depressed as morning. -Psychiatry was consulted, stated that he didn't need to be admitted to psych center. Patient should follow up with psychiatry while at [facility]. Qualifiers: Depression Type: major depressive disorder Major depression recurrence: single episode Active/Remission status: currently active Major depression episode severity: unspecified Qualified Code(s): F32.9 - Major depressive disorder, single episode, unspecified (3) CKD (chronic kidney disease) stage 4, GFR 15-29 ml/min Current Visit: No Status: Chronic Assessment and plan: CKD stage IV - creatinine and GFR likely at baseline Patient has a left arm AV fistula - not on hemodialysis as yet Nephrology consult (4) Congestive heart failure (CHF) Current Visit: No Status: Chronic Assessment and plan: CHF systolic dysfunction with LVEF 45% and diastolic dysfunction - not in exacerbation, status post AICD Continue home meds, strict I's and O's, fluid restriction, daily weight Qualifiers: Congestive heart failure type: unspecified congestive heart failure type Congestive heart failure chronicity: chronic Qualified Code(s): I50.9 - Heart failure, unspecified (5) Scrotal swelling Current Visit: Yes Status: Acute Assessment and plan: Patient states that he has had a swollen scrotum for a couple of years. -He states that at times it is painful. -He also states that it has been infected several times. - Subjective Interval history: Patient seen and examined at bedside this morning. Patient stated this morning that he did not feel well. He admits to feeling somewhat depressed. He also admits to having somewhat of a loss of appetite. He denies having any seizures since yesterday. He denies having any other neurologic deficits. He denies headache, visual changes, dizziness, shortness of breath, or fatigue. - Constitutional Vitals: Temp Pulse Resp BP Pulse Ox 97.8 F 61 14 167/74 96 02/09/17 11:19 02/09/17 11:19 02/09/17 11:19 02/09/17 11:19 02/09/17 11:19 General appearance: Present: A&O X 1. Absent: answers questions appropriately - Head Head exam: Present: atraumatic, normocephalic - Neck Neck exam general surgery: Present: supple, trachea midline. Absent: lymphadenopathy - Respiratory Respiratory exam: Present: CTAB. Absent: accessory muscle use, rales, rhonchi, wheezes - Cardiovascular Cardiovascular exam: Present: RRR, +S1, +S2. Absent: diastolic murmur, gallop, rubs, systolic murmur - GI/Abdominal GI/Abdominal exam: Present: normal bowel sounds, soft, no peritoneal signs. Absent: distended, tenderness - Extremities Exam Extremities exam: Present: warm, radial pulses palpable and symetrical. Absent : calf tenderness, cyanotic, pedal edema - Skin Skin exam: Present: dry, intact Internal Medicine: Result - Labs CBC & Chem 7: 02/09/17 08:07 02/09/17 08:07 Labs: Short CBC 02/09/17 Range/Units 08:07 WBC 6.3 (4.3-11.1) K/mcL Hgb 9.8 L (12.9-16.9) g/dL Hct 30.9 L (37.5-50.1) % Plt Count 104 L (140-400) K/mcL Neutrophils # 4.5 (1.6-8.9) K/mcL BMP 02/09/17 08:07 Sodium 139 Potassium 4.5 Chloride 104 Carbon Dioxide 24 BUN 59 H Creatinine 3.71 H Glucose 229 H Calcium 9.7 - ABG Interpretation ABG results: PT/INR, D-dimer PT 12.2 Seconds (9.4-12.1) H 02/09/17 08:07 Consult Discharge Plan - Plan [facility]errals: [facility]Primary Care Provider[facility] - ([facility] res[facility] psych[facility] <Jeet Zeng H - Last Filed: 02/09/17 15:01> Date of Encounter: 02/09/17 - Constitutional Vitals: Temp Pulse Resp BP Pulse Ox 97.8 F 61 14 167/74 96 02/09/17 11:19 02/09/17 11:19 02/09/17 11:19 02/09/17 11:19 02/09/17 11:19 Internal Medicine: Result - Labs CBC & Chem 7: 02/09/17 08:07 02/09/17 08:07 Labs: Short CBC 02/09/17 Range/Units 08:07 WBC 6.3 (4.3-11.1) K/mcL Hgb 9.8 L (12.9-16.9) g/dL Hct 30.9 L (37.5-50.1) % Plt Count 104 L (140-400) K/mcL Neutrophils # 4.5 (1.6-8.9) K/mcL BMP 02/09/17 08:07 Sodium 139 Potassium 4.5 Chloride 104 Carbon Dioxide 24 BUN 59 H Creatinine 3.71 H Glucose 229 H Calcium 9.7 - ABG Interpretation ABG results: PT/INR, D-dimer PT 12.2 Seconds (9.4-12.1) H 02/09/17 08:07 - Attending Attestation Very deconditioned, not safe to be discharged home. Will not be accepted at the [facility] rehabilitation due to prior autolytic attempt. Consider other facilities for rehabilitation I examined this patient and my medical decision-making was reviewed with the Resident Physician. I agree with the documented findings, disposition and treatment plan as described except to the extent set forth below.
--- NOTE | 2017-02-09 14:31 | Electrocardiograph Report ---
[place] [id number] Test Date: 2017-02-08 Pat Name: Noel Castro Department: 112 Room: 2A11 Gender: M Power Plant Mechanic: SRINIVAS : [id number] Requested By: Nimesh Arriola Order Number: [id number] Reading MD: Allan Lofton MD Measurements Intervals Crapo Rate: 60 P: 144 NE: 151 QRS: 267 QRSD: 148 T: 105 QT: 486 QTc: 487 Interpretive Statements ELECTRONIC ATRIAL PACEMAKER ELECTRONIC VENTRICULAR PACEMAKER Electronically Signed On 02-09-2017 14:29:55 EDT by Allan Lofton MD
--- NOTE | 2017-02-09 17:50 | Nephrology Progress Note ---
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 Continue hydralazine, procardia and lisinopril as well. Qualifiers: Hypertension type: essential hypertension Qualified Code(s): I10 - Essential (primary) hypertension Subjective Interval history: Pt seen and examined complaining of lack of sleep overnight. He feels a little confused. No further complaints, eager to know when he would be discharged Objective - Vital Signs Vital signs: Vital Signs Temp Pulse Resp BP Pulse Ox 02/09/17 17:17 97.6 F 61 18 133/61 98 02/09/17 11:19 97.8 F 61 14 167/74 96 02/09/17 07:12 98.3 F 71 16 181/75 95 02/09/17 04:32 98.2 F 71 16 159/57 94 02/09/17 00:38 99.0 F 65 16 143/68 97 02/08/17 19:05 97.6 F 64 16 164/68 96 Intake and Output 02/09/17 02/09/17 02/09/17 07:59 15:59 23:59 Intake Total 720 / 720 Output Total 1025 / 1025 Balance -305 / -305 Intake: Oral 720 / 720 Output: Urine 1025 / 1025 Urethral (Barrett) 1025 / 1025 Other: Meal Lunch Percent of Meal Consumed 15% Stool Size Moderate Stool Consistency soft formed Stool Color Brown Green # Bowel Movements 1 Weight 81.1 kg Blood Glucose* 210 226 215 Patient Weight 02/09/17 23:59 Weight 81.1 kg - Lab 02/09/17 08:07 02/09/17 08:07 Most recent lab results Calcium 9.7 mg/dL (8.6-10.8) 02/09/17 08:07 Magnesium 2.3 mg/dL (1.6-2.6) 02/07/17 19:52 Consult Discharge Plan - Plan Referrals: [facility],PCP [Primary Care Provider] - ([facility]
--- NOTE | 2017-02-09 18:26 | Neurology Progress Note ---
Date of Encounter: 02/09/17 Time of Encounter: 18:23 Assessment and Plan (1) Seizure Current Visit: Yes Status: Acute Secondary to non-compliance. Phenytoin level 5.7 after loading dose and maintenance dose 100mg qid. Will keep current dilantin 100mg qid and follow up with PCP at [facility] and check dilantin level again and adjust dosage accordingly. There are chronic neurological deficits on his neurological examination likely chronic in nature. No further testing appears necessary at this time. Will sign off, please call if any questions Subjective Principal diagnosis: seizure disorder Interval history: Patient seen and examined. No recurrent seizures. Patient denies significant discomforts. Says that he has seizures all of his life. He admits that he has been taking dilantin but ragini not know how much dilantin has been taking. He states that he was taking 32 different medications and he got tired of it. He states that he takes his seizure medication but he does not know what he did actually take. Initial phenytoin level was very low. Now it was 5.7 on dilantin 100mg qid. Denies significant discomforts. He has history of CVA and feeling numb to his right arm. He does have a right sided facial droop Objective - Constitutional Vitals: Temp Pulse Resp BP Pulse Ox 97.6 F 61 18 133/61 98 02/09/17 17:17 02/09/17 17:37 02/09/17 17:37 02/09/17 17:37 02/09/17 17:37 - Neurological Exam Sensorimotor examination: Present: other (has monoparesis of right lower extremity; severe sensory loss in bilateral lower extremities and distally in upper extremities) Motor Examination: Present: other (Right arm paresis noted. Right left has focal muscle atrophy at the quadricepts due to multiple surgeries to the right knee) Motor examination - right side: 3/5: tibialis Anterior, quadriceps, toe extension (EHL), plantarflexion, 4/5: deltoids, biceps, triceps, wrist flexion, wrist extension, consultant intern, hip flexors Motor examination - left side: 4/5: quadriceps, tibialis Anterior, toe extension (EHL), plantarflexion (effort-dependent exam), 5/5: deltoids, biceps, triceps, wrist flexion, wrist extension, hip flexors, consultant intern Sensation intact: Present: other (decreased in legs and the right arm) Reflex and gait examination: other (areflexia except upper extremities, where it is 1+) Mental Status Examination: Present: awake (slow to talk, with mannerisms), alert , oriented to person, oriented to place, oriented to time, follows commands appropriately, answers questions appropriately, no agnosia, no aphasia, no aproxia Cranial nerve examination: Present: PERRL (Normal. ), EOMI (normal range), visual epps intact, corneal reflexes brisk symmetrically, sensory to face intact, mastication intact, no facial asymmetry is present (right facial drooping noted), no dysarthria, hearing is intact symmetrically, soft palate elevates bilaterally upon phonation, gag reflex intact, flexes SCM and trapezius muscles symmetrically with full power, tongue protrudes midline, no atrophy or facial fasiculations present Cerebellar examination: Present: no dysmetria (but slow), performs finger to nose and heel to rodríguez symmetrically without ataxia, no gait ataxia, no truncal ataxia, no difficulty with rapid alternating movements Results - Laboratory Findings CBC and BMP: 02/09/17 08:07 02/09/17 08:07 Abnormal lab findings: Abnormal lab results RBC 3.28 M/mcL (4.19-5.50) L 02/09/17 08:07 Hgb 9.8 g/dL (12.9-16.9) L 02/09/17 08:07 Hct 30.9 % (37.5-50.1) L 02/09/17 08:07 Plt Count 104 K/mcL (140-400) L 02/09/17 08:07 PT 12.2 Seconds (9.4-12.1) H 02/09/17 08:07 BUN 59 mg/dL (8-26) H 02/09/17 08:07 Creatinine 3.71 mg/dL (0.72-1.25) H 02/09/17 08:07 Est GFR ( Amer) 19 (> 60) L 02/09/17 08:07 Est GFR (Non-Af Amer) 16 (> 60) L 02/09/17 08:07 Glucose 229 mg/dL (70-99) H 02/09/17 08:07 POC Glucose 215 (58-89) H 02/09/17 17:19 Hemoglobin A1c 8.2 % (-5.6) H 02/08/17 01:08 Calculated Osmolality 312 (280-300) H 02/09/17 08:07 Alkaline Phosphatase 138 Units/L (38-126) H 02/08/17 01:08 Albumin 2.8 g/dL (3.5-5.0) L 02/08/17 01:08 Globulin 3.8 g/dL (2.4-3.5) H 02/08/17 01:08 Albumin/Globulin Ratio 0.7 (1.1-2.2) L 02/08/17 01:08 Urine Clarity Cloudy (Clear) A 02/08/17 02:56 Urine Protein >=300 mg/dL (Neg-Trace) H 02/08/17 02:56 Urine Glucose (UA) 100 mg/dL (Normal) H 02/08/17 02:56 Urine Blood Trace (Negative) H 02/08/17 02:56 Ur Leukocyte Esterase Small (Negative) H 02/08/17 02:56 Urine Microscopic RBC 5-15 per hpf (0-3) H 02/08/17 02:56 Urine Microscopic WBC 50-100 per hpf (0-3) H 02/08/17 02:56 Urine Yeast Few per hpf (None Seen) H 02/08/17 02:56 Phenytoin 5.4 mcg/mL (10-20) L 02/08/17 01:08 Consult Discharge Plan - Plan [facility]
[2017-02-09] MEDS: Insulin DETEMIR 100 UNIT/ML X5UNITS SQ SCH (21:31)
[2017-02-09] MEDS: Melatonin 3 MG TABLET PO PRN (21:46)
[2017-02-10] MEDS: *HR* Heparin 5,000 UNIT/ML VIAL SQ SCH ×2 (06:11→16:54)
[2017-02-10] MEDS: Insulin LISPRO 300 UNITS/3 ML VIAL SQ SCH ×4 (07:42→21:19)
[2017-02-10 08:00] LABS: Basophils % 0.4 %; Eosinophils # 0.3 K/mcL (0.0-0.6); Eosinophils % 6.2 %; Hematocrit 28.6 % (37.5-50.1); Hemoglobin 9.1 g/dL (12.9-16.9); Immature Granulocytes % 0.4 % (0-4); Lymphocytes # 1.3 K/mcL (0.6-4.6); Lymphocytes % 23.6 %; Mean Corpuscular HGB Conc 31.8 g/dL (31.6-35.5); Mean Corpuscular Hemoglobin 29.8 pg (28.0-33.3); Mean Corpuscular Volume 93.8 fL (83.0-100.0); Mean Platelet Volume 10.7 fL (9.4-12.4); Monocytes # 0.4 K/mcL (0.0-1.3); Monocytes % 7.9 %; Neutrophils # 3.3 K/mcL (1.6-8.9); Platelet Count 103 K/mcL (140-400); Red Blood Count 3.05 M/mcL (4.19-5.50); Red Cell Distribution Width 14.6 % (11.5-14.5); Segmented Neutrophils % 61.5 %
[2017-02-10 08:01] LABS: INR 1.1; Prothrombin Time 12.2 Seconds (9.4-12.1)
[2017-02-10 08:46] LABS: Calcium 9.7 mg/dL (8.6-10.8); Potassium 4.4 mEq/L (3.5-4.5)
[2017-02-10] MEDS: hydrALAZINE 25 MG TABLET PO SCH ×3 (09:05→20:30)
[2017-02-10] MEDS: Calcium Acetate 667 MG CAPSULE PO SCH ×3 (09:05→16:49)
[2017-02-10] MEDS: NIFEdipine XL (24 HR) 30 MG TAB.ER.24 PO SCH (09:05)
[2017-02-10] MEDS: Finasteride 5 MG TABLET PO SCH (09:06)
[2017-02-10] MEDS: Aspirin Enteric Coated 81 MG Tablet PO SCH (09:06)
[2017-02-10] MEDS: Isosorbide MONOnitrate (24 HR) 30 MG TAB.ER.24H PO SCH (09:06)
[2017-02-10] MEDS: Furosemide 20 MG TABLET PO SCH (09:06)
[2017-02-10] MEDS: Cyanocobalamin (B-12) 1,000 MCG TABLET PO SCH (09:06)
[2017-02-10] MEDS: Cholecalciferol (D-3) 1,000 UNIT TABLET PO SCH (09:07)
--- NOTE | 2017-02-10 09:43 | EEG/EMG/Oth Biometrics Report ---
EEG Procedure Report Date of procedure: 02/10/17 EEG Procedure: Routine EEG Procedure Note: This EEG was acquired with standard international 1020 system with EKG recording. The background EEG activity was characterized by the presence of posterior dominant alpha rhythm with the best frequency up to 9 Hz.. The background activity was reactive to eye openings. Sleep stages were characterized by the presence of background fragmentation, vertex waves, K complexes, and sleep spindles. There are no electrographic seizures identified during this tracing. There are no epileptiform discharges and focal slowing noted during this recording. Photic stimulation produced no abnormalities. Hyperventilation procedure was not performed EKG tracing showed no significant cardiac dysrhythmia. Impression: This is essentially a normal awake and asleep EEG. Clinical Correlation: Normal EEGs, however, do not exclude epilepsy. Clinical correlation advised.
--- NOTE | 2017-02-10 09:53 | Internal Med Progress Note ---
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 The nursing staff expressed the possibility of a pseudoseizure. She describes it as the patient leaning back with his head and making noises, that he is completely alert and oriented afterwards with no memory loss. He has received his antiseizure medications. -EEG was performed, showed no signs of having epilepsy. (2) Depression Current Visit: Yes Status: Chronic Assessment and plan: Chronic major depression - continue home medications -Was recently in the psych unit at the [facility], and was going to be released. -Patient admits that he attempted suicide before being placed in isolation. -This was when he went on strike with his medications. -Psychiatry was consulted, stated that he didn't need to be admitted to psych center. Patient should follow up with psychiatry while at [facility]. -Patient states this morning that he feels much better than when he did on admission. Qualifiers: Depression Type: major depressive disorder Major depression recurrence: single episode Active/Remission status: currently active Major depression episode severity: unspecified Qualified Code(s): F32.9 - Major depressive disorder, single episode, unspecified (3) CKD (chronic kidney disease) stage 4, GFR 15-29 ml/min Current Visit: No Status: Chronic Assessment and plan: CKD stage IV - creatinine and GFR likely at baseline Patient has a left arm AV fistula - not on hemodialysis as yet (4) Congestive heart failure (CHF) Current Visit: No Status: Chronic Assessment and plan: CHF systolic dysfunction with LVEF 45% and diastolic dysfunction - not in exacerbation, status post AICD Continue home meds, strict I's and O's, fluid restriction, daily weight Qualifiers: Congestive heart failure type: unspecified congestive heart failure type Congestive heart failure chronicity: chronic Qualified Code(s): I50.9 - Heart failure, unspecified (5) Scrotal swelling Current Visit: Yes Status: Acute Assessment and plan: Patient states that he has had a swollen scrotum for a couple of years. -He states that at times it is painful. -He also states that it has been infected several times. -Scrotal ultrasound was performed. No signs of epididymitis. Large right hydrocele and small left hydrocele were seen. No other abnormalities were detected. - Subjective Interval history: Patient seen and examined at bedside this morning. Patient is feeling better than when he did on admission and yesterday. Patient states that he no longer feels depressed. He states that he is eager to leave the hospital. He denies having any seizures this morning. He also denies having any headache, vision loss, convulsions, or weakness. Patient has no complaints at this time. - Constitutional Vitals: Temp Pulse Resp BP Pulse Ox 97.6 F 64 18 169/74 96 02/10/17 06:57 02/10/17 06:57 02/10/17 06:57 02/10/17 06:57 02/10/17 06:57 General appearance: Present: A&O X 3. Absent: answers questions appropriately - Head Head exam: Present: atraumatic, normocephalic - Neck Neck exam general surgery: Present: supple, trachea midline. Absent: lymphadenopathy - Respiratory Respiratory exam: Present: CTAB. Absent: accessory muscle use, rales, rhonchi, wheezes - Cardiovascular Cardiovascular exam: Present: RRR, +S1, +S2. Absent: diastolic murmur, gallop, rubs, systolic murmur - GI/Abdominal GI/Abdominal exam: Present: normal bowel sounds, soft, no peritoneal signs. Absent: distended, tenderness - Expanded Exam exam: testicular swelling: Left, Right - Extremities Exam Extremities exam: Present: warm, radial pulses palpable and symetrical. Absent : calf tenderness, cyanotic, pedal edema - Neurological Exam Neurological exam: Present: oriented X3 - Skin Skin exam: Present: dry, intact Internal Medicine: Result - Labs CBC & Chem 7: 02/10/17 07:36 02/10/17 07:36 Labs: Short CBC 02/10/17 Range/Units 07:36 WBC 5.3 (4.3-11.1) K/mcL Hgb 9.1 L (12.9-16.9) g/dL Hct 28.6 L (37.5-50.1) % Plt Count 103 L (140-400) K/mcL Neutrophils # 3.3 (1.6-8.9) K/mcL BMP 02/10/17 07:36 Sodium 140 Potassium 4.4 Chloride 104 Carbon Dioxide 28 BUN 59 H Creatinine 3.90 H Glucose 116 H Calcium 9.7 - ABG Interpretation ABG results: PT/INR, D-dimer PT 12.2 Seconds (9.4-12.1) H 02/10/17 07:36 - Impressions Impressions Scrotum Ultrasound 02/09/17 16:30 IMPRESSION: 1. Large right and small left complex hydroceles. 2. Normal Doppler flow in the testicles. D/ / Omar Gandhi MD / Omar Gandhi MD Interpreting Provider: Omar Gandhi MD Consult Discharge Plan - Plan [facility]errals: [facility] [Primary Care Provider[facility] - ([facility] res[facility] psych.) <SolomonFredo A - Last Filed: 02/10/17 16:11> Date of Encounter: 02/10/17 - Assessment and plan (1) Seizure, grand mal Current Visit: Yes Status: Acute Assessment and plan: Due to medical noncompliance. Has resolved. Med level therapeutic. (2) Depression Current Visit: Yes Status: Chronic Qualifiers: Depression Type: major depressive disorder Major depression recurrence: single episode Active/Remission status: currently active Major depression episode severity: unspecified Qualified Code(s): F32.9 - Major depressive disorder, single episode, unspecified (3) Congestive heart failure (CHF) Current Visit: No Status: Chronic Qualifiers: Congestive heart failure type: systolic Congestive heart failure chronicity : chronic Qualified Code(s): I50.22 - Chronic systolic (congestive) heart failure (4) Hypertension Current Visit: No Status: Chronic Assessment and plan: Appears to be controlled. Qualifiers: Hypertension type: essential hypertension Qualified Code(s): I10 - Essential (primary) hypertension (5) CKD (chronic kidney disease) stage 4, GFR 15-29 ml/min Current Visit: No Status: Chronic (6) Anemia Current Visit: No Status: Acute Qualifiers: Anemia type: due to chronic kidney disease Chronic kidney disease stage: stage 4 (severe) Qualified Code(s): N18.4 - Chronic kidney disease, stage 4 ( severe); D63.1 - Anemia in chronic kidney disease (7) Noncompliance with medication regimen Current Visit: Yes Status: Acute - Constitutional Vitals: Temp Pulse Resp BP Pulse Ox 98.2 F 60 16 113/54 97 02/10/17 14:49 02/10/17 14:49 02/10/17 14:49 02/10/17 14:49 02/10/17 10:56 Internal Medicine: Result - Labs CBC & Chem 7: 02/10/17 07:36 02/10/17 07:36 Labs: Short CBC 02/10/17 Range/Units 07:36 WBC 5.3 (4.3-11.1) K/mcL Hgb 9.1 L (12.9-16.9) g/dL Hct 28.6 L (37.5-50.1) % Plt Count 103 L (140-400) K/mcL Neutrophils # 3.3 (1.6-8.9) K/mcL BMP 02/10/17 07:36 Sodium 140 Potassium 4.4 Chloride 104 Carbon Dioxide 28 BUN 59 H Creatinine 3.90 H Glucose 116 H Calcium 9.7 - ABG Interpretation ABG results: PT/INR, D-dimer PT 12.2 Seconds (9.4-12.1) H 02/10/17 07:36 - Impressions Impressions Scrotum Ultrasound 02/09/17 16:30 IMPRESSION: 1. Large right and small left complex hydroceles. 2. Normal Doppler flow in the testicles. D/ / Omar Gandhi MD / Omar Gandhi MD Interpreting Provider: Omar Gandhi MD - Attending Attestation I examined this patient and my medical decision-making was reviewed with the Resident Physician on 02/10/17. I agree with the documented findings, disposition and treatment plan as described except to the extent set forth below. Mr. Castro is currently admitted for grand mal seizure without status. He remains moderate to high risk due to potential for worsening neuro status. Mr. Castro denies complaints at this time. No CP or SOB. No seizures for over 24 hours. Not moving around much. No fever or chills. [facility] Exam Alert. Comfortable resting in bed. Mucus membranes moist Heart reg Lungs clear Abd soft I/P 1. Seizure disorder without status - due to noncompliance with medications. Stable at this point. Continue same medications at this time. 2. CKD 4 3. Depression - denies suicidal ideation at this time. 4. Chronic systolic CHF [facility]tic[facility].
--- NOTE | 2017-02-10 12:45 | Neurology Progress Note ---
Date of Encounter: 02/10/17 Time of Encounter: 12:42 Assessment and Plan (1) Seizure Current Visit: Yes Status: Acute Patient reported developed few more episodes of seizure likely activity resembling non-epileptic seizures. Due to his current psychiatric disorder it does make sense that he may have psycogenic events, in light that he has already been treated with dilantin and that his EEG returned normal. at present time there does not appear to be strong reason to change his current antiepileptic therapy with dilantiin. If he continues to have recurrent seizure episodes then a tertiary medical center with fpc EEG monitoring capability may be needed for accurate diagnosis of treatment. At present time , will simply keep him on dilantin 100mg qid and have him follow up with PCP at [facility] for further neurological care for his seizures. Will sign off at this time please call if any questions Subjective Principal diagnosis: seizure disorder Interval history: Patient seen and examined. Reportedly the patient developed few seizure likely this morning, described as leaning to one side making noise, apparently no convulsion no tongue biting and no loss of urine, episodes not associated with postictal confusion. Patient has no recollection of the events. When asked about whether he had seizures this morning, he replied' why you ask'. He then complains when he was in the psychiatric word, there was no TV, no table and no nothing. Denies any specific discomforts. is eating comfortably. Is on Dilantin 100mg qid. Objective - Constitutional Vitals: Temp Pulse Resp BP Pulse Ox 98.2 F 60 16 122/52 97 02/10/17 10:56 02/10/17 10:56 02/10/17 10:56 02/10/17 10:56 02/10/17 10:56 - Neurological Exam Sensorimotor examination: Present: other (has monoparesis of right lower extremity; severe sensory loss in bilateral lower extremities and distally in upper extremities) Motor Examination: Present: other (Right arm paresis noted. Right left has focal muscle atrophy at the quadricepts due to multiple surgeries to the right knee) Motor examination - left side: 4/5: quadriceps, tibialis Anterior, toe extension (EHL), plantarflexion (effort-dependent exam), 5/5: deltoids, biceps, triceps, wrist flexion, wrist extension, hip flexors, environmental inspector Sensation intact: Present: other (decreased in legs and the right arm) Reflex and gait examination: other (areflexia except upper extremities, where it is 1+) Mental Status Examination: Present: awake (slow to talk, with mannerisms), alert , oriented to person, oriented to place, oriented to time, follows commands appropriately, answers questions appropriately, no agnosia, no aphasia, no aproxia Cranial nerve examination: Present: PERRL (Normal. ), EOMI (normal range), visual epps intact, corneal reflexes brisk symmetrically, sensory to face intact, mastication intact, no facial asymmetry is present (right facial drooping noted), no dysarthria, hearing is intact symmetrically, soft palate elevates bilaterally upon phonation, gag reflex intact, flexes SCM and trapezius muscles symmetrically with full power, tongue protrudes midline, no atrophy or facial fasiculations present Cerebellar examination: Present: no dysmetria (but slow), performs finger to nose and heel to rodríguez symmetrically without ataxia, no gait ataxia, no truncal ataxia, no difficulty with rapid alternating movements Results - Laboratory Findings CBC and BMP: 02/10/17 07:36 02/10/17 07:36 Abnormal lab findings: Abnormal lab results RBC 3.05 M/mcL (4.19-5.50) L 02/10/17 07:36 Hgb 9.1 g/dL (12.9-16.9) L 02/10/17 07:36 Hct 28.6 % (37.5-50.1) L 02/10/17 07:36 RDW 14.6 % (11.5-14.5) H 02/10/17 07:36 Plt Count 103 K/mcL (140-400) L 02/10/17 07:36 PT 12.2 Seconds (9.4-12.1) H 02/10/17 07:36 BUN 59 mg/dL (8-26) H 02/10/17 07:36 Creatinine 3.90 mg/dL (0.72-1.25) H 02/10/17 07:36 Est GFR ( Amer) 18 (> 60) L 02/10/17 07:36 Est GFR (Non-Af Amer) 15 (> 60) L 02/10/17 07:36 Glucose 116 mg/dL (70-99) H 02/10/17 07:36 POC Glucose 262 (58-89) H 02/10/17 11:54 Hemoglobin A1c 8.2 % (-5.6) H 02/08/17 01:08 Calculated Osmolality 308 (280-300) H 02/10/17 07:36 Alkaline Phosphatase 138 Units/L (38-126) H 02/08/17 01:08 Albumin 2.8 g/dL (3.5-5.0) L 02/08/17 01:08 Globulin 3.8 g/dL (2.4-3.5) H 02/08/17 01:08 Albumin/Globulin Ratio 0.7 (1.1-2.2) L 02/08/17 01:08 Urine Clarity Cloudy (Clear) A 02/08/17 02:56 Urine Protein >=300 mg/dL (Neg-Trace) H 02/08/17 02:56 Urine Glucose (UA) 100 mg/dL (Normal) H 02/08/17 02:56 Urine Blood Trace (Negative) H 02/08/17 02:56 Ur Leukocyte Esterase Small (Negative) H 02/08/17 02:56 Urine Microscopic RBC 5-15 per hpf (0-3) H 02/08/17 02:56 Urine Microscopic WBC 50-100 per hpf (0-3) H 02/08/17 02:56 Urine Yeast Few per hpf (None Seen) H 02/08/17 02:56 Phenytoin 5.4 mcg/mL (10-20) L 02/08/17 01:08 Consult Discharge Plan - Plan [facility]
[2017-02-10] MEDS: Acetaminophen 325 MG TABLET PO PRN (20:29)
[2017-02-10] MEDS: Melatonin 3 MG TABLET PO PRN (20:30)
[2017-02-10] MEDS: Insulin DETEMIR 100 UNIT/ML X5UNITS SQ SCH (20:31)
[2017-02-11 06:50] LABS: Basophils % 0.2 %; Eosinophils # 0.3 K/mcL (0.0-0.6); Eosinophils % 6.9 %; Hematocrit 27.2 % (37.5-50.1); Hemoglobin 8.8 g/dL (12.9-16.9); Immature Granulocytes % 0.5 % (0-4); Lymphocytes # 1.1 K/mcL (0.6-4.6); Lymphocytes % 24.5 %; Mean Corpuscular HGB Conc 32.4 g/dL (31.6-35.5); Mean Corpuscular Hemoglobin 30.3 pg (28.0-33.3); Mean Corpuscular Volume 93.8 fL (83.0-100.0); Mean Platelet Volume 10.4 fL (9.4-12.4); Monocytes # 0.3 K/mcL (0.0-1.3); Monocytes % 7.9 %; Neutrophils # 2.6 K/mcL (1.6-8.9); Platelet Count 101 K/mcL (140-400); Red Cell Distribution Width 14.8 % (11.5-14.5)
[2017-02-11] MEDS: *HR* Heparin 5,000 UNIT/ML VIAL SQ SCH ×2 (06:55→17:02)
[2017-02-11 06:56] LABS: INR 1.1; Prothrombin Time 11.6 Seconds (9.4-12.1)
[2017-02-11 07:08] LABS: Calcium 9.4 mg/dL (8.6-10.8); Potassium 4.4 mEq/L (3.5-4.5)
[2017-02-11] MEDS: NIFEdipine XL (24 HR) 30 MG TAB.ER.24 PO SCH (08:05)
[2017-02-11] MEDS: Isosorbide MONOnitrate (24 HR) 30 MG TAB.ER.24H PO SCH (08:05)
[2017-02-11] MEDS: Aspirin Enteric Coated 81 MG Tablet PO SCH (08:06)
[2017-02-11] MEDS: Calcium Acetate 667 MG CAPSULE PO SCH ×3 (08:06→17:01)
[2017-02-11] MEDS: Cholecalciferol (D-3) 1,000 UNIT TABLET PO SCH (08:06)
[2017-02-11] MEDS: Cyanocobalamin (B-12) 1,000 MCG TABLET PO SCH (08:06)
[2017-02-11] MEDS: hydrALAZINE 25 MG TABLET PO SCH ×3 (08:06→21:03)
[2017-02-11] MEDS: Furosemide 20 MG TABLET PO SCH (08:07)
[2017-02-11] MEDS: Insulin LISPRO 300 UNITS/3 ML VIAL SQ SCH ×4 (08:07→21:05)
[2017-02-11] MEDS: Finasteride 5 MG TABLET PO SCH (08:08)
--- NOTE | 2017-02-11 08:17 | Nephrology Progress Note ---
Date of Encounter: 02/11/17 Time of Encounter: 10:00 - Assessment and Plan (1) CKD (chronic kidney disease) stage 4, GFR 15-29 ml/min Current Visit: No Status: Chronic Kidney function continues to worse Good UOP 1525 Mature fistula already in place Will check phos level--patient on a binder Avoid nephrotoxins if possible (2) Anemia Current Visit: No Status: Acute Hgb 9.1-stable Qualifiers: Anemia type: due to chronic kidney disease Chronic kidney disease stage: stage 4 (severe) Qualified Code(s): N18.4 - Chronic kidney disease, stage 4 ( severe); D63.1 - Anemia in chronic kidney disease (3) Hypertension Current Visit: No Status: Chronic B/P better with change in Coreg dosage Continue to monitor Qualifiers: Hypertension type: essential hypertension Qualified Code(s): I10 - Essential (primary) hypertension Subjective Principal diagnosis: seizure disorder Interval history: Patient seen and examined. Much better mood today, talkative. Objective - Vital Signs Vital signs: Vital Signs Temp Pulse Resp BP Pulse Ox 02/11/17 07:05 97.7 F 60 18 179/77 97 02/11/17 04:49 18 02/10/17 19:36 98.2 F 60 17 132/66 95 02/10/17 16:38 98.0 F 60 16 138/65 96 02/10/17 14:49 98.2 F 60 16 113/54 02/10/17 10:56 98.2 F 60 16 122/52 97 Intake and Output 02/10/17 02/11/17 02/11/17 23:59 07:59 15:59 Intake Total 240 / 240 Output Total 1500 / 1500 Balance 240 / 240 -1500 / -1500 Intake: Oral 240 / 240 Output: Catheter 1500 / 1500 Other: Meal Dinner Percent of Meal Consumed 90% Weight 80.1 kg Blood Glucose* 208 135 Patient Weight 02/11/17 23:59 Weight 80.1 kg - General Appearance General appearance: Present: well-developed, well-nourished EENT: Present: ATNC, mucous membranes moist, hearing intact, vision intact Neck: Present: supple Respiratory: Present: clear Cardiology: Present: no edema, normal S1, normal S2 Dialysis Vascular Access: Arteriovenous Fistula thrill: Yes bruit: Yes Gastrointestinal: Present: no tenderness, no guarding Integumentary: Present: warm and dry Neurologic: Present: alert and oriented x3 Psychiatric: Present: mood/affect appropriate, cooperative - Lab 02/11/17 06:35 02/11/17 06:35 Most recent lab results Calcium 9.4 mg/dL (8.6-10.8) 02/11/17 06:35 Magnesium 2.3 mg/dL (1.6-2.6) 02/07/17 19:52 Consult Discharge Plan - Plan [facility]
[2017-02-11 08:38] LABS: Phosphorous 3.4 mg/dL (2.3-4.7)
--- NOTE | 2017-02-11 10:03 | Internal Med Progress Note ---
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 (2) Diarrhea Current Visit: Yes Status: Acute Assessment and plan: Patient states that he has diarrhea this morning. -He has had one bowel movement so far. -Denied seeing any blood in stool. -Diarrhea accompanied by diffuse lower abdominal pain, described as a cramp- like sensation. -Not accompanied by nausea or vomiting. Qualifiers: Qualified Code(s): R19.7 - Diarrhea, unspecified (3) Depression Current Visit: Yes Status: Chronic Assessment and plan: Chronic major depression - continue home medications -Was recently in the psych unit at the [facility], and was going to be released. -Patient admits that he attempted suicide before being placed in isolation. -This was when he went on strike with his medications. -Psychiatry was consulted, stated that he didn't need to be admitted to psych center. Patient should follow up with psychiatry while at [facility]. -Patient denies feeling depressed this morning. Qualifiers: Depression Type: major depressive disorder Major depression recurrence: single episode Active/Remission status: currently active Major depression episode severity: unspecified Qualified Code(s): F32.9 - Major depressive disorder, single episode, unspecified (4) CKD (chronic kidney disease) stage 4, GFR 15-29 ml/min Current Visit: No Status: Chronic Assessment and plan: CKD stage IV - creatinine and GFR likely at baseline Patient has a left arm AV fistula - not on hemodialysis as yet (5) Congestive heart failure (CHF) Current Visit: No Status: Chronic Assessment and plan: CHF systolic dysfunction with LVEF 45% and diastolic dysfunction - not in exacerbation, status post AICD Continue home meds, strict I's and O's, fluid restriction, daily weight Qualifiers: Congestive heart failure type: systolic Congestive heart failure chronicity : chronic Qualified Code(s): I50.22 - Chronic systolic (congestive) heart failure (6) Scrotal swelling Current Visit: Yes Status: Acute Assessment and plan: Patient states that he has had a swollen scrotum for a couple of years. -He states that at times it is painful. -He also states that it has been infected several times. -Scrotal ultrasound was performed. No signs of epididymitis. Large right hydrocele and small left hydrocele were seen. No other abnormalities were detected. - Subjective Interval history: Patient seen and examined at bedside this morning. Patient states that this morning, he had diarrhea. He also claims that he has had abdominal pain throughout the morning. She describes this pain as a cramp-like sensation is reproduced by palpation. He denies having any nausea or vomiting. He has had one bowel movement so far this morning. Denied having any blood in stool. He denies feeling depressed this morning, and expresses interest in leaving. He currently denies fever, chills, weakness, fatigue, and shortness of breath. - Constitutional Vitals: Temp Pulse Resp BP Pulse Ox 97.7 F 60 18 179/77 97 02/11/17 07:05 02/11/17 07:05 02/11/17 07:05 02/11/17 07:05 02/11/17 07:05 General appearance: Present: mild distress, answers questions appropriately Exam: Patient says he is not doing very well this morning secondary to his recent onset of diarrhea and abdominal pain. - Head Head exam: Present: atraumatic, normocephalic - Neck Neck exam general surgery: Present: supple, trachea midline. Absent: lymphadenopathy - Respiratory Respiratory exam: Present: CTAB. Absent: accessory muscle use, rales, rhonchi, wheezes - Cardiovascular Cardiovascular exam: Present: RRR, +S1, +S2. Absent: diastolic murmur, gallop, rubs, systolic murmur - GI/Abdominal GI/Abdominal exam: Present: normal bowel sounds, soft, tenderness. Absent: distended Additional comments: Tenderness to palpation in lower abdomen and both right and left lower quadrants. Patient describes this pain as a cramp-like discomfort related to his diarrhea. - Skin Skin exam: Present: dry, intact Internal Medicine: Result - Labs CBC & Chem 7: 02/11/17 06:35 02/11/17 06:35 Labs: Short CBC 07/26/17 Range/Units 06:35 WBC 4.3 (4.3-11.1) K/mcL Hgb 8.8 L (12.9-16.9) g/dL Hct 27.2 L (37.5-50.1) % Plt Count 101 L (140-400) K/mcL Neutrophils # 2.6 (1.6-8.9) K/mcL BMP 02/11/17 06:35 Sodium 140 Potassium 4.4 Chloride 104 Carbon Dioxide 28 BUN 63 H Creatinine 4.13 H Glucose 123 H Calcium 9.4 - ABG Interpretation ABG results: PT/INR, D-dimer PT 11.6 Seconds (9.4-12.1) 02/11/17 06:35 Consult Discharge Plan - Plan [facility]errals: [facility]Primary Care Provider[facility] - ([facility] res[facility] psych.) <Fredo Carbajal - Last Filed: 02/11/17 17:17> Date of Encounter: 02/11/17 - Assessment and plan (1) Diarrhea Current Visit: Yes Status: Acute Qualifiers: Diarrhea type: unspecified type Qualified Code(s): R19.7 - Diarrhea, unspecified (2) Abdominal pain Current Visit: Yes Status: Acute Assessment and plan: Resolved at this time. Monitoring. Qualifiers: Abdominal location: left lower quadrant Qualified Code(s): R10.32 - Left lower quadrant pain (3) Seizure, grand mal Current Visit: Yes Status: Acute (4) Depression Current Visit: Yes Status: Chronic Qualifiers: Depression Type: major depressive disorder Major depression recurrence: single episode Active/Remission status: currently active Major depression episode severity: unspecified Qualified Code(s): F32.9 - Major depressive disorder, single episode, unspecified (5) Congestive heart failure (CHF) Current Visit: No Status: Chronic Qualifiers: Congestive heart failure type: systolic Congestive heart failure chronicity : chronic Qualified Code(s): I50.22 - Chronic systolic (congestive) heart failure (6) Hypertension Current Visit: No Status: Chronic Qualifiers: Hypertension type: essential hypertension Qualified Code(s): I10 - Essential (primary) hypertension (7) CKD (chronic kidney disease) stage 4, GFR 15-29 ml/min Current Visit: No Status: Chronic (8) Anemia Current Visit: No Status: Acute Qualifiers: Anemia type: due to chronic kidney disease Chronic kidney disease stage: stage 4 (severe) Qualified Code(s): N18.4 - Chronic kidney disease, stage 4 ( severe); D63.1 - Anemia in chronic kidney disease (9) Noncompliance with medication regimen Current Visit: Yes Status: Acute - Constitutional Vitals: Temp Pulse Resp BP Pulse Ox 97.8 F 60 16 135/64 96 02/11/17 15:41 02/11/17 15:41 02/11/17 15:41 02/11/17 15:41 02/11/17 15:41 Internal Medicine: Result - Labs CBC & Chem 7: 02/11/17 06:35 02/11/17 06:35 Labs: Short CBC 02/11/17 Range/Units 06:35 WBC 4.3 (4.3-11.1) K/mcL Hgb 8.8 L (12.9-16.9) g/dL Hct 27.2 L (37.5-50.1) % Plt Count 101 L (140-400) K/mcL Neutrophils # 2.6 (1.6-8.9) K/mcL BMP 02/11/17 06:35 Sodium 140 Potassium 4.4 Chloride 104 Carbon Dioxide 28 BUN 63 H Creatinine 4.13 H Glucose 123 H Calcium 9.4 - ABG Interpretation ABG results: PT/INR, D-dimer PT 11.6 Seconds (9.4-12.1) 02/11/17 06:35 - Attending Attestation I examined this patient and my medical decision-making was reviewed with the Resident Physician on 02/11/17. I agree with the documented findings, disposition and treatment plan as described except to the extent set forth below. Mr. Guillen is currently admitted for grand mal seizures related to medication noncompliance. He has developed lower abd pain and diarrhea today. He remains moderate to high risk due to potential for worsening neurologic and GI issues. Mr. Guillen had an episode of crampy abd pain and diarrhea. Denies blood. No fever or chills. No further episodes. No laxatives recorded. Denies urinary symptoms as well. Exam Alert. Comfortable Mucus membranes dry Heart reg Lungs clear at this time Abd soft and nontender now. No edema I/P 1. Acute episode of diarrhea - only once. Resolved now. Monitor (tolerating dinner very well at this time). 2. Seizure disorder Further diagnoses and plan as above.
[2017-02-11] MEDS: Insulin DETEMIR 100 UNIT/ML X5UNITS SQ SCH (21:04)
[2017-02-11] MEDS: Acetaminophen 325 MG TABLET PO PRN (21:24)
[2017-02-11] MEDS: Melatonin 3 MG TABLET PO PRN (21:24)
[2017-02-12 05:46] LABS: Basophils % 0.2 %; Eosinophils # 0.3 K/mcL (0.0-0.6); Eosinophils % 7.2 %; Hematocrit 28.1 % (37.5-50.1); Hemoglobin 8.7 g/dL (12.9-16.9); Immature Granulocytes % 0.7 % (0-4); Lymphocytes # 1.1 K/mcL (0.6-4.6); Lymphocytes % 24.1 %; Mean Corpuscular Volume 93.7 fL (83.0-100.0); Mean Platelet Volume 10.4 fL (9.4-12.4); Monocytes # 0.4 K/mcL (0.0-1.3); Monocytes % 8.7 %; Neutrophils # 2.7 K/mcL (1.6-8.9); Platelet Count 121 K/mcL (140-400); Red Cell Distribution Width 14.6 % (11.5-14.5); Segmented Neutrophils % 59.1 %
[2017-02-12 05:58] LABS: Calcium 9.6 mg/dL (8.6-10.8); Potassium 4.3 mEq/L (3.5-4.5)
[2017-02-12] MEDS: *HR* Heparin 5,000 UNIT/ML VIAL SQ SCH (06:26)
[2017-02-12] MEDS: NIFEdipine XL (24 HR) 30 MG TAB.ER.24 PO SCH (08:32)
[2017-02-12] MEDS: Cholecalciferol (D-3) 1,000 UNIT TABLET PO SCH (08:32)
[2017-02-12] MEDS: Finasteride 5 MG TABLET PO SCH (08:33)
[2017-02-12] MEDS: hydrALAZINE 25 MG TABLET PO SCH ×2 (08:33→13:50)
[2017-02-12] MEDS: Calcium Acetate 667 MG CAPSULE PO SCH ×2 (08:33→11:37)
[2017-02-12] MEDS: Furosemide 20 MG TABLET PO SCH (08:33)
[2017-02-12] MEDS: Cyanocobalamin (B-12) 1,000 MCG TABLET PO SCH (08:33)
[2017-02-12] MEDS: Isosorbide MONOnitrate (24 HR) 30 MG TAB.ER.24H PO SCH (08:33)
[2017-02-12] MEDS: Aspirin Enteric Coated 81 MG Tablet PO SCH (08:33)
[2017-02-12] MEDS: Insulin LISPRO 300 UNITS/3 ML VIAL SQ SCH ×2 (08:34→11:37)
--- NOTE | 2017-02-12 10:01 | Nephrology Progress Note ---
Date of Encounter: 02/12/17 Time of Encounter: 09:58 - Assessment and Plan (1) CKD (chronic kidney disease) stage 4, GFR 15-29 ml/min Current Visit: No Status: Chronic Scr 4.25, GFR 14-may be new baseline Excellent UOP Mature fistula already in place Phos level 3.4 Avoid nephrotoxins if possible Awaiting placement to ECF (2) Anemia Current Visit: No Status: Acute Hgb 8.7-stable Qualifiers: Anemia type: due to chronic kidney disease Chronic kidney disease stage: stage 4 (severe) Qualified Code(s): N18.4 - Chronic kidney disease, stage 4 ( severe); D63.1 - Anemia in chronic kidney disease (3) Hypertension Current Visit: No Status: Chronic B/P stable Continue to monitor Qualifiers: Hypertension type: essential hypertension Qualified Code(s): I10 - Essential (primary) hypertension Subjective Principal diagnosis: seizure disorder Interval history: Patient seen and examined. Quiet today but does answer a few questions. Objective - Vital Signs Vital signs: Vital Signs Temp Pulse Resp BP Pulse Ox 02/12/17 07:55 97.7 F 64 18 199/75 96 02/12/17 00:14 98.2 F 64 17 149/72 95 02/11/17 18:59 97.5 F L 59 17 143/51 97 02/11/17 15:41 97.8 F 60 16 135/64 96 02/11/17 11:16 97.4 F L 59 18 144/70 98 Intake and Output 02/11/17 02/12/17 02/12/17 23:59 07:59 15:59 Intake Total 120 / 120 60 / 60 Output Total 500 / 500 650 / 650 Balance 120 / 120 -500 / -500 -590 / -590 Intake: Oral 120 / 120 60 / 60 Output: Catheter 500 / 500 650 / 650 Other: Meal Dinner Percent of Meal Consumed 75% Weight 78.4 kg Blood Glucose* 284 161 Patient Weight 02/12/17 23:59 Weight 78.4 kg - General Appearance General appearance: Present: frail EENT: Present: ATNC, mucous membranes moist, hearing intact, vision intact Neck: Present: supple Respiratory: Present: clear Cardiology: Present: no edema, normal S1, normal S2 Dialysis Vascular Access: Arteriovenous Fistula Gastrointestinal: Present: no tenderness, no guarding Integumentary: Present: warm and dry Neurologic: Present: alert and oriented x3 Psychiatric: Present: mood/affect appropriate, cooperative - Lab 02/12/17 05:16 02/12/17 05:16 Most recent lab results Calcium 9.6 mg/dL (8.6-10.8) 02/12/17 05:16 Phosphorus 3.4 mg/dL (2.3-4.7) 02/11/17 06:35 Magnesium 2.3 mg/dL (1.6-2.6) 02/07/17 19:52 Consult Discharge Plan - Plan [facility]errals: [facility]Primary [facility] - [facility]
[2017-02-12 11:04] VITALS: BP 171/71
== END 2017-02-12 15:32 | DRG 101 ==
LOC: 2ANU 19:12 → EMEROO 19:12 → OBSVTOIN 23:17 → INTOOBSV 23:17 → 2ANU 23:45 → SUATTDRO 02-08 01:11 → 2ANU 02-12 09:33
PROVIDERS: ADMIT Internal Medicine; ATTEND Internal Medicine

== ENCOUNTER 2017-05-21 02:15 | Inpatient (IN) ==
[2017-05-21] MEDS ORDERED: *HR* Morphine 2 MG/ML SYRINGE IVP ONE ×2 (02:28→04:53)
--- NOTE | 2017-05-21 02:41 | Emergency Department Note ---
Disposition Clinical Impression: Ischium fracture Qualifiers: Encounter type: initial encounter Fracture type: closed Fracture morphology: unspecified fracture morphology Fracture alignment: nondisplaced Laterality: left Qualified Code(s): S32.602A - Unspecified fracture of left ischium, initial encounter for closed fracture Acetabulum fracture Qualifiers: Encounter type: initial encounter Sublocation of acetabulum: medial wall Fracture type: closed Fracture alignment: nondisplaced Laterality: left Qualified Code(s): S32.475A - Nondisplaced fracture of medial wall of left acetabulum, initial encounter for closed fracture Disposition: Admitted As Inpatient Condition: Good Time of Disposition: 02:43 Lower Extremity Injury HPI - General Chief Complaint: ED Fall Stated Complaint: fall, left hip pain Time Seen by Provider: 05/21/17 02:20 Source: patient, EMS Mode of arrival: ambulatory Limitations: no limitations Nursing Notes Reviewed: Yes Vital Signs Reviewed: Yes - History of Present Illness HPI Narrative: Patient is a 77-year-old male who was currently an inpatient at the [facility] that presents to the ED via EMS for left hip pain s/p mechanical fall. According to patient as he was moving from the bed to the wheelchair he fell and landed on his left hip. [facility] sent him to our facility secondary to being concerned for a possible left hip fracture. Patient is complaining of left hip and tailbone pain status post fall. He denies hitting his head, LOC, neck pain, weakness, chest pain, shortness of breath, nausea, vomiting, abdominal pain or any other symptoms/complaints/injuries. Pt Subjective Complaint: hip injury (left hip) Injury location: Left hip Onset (ago): Just [employer] Mechanism of Injury: fall Context: fall Place: other ([facility]) Pain Scale: 9 Improves with: nothing Worsens with: movement, palpation Associated symptoms: Reports: unable to bear weight, deformity. Denies: snap/ pop sensation, swelling, paresthesias, suspects foreign body, laceration, weakness - Related Data Home Medications Medication Instructions Recorded Confirmed Atorvastatin [Lipitor] 40 mg PO HS 08/14/16 02/08/17 Carvedilol [Coreg] 25 mg PO BID 08/14/16 02/08/17 Cyanocobalamin (Vitamin B-12) 500 mcg PO DAILY 08/14/16 02/08/17 [Vitamin B-12] Dextran 70/Hypromellose [Natural 1 drop BOTH EYES QID PRN 08/14/16 02/08/17 Balance Tears Eye Drop] Ferrous Gluconate 325 mg PO DAILY 08/14/16 02/08/17 Finasteride [Proscar] 5 mg PO DAILY 08/14/16 02/08/17 Hydralazine HCl 100 mg PO TID 08/14/16 02/08/17 Insulin ASPART [NovoLOG] 3 - 8 unit SQ TID MDD PER SLIDING 08/14/16 02/08/17 SCALE Isosorbide MONOnitrate [Isosorbide 30 mg PO BID 08/14/16 02/08/17 Mononitrate ER] Melatonin 6 mg PO HS PRN 08/14/16 02/08/17 NIFEdipine [Afeditab Cr] 90 mg PO DAILY 08/14/16 02/08/17 Nitroglycerin [Nitrostat] 0.4 mg SL Q5M PRN 08/14/16 02/08/17 Pantoprazole Sodium [Protonix] 40 mg PO DAILY 08/14/16 02/08/17 Tamsulosin [Flomax] 0.8 mg PO DAILY 08/14/16 02/08/17 Aspirin [Lo-Dose Aspirin EC] 81 mg PO DAILY 01/07/17 02/08/17 Calcium Acetate [Phos-LO] 667 mg PO TIDWM 01/07/17 02/08/17 Furosemide [Lasix] 60 mg PO DAILY 01/07/17 02/08/17 Ipratropium/Albuterol Neb [Duoneb] 3 ml IH Q4HR PRN 01/07/17 02/08/17 Polyethylene Glycol 3350 [Purelax] 17 gm PO DAILY PRN 01/07/17 02/08/17 Sennosides [Senna] 8.6 mg PO BID PRN 01/07/17 02/08/17 Sertraline [Zoloft] 50 mg PO DAILY 01/07/17 02/08/17 Sodium Bicarbonate 1,300 mg PO BID 01/07/17 02/08/17 Sodium Polystyrene Sulfonate 15 gm PO FR 01/07/17 02/08/17 [Kayexalate] Tramadol HCl [Ultram] 50 mg PO TID PRN 01/07/17 02/08/17 Calcitriol [Rocaltrol] 0.25 mcg PO DAILY 02/08/17 02/08/17 Chlorhexidine Gluconate [Peridex] 15 ml MM BID 02/08/17 02/08/17 CloNIDine Patch [Catapres-TTS] 0.3 mg TD QWEEK 02/08/17 02/08/17 Insulin Glargine,Hum.rec.anlog 12 unit SQ QPM 02/08/17 02/08/17 [Lantus Solostar] LORazepam [Ativan] 0.5 mg PO QID PRN 02/08/17 02/08/17 Loperamide [Imodium] 4 mg PO TID PRN 02/08/17 02/08/17 RisperiDONE [Risperdal] 0.5 mg PO BID PRN 02/08/17 02/08/17 Previous Rx's Medication Instructions Recorded Phenytoin ER [Dilantin ER] 100 mg PO QID #0 08/18/16 Allergies Allergy/AdvReac Type Severity Reaction Status Date / Time No Known Allergies Allergy Verified 08/13/16 23:14 All systems ED: reviewed and negative except as stated. Review of Systems: As Per HPI Constitutional: Denies: fever, chills Eyes: Denies: vision change Cardiovascular: Denies: chest pain Respiratory: Denies: dyspnea Gastrointestinal: Denies: abdominal pain, nausea, vomiting, diarrhea Musculoskeletal: Reports: back pain. Denies: neck pain Integumentary: Denies: rash Neurological: Denies: headache, numbness, confusion Past Medical History - Past Medical History Source: patient Medical history: Reports: coronary artery disease, CVA, diabetes, hyperlipidemia , hypertension, renal disease Surgical history: Reports: non-contributory, pacemaker/AICD, pacemaker Psychiatric history: Reports: anxiety, depression, prior suicide attempt - Social History Smoking Status: Never smoker Smokeless Tobacco Status: No Alcohol use: Reports: none Drug use: Reports: none Physical Exam - General Limitations: no limitations General appearance: alert, in no apparent distress - Head Head exam: atraumatic, normocephalic, normal inspection - Eye Eye exam: Present: normal appearance - ENT ENT exam: mucous membranes moist - Neck Neck exam: Present: normal inspection, full ROM. Absent: tenderness - Chest Chest inspection: Present: symmetric chest wall rise - Respiratory Respiratory exam: Present: normal lung sounds bilaterally - Cardiovascular Cardiovascular exam: Present: regular rate, normal rhythm, normal heart sounds - Abdominal Exam Abdominal exam: Present: soft, Non-Tender - Expanded Lower Extremity Exam Hip/Pelvis exam: Present: normal inspection, tenderness. Absent: full ROM, swelling, abrasion, laceration, ecchymosis, deformity, crepitus, dislocation, erythema, external rotation, internal rotation, shortening Upper leg exam: Present: normal inspection, tenderness. Absent: full ROM, swelling, abrasion, laceration, ecchymosis, deformity, crepitus, dislocation, erythema Knee exam: Present: normal inspection, full ROM Lower leg exam: Present: normal inspection, full ROM Ankle exam: Present: normal inspection, full ROM Foot/toe exam: Present: normal inspection, full ROM Neurovascular/Tendon exam: Present: normal capillary refill, normal 2-point discrimination, normal fine/light touch. Absent: pulse deficit, motor deficit, sensory deficit, tendon deficit, extremity cold to touch, pallor Gait: not tested/not observed - Back Exam Back exam: Present: normal inspection, tenderness (Lumbar paraspinal muscle tenderness), muscle spasm (Lumbar), paraspinal tenderness (Lumbar). Absent: full ROM, CVA tenderness (R), CVA tenderness (L), vertebral tenderness, sciatic notch tenderness (R), sciatic notch tenderness (L) - Neurological Exam Neurological exam: Present: alert, oriented X3 - Psychiatric Psychiatric exam: Present: normal affect, normal mood - Skin Skin exam: Present: warm, dry, intact, normal color. Absent: rash, cyanosis, diaphoresis Course Course Narrative: Patient is a 77-year-old male who was currently an inpatient at the [facility] that presents to the ED via EMS for left hip pain s/p mechanical fall. According to patient as he was moving from the bed to the wheelchair he fell and landed on his left hip[facility] to [facility] concerned for a possible left hip fracture. Patient is complaining of left hip and tailbone pain status post fall. He denies hitting his head, LOC, neck pain, weakness, chest pain, shortness of breath, nausea, vomiting, abdominal pain or any other symptoms/complaints/injuries. Patient is a 77-year-old male. Vital stable. Afebrile. Alert and oriented 3. Appears uncomfortable on examination. Head normocephalic. No signs of external trauma. Eyes normal inspection. PERRL. Extraocular movements intact. ENT within normal limits. Neck supple, full range of motion, nontender. Back normal inspection. Lumbar paraspinal muscle tenderness with palpation. No CVA or vertebral point tenderness with palpation. Extremity: normal inspection of left lower extremity. No obvious deformity or shortening appreciated. Pt laying on right hip. Reproducible pain with palpation to left hip. Reproducible pain with palpation to left upper femur. Decreased range of motion secondary to pain. Motor, sensation and distal pulses intact. Normal cap refill. Xray shows: Acute fractures of the left ischium and medial left acetabular wall. No acute fracture identified in the lumbar spine or sacrum. Discussed case with on-call orthopedist Dr. Can. He requested it for us to admit to medicine and for them to consult Ortho. He stated they will evaluate him tomorrow in the hospital and if he needs surgery they will ship him out. Discussed case with Dr. scott. He accepted patient. He is requesting that I put in a EKG and chest x-ray order in. EKG ventricular paced Pain improved after pain medication. Pt stable to be transferred to the floor Dr. Salazar had [id number] time with patient and agrees with my assessment and treatment plan. Vital Signs Temperature 97.9 F 05/21/17 02:19 Pulse Rate 64 05/21/17 02:19 Respiratory Rate 18 05/21/17 02:19 Blood Pressure 174/88 05/21/17 02:19 O2 Sat by Pulse Oximetry 96 05/21/17 02:19 Temperature 97.9 F 05/21/17 02:19 Pulse Rate 61 05/21/17 04:22 Respiratory Rate 16 05/21/17 04:22 Blood Pressure 150/110 05/21/17 04:22 O2 Sat by Pulse Oximetry 99 05/21/17 04:22 Oxygen Delivery Oxygen Delivery Nasal Cannula Extremity Injury, Lower - Medical Records Medical records reviewed: Yes I reviewed the patient's medical records. - Radiology Data Radiology results reviewed: Yes I reviewed the patient's radiology results.
--- NOTE | 2017-05-21 03:15 | Emergency Department Note ---
START Narrative - START START: I examined this patient and my medical decision-making was reviewed with the Resident Physician. I agree with the documented findings, disposition and treatment plan as described except to the extent set forth below. 77 yo M found sitting down on floor at [facility] and was sent to ER for concerns for left hip fx. on x ray, he has an acute acetabular fx and acute Left ischium fx. will consult with Ortho to see if they will keep this patient here with this fx no reports of head or neck injury
[2017-05-21] MEDS ORDERED: *HR* OxyCODONE/APAP 5/325 TABLET PO ONE (04:09)
[2017-05-21] MEDS ORDERED: *HR* HYDROmorphone (PF) 1 MG/ML SYRINGE IVP ONE (04:14)
[2017-05-21] MEDS ORDERED: Dextrose Gel 15 GM PO PRN ×2 (06:22)
[2017-05-21] MEDS ORDERED: *HR* Dextrose 50 % in Water (Syg) 50 ML SYRINGE IVP PRN (06:22)
[2017-05-21] MEDS ORDERED: D5% in Water 1,000 ML IVC PRN (06:22)
--- NOTE | 2017-05-21 08:07 | Internal Med History&Physical ---
Date of Encounter: 05/21/17 Time of Encounter: 08:05 Assessment and Plan (1) CKD (chronic kidney disease) stage 4, GFR 15-29 ml/min Current visit: No Status: Chronic (2) Seizure, grand mal Current visit: No Status: Acute Continue phenytoin and Depakote (3) Acetabulum fracture Current visit: Yes Status: Acute After mechanical fault. Orthopedic consultation. PT OT and social work consult Qualifiers: Encounter type: initial encounter Sublocation of acetabulum: medial wall Fracture type: closed Fracture alignment: nondisplaced Laterality: left Qualified Code(s): S32.475A - Nondisplaced fracture of medial wall of left acetabulum, initial encounter for closed fracture (4) Urinary tract infection Current visit: Yes Status: Acute Ceftriaxone. Check urine culture Qualifiers: Qualified Code(s): N39.0 - Urinary tract infection, site not specified; R31.9 - Hematuria, unspecified; R31.9 - Hematuria, unspecified Internal Medicine - H&P: HPI Chief complaint: fall History of present illness: Mr. Castro is a 77 year old male with dementia and multiple medical problems who lives in a residential presents to the emergency room today after a fall. Patient was attempting to get from bed to chair lost his balance and fell on his left side. He started having pain in the left hip area with difficulty weight-bearing. Imaging and emergency room showed pelvic fracture. he denies that trauma. He denies loss of consciousness chest pain palpitations. He denies any recent febrile illness. He denies any focal upper or lower extremity weakness facial symmetry or speech sluriness. Past Med Surg Social Fam HX - Past Medical History Medical history: coronary artery disease, CVA, diabetes, hyperlipidemia, hypertension, renal disease, seizures Psychiatric history: anxiety, depression, prior suicide attempt - Past Surgical History Surgical History: non-contributory, angioplasty/stent, pacemaker/AICD, pacemaker - Social History Smoking Status: Never smoker Smokeless Tobacco Status: No Alcohol use: none Drug use: none Internal Medicine - H&P: Meds Carvedilol [Coreg] 25 mg PO BID 08/14/16 [History] Cyanocobalamin (Vitamin B-12) [Vitamin B-12] 1,000 mcg PO MOWEFR 08/14/16 [ History] Finasteride [Proscar] 5 mg PO DAILY 08/14/16 [History] Hydralazine HCl 100 mg PO TID 08/14/16 [History] Insulin ASPART [NovoLOG] 0 unit SQ TID PRN 08/14/16 [History] Isosorbide MONOnitrate [Isosorbide Mononitrate ER] 30 mg PO BID 08/14/16 [ History] Melatonin 6 mg PO HS PRN 08/14/16 [History] Nitroglycerin [Nitrostat] 0.4 mg SL Q5M PRN 08/14/16 [History] Pantoprazole Sodium [Protonix] 40 mg PO DAILY 08/14/16 [History] Tamsulosin [Flomax] 0.8 mg PO DAILY 08/14/16 [History] Aspirin [Lo-Dose Aspirin EC] 81 mg PO DAILY 01/07/17 [History] Calcium Acetate [Phos-LO] 667 mg PO TIDWM 01/07/17 [History] Furosemide [Lasix] 40 mg PO DAILY 01/07/17 [History] Polyethylene Glycol 3350 [Purelax] 17 gm PO DAILY PRN 01/07/17 [History] Sennosides [Senna] 8.6 mg PO BID PRN 01/07/17 [History] CloNIDine Patch [Catapres-TTS] 0.3 mg TD QWEEK 02/08/17 [History] RisperiDONE [Risperdal] 0.5 mg PO BID PRN 02/08/17 [History] Acetaminophen [Tylenol] 650 mg PO Q6HR 05/21/17 [History] Cholecalciferol (D-3) [Vitamin D] 1,000 unit PO DAILY 05/21/17 [History] Docusate Sodium [Dok] 100 mg PO BID PRN 05/21/17 [History] Epoetin Jakub [Procrit] 10,000 unit IJ MOWEFR 05/21/17 [History] Ferrous Sulfate [Iron] 325 mg PO DAILY 05/21/17 [History] Gemfibrozil [Lopid] 600 mg PO QAM 05/21/17 [History] Insulin DETEMIR [Levemir Flextouch] 0 unit SQ HS PRN 05/21/17 [History] Ipratropium/Albuterol Neb [Duoneb] 3 ml IH Q4HR 05/21/17 [History] LORazepam [Ativan] 1 mg PO Q6H PRN 05/21/17 [History] Lurasidone [Latuda] 40 mg PO DAILY 05/21/17 [History] Omeprazole [PriLOSEC] 20 mg PO DAILY 05/21/17 [History] Phenytoin ER [Dilantin ER] 100 mg PO TID 05/21/17 [History] Sertraline [Zoloft] 100 mg PO DAILY 05/21/17 [History] Valproic Acid Oral Soln [Depakene Oral Soln] 500 mg PO BID 05/21/17 [History] 3 Allergy/AdvReac Type Severity Reaction Status Date / Time dipyridamole AdvReac See Verified 05/21/17 14:04 Comments niacin AdvReac See Verified 05/21/17 14:04 Comments simvastatin AdvReac See Verified 05/21/17 14:04 Comments All Systems PM: A 10-system review of systems was performed and is negative for pertinent findings except as documented above in the HPI. Review of systems: 10 point review of systems is negative except for HPI - Constitutional Vitals: Temp Pulse Resp BP Pulse Ox 98.1 F 64 16 166/75 97 05/21/17 05:45 05/21/17 05:45 05/21/17 05:45 05/21/17 05:45 05/21/17 05:45 Exam: Gen.: patient is alert no distress cardiac: normal S1 S2 no additional sounds or murmurs chest: no active wheezing or bronchial breathing abdomen soft nontender nondistended normal bowel sounds. Barrett catheter in place lower extremity no swelling. Pain with ROM of left lower extrremity Neuro: no new focal deficits Internal Med - H&P Results - Labs CBC & Chem 7: 05/21/17 08:06 05/21/17 08:06
[2017-05-21] MEDS: Insulin LISPRO 300 UNITS/3 ML VIAL SQ SCH ×3 (08:16→17:00)
[2017-05-21] MEDS: *HR* OxyCODONE Immed Rel 5 MG TABLET PO PRN ×2 (08:17→18:44)
[2017-05-21 08:26] LABS: Basophils % 0.1 %; Immature Granulocytes % 0.4 % (0-4)
[2017-05-21 08:28] LABS: Eosinophils # 0.2 K/mcL (0.0-0.6); Eosinophils % 3.4 %; Hematocrit 33.1 % (37.5-50.1); Hemoglobin 10.6 g/dL (12.9-16.9); Immature Platelets 3.1 % (1.1-6.1); Lymphocytes # 0.7 K/mcL (0.6-4.6); Lymphocytes % 9.9 %; Mean Corpuscular Hemoglobin 34.6 pg (28.0-33.3); Mean Corpuscular Volume 108.2 fL (83.0-100.0); Mean Platelet Volume 11.1 fL (9.4-12.4); Monocytes # 0.7 K/mcL (0.0-1.3); Monocytes % 9.9 %; Neutrophils # 5.2 K/mcL (1.6-8.9); Red Blood Count 3.06 M/mcL (4.19-5.50); Red Cell Distribution Width 15.7 % (11.5-14.5); Segmented Neutrophils % 76.3 %
[2017-05-21 08:30] LABS: INR 1.1; Prothrombin Time 12.2 Seconds (9.4-12.1)
[2017-05-21 08:33] LABS: Activated Partial Thrombo Time 38.6 Seconds (26.0-36.0)
[2017-05-21 08:40] LABS: Albumin 2.5 g/dL (3.5-5.0); Albumin/Globulin Ratio 0.7 (1.1-2.2); Bilirubin,Total 0.3 mg/dL (0.2-1.2); Calcium 8.9 mg/dL (8.6-10.8); Globulin 3.6 g/dL (2.4-3.5); Magnesium 2.3 mg/dL (1.6-2.6); Potassium 4.5 mEq/L (3.5-4.5); Total Protein 6.1 g/dL (6.0-8.3)
--- NOTE | 2017-05-21 09:55 | Electrocardiograph Report ---
[place] [id number] Test Date: 2017-05-21 Pat Name: Noel Castro Department: 103 Room: [facility] Gender: M Recruiter: : 1940 Requested By: Raysa Sanders Order Number: [id number] Reading MD: Araceli Renteria Measurements Intervals Combs Rate: 61 P: 58 OK: 155 QRS: 241 QRSD: 164 T: 88 QT: 525 QTc: 527 Interpretive Statements ELECTRONIC VENTRICULAR PACEMAKER ABNORMAL RHYTHM ECG Electronically Signed On 05-21-2017 9:53:56 EDT by Araceli Renteria
[2017-05-21 10:06] LABS: Platelet Count 68 K/mcL (140-400)
[2017-05-21 10:11] LABS: Platelet Estimate Decreased (Normal)
--- NOTE | 2017-05-21 10:51 | Orthopedic Consult Note ---
Date of Encounter: 05/21/17 Time of Encounter: 10:24 Assessment and Plan (1) Acetabulum fracture Current Visit: Yes Status: Acute The fracture is minimally displaced and well-aligned. We will treat this non- operatively. -TDWB of the LLE -Pain control -Ok for TDWB for transfers to wheelchair -Will s/o, follow up in office in 2 weeks for repeat x-rays Qualifiers: Encounter type: initial encounter Sublocation of acetabulum: medial wall Fracture type: closed Fracture alignment: nondisplaced Laterality: left Qualified Code(s): S32.475A - Nondisplaced fracture of medial wall of left acetabulum, initial encounter for closed fracture History of Present Illness Chief complaint: L hip pain HPI: Mr. Castro is a 77 year old male with a history of multiple strokes affecting his right side, who fell transferring from his wheelchair last night. He was admitted to the hospital after imaging noted a minimally displaced left acetabular fracture. He has pain in the left groin area that radiates down his medial thigh. Denies pain in his other extremities. Past Med Surg Social Fam HX - Past Medical History Medical history: coronary artery disease, CVA, diabetes, hyperlipidemia, hypertension, renal disease, seizures Psychiatric history: anxiety, depression, prior suicide attempt - Past Surgical History Surgical History: non-contributory, angioplasty/stent, pacemaker/AICD, pacemaker - Social History Smoking Status: Never smoker Smokeless Tobacco Status: No Alcohol use: none Drug use: none Medications and Allergies Atorvastatin [Lipitor] 40 mg PO HS 08/14/16 [History] Carvedilol [Coreg] 25 mg PO BID 08/14/16 [History] Cyanocobalamin (Vitamin B-12) [Vitamin B-12] 500 mcg PO DAILY 08/14/16 [History] Dextran 70/Hypromellose [Natural Balance Tears Eye Drop] 1 drop BOTH EYES QID PRN 08/14/16 [History] Ferrous Gluconate 325 mg PO DAILY 08/14/16 [History] Finasteride [Proscar] 5 mg PO DAILY 08/14/16 [History] Hydralazine HCl 100 mg PO TID 08/14/16 [History] Insulin ASPART [NovoLOG] 3 - 8 unit SQ TID MDD PER SLIDING SCALE 08/14/16 [ History] Isosorbide MONOnitrate [Isosorbide Mononitrate ER] 30 mg PO BID 08/14/16 [ History] Melatonin 6 mg PO HS PRN 08/14/16 [History] NIFEdipine [Afeditab Cr] 90 mg PO DAILY 08/14/16 [History] Nitroglycerin [Nitrostat] 0.4 mg SL Q5M PRN 08/14/16 [History] Pantoprazole Sodium [Protonix] 40 mg PO DAILY 08/14/16 [History] Tamsulosin [Flomax] 0.8 mg PO DAILY 08/14/16 [History] Phenytoin ER [Dilantin ER] 100 mg PO QID #0 08/18/16 [Rx] Aspirin [Lo-Dose Aspirin EC] 81 mg PO DAILY 01/07/17 [History] Calcium Acetate [Phos-LO] 667 mg PO TIDWM 01/07/17 [History] Furosemide [Lasix] 60 mg PO DAILY 01/07/17 [History] Ipratropium/Albuterol Neb [Duoneb] 3 ml IH Q4HR PRN 01/07/17 [History] Polyethylene Glycol 3350 [Purelax] 17 gm PO DAILY PRN 01/07/17 [History] Sennosides [Senna] 8.6 mg PO BID PRN 01/07/17 [History] Sertraline [Zoloft] 50 mg PO DAILY 01/07/17 [History] Sodium Bicarbonate 1,300 mg PO BID 01/07/17 [History] Sodium Polystyrene Sulfonate [Kayexalate] 15 gm PO FR 01/07/17 [History] Tramadol HCl [Ultram] 50 mg PO TID PRN 01/07/17 [History] Calcitriol [Rocaltrol] 0.25 mcg PO DAILY 02/08/17 [History] Chlorhexidine Gluconate [Peridex] 15 ml MM BID 02/08/17 [History] CloNIDine Patch [Catapres-TTS] 0.3 mg TD QWEEK 02/08/17 [History] Insulin Glargine,Hum.rec.anlog [Lantus Solostar] 12 unit SQ QPM 02/08/17 [ History] LORazepam [Ativan] 0.5 mg PO QID PRN 02/08/17 [History] Loperamide [Imodium] 4 mg PO TID PRN 02/08/17 [History] RisperiDONE [Risperdal] 0.5 mg PO BID PRN 02/08/17 [History] 3 Allergy/AdvReac Type Severity Reaction Status Date / Time No Known Allergies Allergy Verified 08/13/16 23:14 All Systems Reviewed: A 10-system review of systems was performed and is negative for pertinent findings except as documented above in the HPI. Physical Exam - Constitutional Vitals: Temp Pulse Resp BP Pulse Ox 98.1 F 64 16 166/75 97 05/21/17 05:45 05/21/17 05:45 05/21/17 05:45 05/21/17 05:45 05/21/17 05:45 Exam: Consult Exam: Constitutional -Vitals reviewed -The patient is well developed and well nourished. -Mood is pleasant. Psychiatric -The patient is fully alert and oriented x 3. Respiratory: -Respiratory effort normal Abdomen: -Soft abdomen -Non tender -Non distended: Left upper extremity: -No deformities. The overlying skin is intact. No obvious signs of acute trauma. -No tenderness to palpation throughout. -No significant pain with passive motion of the shoulder, elbow, wrist, and fingers within the limits of the bed. -Able to make an "OK" sign, cross the index and long fingers, and extend the thumb. -Sensation grossly intact to light touch throughout the median, radial, and ulnar distributions. -Radial pulse is present; Fingers have good capillary refill. Right upper extremity: -No deformities. The overlying skin is intact. No obvious signs of acute trauma. -No tenderness to palpation throughout. -No significant pain with passive motion of the shoulder, elbow, wrist, and fingers within the limits of the bed. -Able to make an "OK" sign, cross the index and long fingers, and extend the thumb. -Sensation diminished over the right upper extremity chronically secondary to stroke -Radial pulse is present; Fingers have good capillary refill. Left lower extremity: -No deformities. The overlying skin is intact. No obvious signs of acute trauma. -Moderate TTP over medial thigh -Pain with PROM of the left hip -Pain with axial loading of the thigh. -Able to dorsiflex and plantarflex the ankle and toes. -Sensation is grossly intact to light touch throughout the sural, saphenous, superficial peroneal, and deep peroneal distributions. -Toes have good capillary refill. Right lower extremity: -No deformities. The overlying skin is intact. No obvious signs of acute trauma. -No tenderness to palpation throughout. -No pain with passive motion of the hip, knee, ankle, and toes within the limits of the bed. -No pain with axial loading of the thigh. -Able to dorsiflex and plantarflex the ankle and toes weakly secondary to stroke. -Sensation is diminished secondary to previous stroke. -Toes have good capillary refill. Results - Labs Result Diagrams: 05/21/17 08:06 05/21/17 08:06 Labs: Abnormal lab results RBC 3.06 M/mcL (4.19-5.50) L 05/21/17 08:06 Hgb 10.6 g/dL (12.9-16.9) L 05/21/17 08:06 Hct 33.1 % (37.5-50.1) L 05/21/17 08:06 MCV 108.2 fL (83.0-100.0) H 05/21/17 08:06 MCH 34.6 pg (28.0-33.3) H 05/21/17 08:06 RDW 15.7 % (11.5-14.5) H 05/21/17 08:06 Plt Count 68 K/mcL (140-400) L 05/21/17 08:06 Platelet Estimate Decreased (Normal) L 05/21/17 08:06 PT 12.2 Seconds (9.4-12.1) H 05/21/17 08:06 APTT 38.6 Seconds (26.0-36.0) H 05/21/17 08:06 BUN 68 mg/dL (8-26) H 05/21/17 08:06 Creatinine 3.50 mg/dL (0.72-1.25) H 05/21/17 08:06 Est GFR ( Amer) 21 (> 60) L 05/21/17 08:06 Est GFR (Non-Af Amer) 17 (> 60) L 05/21/17 08:06 Glucose 154 mg/dL (70-99) H 05/21/17 08:06 Calculated Osmolality 317 (280-300) H 05/21/17 08:06 Alkaline Phosphatase 140 Units/L (38-126) H 05/21/17 08:06 Creatine Kinase 27 Units/L (30-200) L 05/21/17 08:06 Albumin 2.5 g/dL (3.5-5.0) L 05/21/17 08:06 Globulin 3.6 g/dL (2.4-3.5) H 05/21/17 08:06 Albumin/Globulin Ratio 0.7 (1.1-2.2) L 05/21/17 08:06 H & H 05/21/17 Range/Units 08:06 Hgb 10.6 L (12.9-16.9) g/dL Hct 33.1 L (37.5-50.1) % All other labs normal. - Diagnostic results Hip x-ray: report reviewed, image reviewed (minimally displaced fx of medial wall of acetabulum and left ilium, hip OA) Consult Discharge Plan - Plan Additional Instructions: Touchdown weight bearing of the left lower extremity Follow up in office in [address] Can, [facility]errals: [facility]Primary Care Provider[facility] -
[2017-05-21] MEDS: *HR* Morphine 2 MG/ML SYRINGE IVP PRN ×3 (11:00→23:50)
[2017-05-21 12:46] LABS: Bilirubin,Urine Negative (Negative); Blood,Urine Trace (Negative); Clarity,Urine Cloudy (Clear); Color,Urine Yellow (Yellow); Glucose,Urine (UA) Normal (Normal); Ketones,Urine Negative (Negative); Leukocyte Esterase,Urine Large (Negative); Nitrite,Urine Positive (Negative); PH,Urine 5.5 pH Units (5.0-8.0); Protein,Urine 100 mg/dL (Neg-Trace); Specific Gravity,Urine 1.019 (1.010-1.025); Urobilinogen,Urine Normal (Normal)
[2017-05-21 12:48] LABS: Bacteria,Urine Many per hpf (None-Few); Hyaline Casts,Urine None Seen per lpf (None-Few); Squamous Epithelial Cell,Urine Few per lpf (None-Few); WBC,Urine TNTC per hpf (0-3)
[2017-05-21 12:59] LABS: Yeast,Urine Few per hpf (None Seen)
[2017-05-21] MEDS ORDERED: risperiDONE 0.25 MG TABLET PO PRN (14:43)
[2017-05-21] MEDS ORDERED: *HR* LORazepam 1 MG TABLET PO PRN (14:43)
[2017-05-21] MEDS ORDERED: Sennosides 8.6 MG TABLET PO PRN (14:43)
[2017-05-21] MEDS ORDERED: 0.9 % Sodium Chloride 1,000 ML IVC SCH ×2 (14:45→14:46)
[2017-05-21] MEDS ORDERED: CloNIDine Patch 0.3 MG PATCH (WEEKLY) TD SCH (14:45)
[2017-05-21] MEDS ORDERED: cefTRIAXone 1,000 MG in Water for inj. (sterile) 10 ML IVP SCH (15:00)
[2017-05-21] MEDS: hydrALAZINE 25 MG TABLET PO SCH ×2 (16:07→20:36)
[2017-05-21] MEDS: Ipratropium/Albuterol Neb 3 ML IH SCH ×3 (16:27→23:24)
[2017-05-21] MEDS: Valproic Acid Oral Soln 250 MG/5 ML UDC PO SCH (20:36)
[2017-05-21] MEDS: Isosorbide MONOnitrate (24 HR) 30 MG TAB.ER.24H PO SCH (20:36)
[2017-05-21] MEDS ORDERED: Insulin LISPRO 300 UNITS/3 ML VIAL SQ SCH (21:00)
[2017-05-22] MEDS: Ipratropium/Albuterol Neb 3 ML IH SCH ×3 (03:21→11:02)
[2017-05-22] MEDS: Insulin LISPRO 300 UNITS/3 ML VIAL SQ SCH ×2 (08:36→12:16)
[2017-05-22] MEDS: hydrALAZINE 25 MG TABLET PO SCH (08:37)
[2017-05-22] MEDS: Isosorbide MONOnitrate (24 HR) 30 MG TAB.ER.24H PO SCH (08:37)
[2017-05-22] MEDS: *HR* OxyCODONE Immed Rel 5 MG TABLET PO PRN (08:37)
[2017-05-22] MEDS: Valproic Acid Oral Soln 250 MG/5 ML UDC PO SCH (08:38)
[2017-05-22] MEDS ORDERED: Finasteride 5 MG TABLET PO SCH (09:00)
[2017-05-22] MEDS ORDERED: Aspirin Enteric Coated 81 MG Tablet PO SCH (09:00)
[2017-05-22] MEDS ORDERED: CefTRIAXone 1,000 MG VIAL IM ONE (10:57)
[2017-05-22] MEDS ORDERED: MethylPREDNISolone 40 MG/ML VIAL IVP ONE (11:01)
[2017-05-22] MEDS ORDERED: methylPREDNISolone 125 MG/2 ML VIAL IM ONE (11:09)
--- NOTE | 2017-05-22 11:36 | Physician Discharge Referral ---
ExtendedCare Referral Info Institutional Level of Care: Skilled (Need PT/OT) - Diagnosis (1) Ischium fracture Status: Acute (2) Acetabulum fracture Status: Acute (3) Urinary tract infection Status: Acute Prognosis: Good - Transfer Medications Prescriptions: OxyCODONE Immed Rel [Roxicodone 5 MG] 5 mg PO Q6HR PRN #30 tablet PRN Reason: Moderate Pain Cefuroxime Axetil [Cefuroxime] 500 mg PO DAILY 7 Days #7 tablet Ergocalciferol (VITAMIN D2) [Drisdol (50,000 Unit)] 50,000 unit PO QWEEK #20 capsule Ferrous Gluconate 324 mg PO DAILY #90 tablet Folic Acid 1 mg PO DAILY #90 tablet Thiamine (B-1) [Vitamin B-1] 200 mg PO DAILY #180 tablet Home Medications: Carvedilol [Coreg] 25 mg PO BID 08/14/16 [History] Cyanocobalamin (Vitamin B-12) [Vitamin B-12] 1,000 mcg PO MOWEFR 08/14/16 [ History] Finasteride [Proscar] 5 mg PO DAILY 08/14/16 [History] Hydralazine HCl 100 mg PO TID 08/14/16 [History] Isosorbide MONOnitrate [Isosorbide Mononitrate ER] 30 mg PO BID 08/14/16 [ History] Melatonin 6 mg PO HS PRN 08/14/16 [History] Nitroglycerin [Nitrostat] 0.4 mg SL Q5M PRN 08/14/16 [History] Pantoprazole Sodium [Protonix] 40 mg PO DAILY 08/14/16 [History] Tamsulosin [Flomax] 0.8 mg PO DAILY 08/14/16 [History] Aspirin [Lo-Dose Aspirin EC] 81 mg PO DAILY 01/07/17 [History] Calcium Acetate [Phos-LO] 667 mg PO TIDWM 01/07/17 [History] Furosemide [Lasix] 40 mg PO DAILY 01/07/17 [History] Polyethylene Glycol 3350 [Purelax] 17 gm PO DAILY PRN 01/07/17 [History] Sennosides [Senna] 8.6 mg PO BID PRN 01/07/17 [History] CloNIDine Patch [Catapres-Tts] 0.3 mg TD QWEEK 02/08/17 [History] RisperiDONE [Risperdal] 0.5 mg PO BID PRN 02/08/17 [History] Acetaminophen [Tylenol] 650 mg PO Q6HR 05/21/17 [History] Cholecalciferol (D-3) [Vitamin D] 1,000 unit PO DAILY 05/21/17 [History] Docusate Sodium [Dok] 100 mg PO BID PRN 05/21/17 [History] Epoetin Jakub [Procrit] 10,000 unit IJ MOWEFR 05/21/17 [History] Ferrous Sulfate [Iron] 325 mg PO DAILY 05/21/17 [History] Gemfibrozil [Lopid] 600 mg PO QAM 05/21/17 [History] Ipratropium/Albuterol Neb [Duoneb] 3 ml IH Q4HR 05/21/17 [History] LORazepam [Ativan] 1 mg PO Q6H PRN 05/21/17 [History] Lurasidone [Latuda] 40 mg PO DAILY 05/21/17 [History] Omeprazole [PriLOSEC] 20 mg PO DAILY 05/21/17 [History] Phenytoin ER [Dilantin ER] 100 mg PO TID 05/21/17 [History] Sertraline [Zoloft] 100 mg PO DAILY 05/21/17 [History] Valproic Acid Oral Soln [Depakene Oral Soln] 500 mg PO BID 05/21/17 [History] Cefuroxime Axetil [Cefuroxime] 500 mg PO DAILY 7 Days #7 tablet 05/22/17 [Rx] Ergocalciferol (VITAMIN D2) [Drisdol (50,000 Unit)] 50,000 unit PO QWEEK #20 capsule 05/22/17 [Rx] Ferrous Gluconate 324 mg PO DAILY #90 tablet 05/22/17 [Rx] Folic Acid 1 mg PO DAILY #90 tablet 05/22/17 [Rx] Insulin ASPART [NovoLOG] See Protocol SQ TID PRN #0 05/22/17 [Rx] Insulin DETEMIR [Levemir Flextouch] 5 unit SQ HS PRN #0 05/22/17 [Rx] OxyCODONE Immed Rel [Roxicodone 5 MG] 5 mg PO Q6HR PRN #30 tablet 05/22/17 [Rx] Thiamine (B-1) [Vitamin B-1] 200 mg PO DAILY #180 tablet 05/22/17 [Rx] Allergies/Adverse Reactions: 3 Allergy/AdvReac Type Severity Reaction Status Date / Time dipyridamole AdvReac See Verified 05/21/17 14:04 Comments niacin AdvReac See Verified 05/21/17 14:04 Comments simvastatin AdvReac See Verified 05/21/17 14:04 Comments - Respiratory Orders Smoking Cessation: Smoking cessation has been advised. For more information, call the [place] Tobacco Quit Line at 1-633-JKBZ-NOW. - Lab Orders Lab Orders: Other (include drug levels w/frequency) (Uric acid , Accu check AC/ HS) - Advance Directives Code Status: Full Code - Mobility Orders Ambulate - Rehabiliation Orders Rehab Potential: Good Rehab Orders: Evaluation for Physical Therapy, Evaluation for Occupational Therapy - Diet Orders Renal CERTIFICATION: I certify that the transfer of the above named patient to an Extended Care Facility is necessary for the continuing treatment of the diagnosis listed. The above information is true and accurate reflection of patient's current condition. Confidential - Redisclosure prohibited without a patient's written consent.
[2017-05-22 11:48] LABS: Hemoglobin 10.3 g/dL (12.9-16.9); Immature Platelets 3.2 % (1.1-6.1); Mean Corpuscular HGB Conc 31.2 g/dL (31.6-35.5); Mean Corpuscular Hemoglobin 34.6 pg (28.0-33.3); Mean Corpuscular Volume 110.7 fL (83.0-100.0); Mean Platelet Volume 10.8 fL (9.4-12.4); Red Blood Count 2.98 M/mcL (4.19-5.50); Red Cell Distribution Width 15.4 % (11.5-14.5)
[2017-05-22 11:49] LABS: Platelet Count 61 K/mcL (140-400)
[2017-05-22 12:09] VITALS: BP 161/69
[2017-05-22 12:26] LABS: Basophils # 0.1 K/mcL (0.0-0.2); Eosinophils # 0.6 K/mcL (0.0-0.6); Lymphocytes # 0.9 K/mcL (0.6-4.6); Monocytes # 0.4 K/mcL (0.0-1.3); Neutrophils # 3.5 K/mcL (1.6-8.9); Platelet Estimate Decreased (Normal); Reactive Lymphocytes Present (Not Present)
[2017-05-22 12:27] LABS: Macrocytosis Present (Not Present)
== END 2017-05-22 13:45 | DRG 536 ==
LOC: 3NENU 02:15 → EMEROO 02:15 → 3NENU 05:30
PROVIDERS: ADMIT Internal Medicine; ATTEND Internal Medicine

== ENCOUNTER 2017-11-03 10:49 | Observation (INO) ==
--- NOTE | 2017-11-03 10:57 | Emergency Department Note ---
Disposition Clinical Impression: UTI (urinary tract infection) Qualifiers: Urinary tract infection type: acute cystitis Hematuria presence: without hematuria Qualified Code(s): N30.00 - Acute cystitis without hematuria Nausea & vomiting Qualifiers: Vomiting type: unspecified Vomiting Intractability: unspecified Qualified Code( s): R11.2 - Nausea with vomiting, unspecified Disposition: Admitted As Inpatient Condition: Fair [facility] Provider[facility] - Time of Disposition: 13:28 Abdominal Pain HPI - General Time Seen by Provider: 11/03/17 10:54 Source: patient Mode of arrival: ambulatory Limitations: no limitations Nursing Notes Reviewed: Yes Vital Signs Reviewed: Yes - History of Present Illness HPI Narrative: 77-year-old who [facility] a [facility] who comes in because he has had vomiting and some abdominal pain in the lower abdomen. Patient is alert he is a DNR CC. Apparently an x-ray was done that showed a possible partial bowel obstruction and lab work however the [place] did not send any of that. Pt Subjective Complaint: abdominal pain, other (Nausea vomiting) Onset (ago): day(s) (2) Consistency: intermittent Location: diffuse Pain Severity: moderate Quality: cramping Radiation: none Migration to: no migration Improves with: nothing Worsens with: vomiting Associated symptoms: Reports: nausea, vomiting Treatments prior to arrival: none - Related Data Home Medications Medication Instructions Recorded Confirmed Carvedilol [Coreg] 25 mg PO BID 08/14/16 05/21/17 Cyanocobalamin (Vitamin B-12) 1,000 mcg PO MOWEFR 08/14/16 05/21/17 [Vitamin B-12] Finasteride [Proscar] 5 mg PO DAILY 08/14/16 05/21/17 Hydralazine HCl 100 mg PO TID 08/14/16 05/21/17 Isosorbide MONOnitrate [Isosorbide 30 mg PO BID 08/14/16 05/21/17 Mononitrate ER] Melatonin 6 mg PO HS PRN 08/14/16 05/21/17 Nitroglycerin [Nitrostat] 0.4 mg SL Q5M PRN 08/14/16 05/21/17 Pantoprazole Sodium [Protonix] 40 mg PO DAILY 08/14/16 05/21/17 Tamsulosin [Flomax] 0.8 mg PO DAILY 08/14/16 05/21/17 Aspirin [Lo-Dose Aspirin EC] 81 mg PO DAILY 01/07/17 05/21/17 Calcium Acetate [Phos-LO] 667 mg PO TIDWM 01/07/17 05/21/17 Furosemide [Lasix] 40 mg PO DAILY 01/07/17 05/21/17 Polyethylene Glycol 3350 [Purelax] 17 gm PO DAILY PRN 01/07/17 05/21/17 Sennosides [Senna] 8.6 mg PO BID PRN 01/07/17 05/21/17 CloNIDine Patch [Catapres-Tts] 0.3 mg TD QWEEK 02/08/17 05/21/17 RisperiDONE [Risperdal] 0.5 mg PO BID PRN 02/08/17 05/21/17 Acetaminophen [Tylenol] 650 mg PO Q6HR 05/21/17 05/21/17 Cholecalciferol (D-3) [Vitamin D] 1,000 unit PO DAILY 05/21/17 05/21/17 Docusate Sodium [Dok] 100 mg PO BID PRN 05/21/17 05/21/17 Epoetin Jakub [Procrit] 10,000 unit IJ MOWEFR 05/21/17 05/21/17 Ferrous Sulfate [Iron] 325 mg PO DAILY 05/21/17 05/21/17 Gemfibrozil [Lopid] 600 mg PO QAM 05/21/17 05/21/17 Ipratropium/Albuterol Neb [Duoneb] 3 ml IH Q4HR 05/21/17 05/21/17 LORazepam [Ativan] 1 mg PO Q6H PRN 05/21/17 05/21/17 Lurasidone [Latuda] 40 mg PO DAILY 05/21/17 05/21/17 Omeprazole [PriLOSEC] 20 mg PO DAILY 05/21/17 05/21/17 Phenytoin ER [Dilantin ER] 100 mg PO TID 05/21/17 05/21/17 Sertraline [Zoloft] 100 mg PO DAILY 05/21/17 05/21/17 Valproic Acid Oral Soln [Depakene 500 mg PO BID 05/21/17 05/21/17 Oral Soln] Previous Rx's Medication Instructions Recorded Cefuroxime Axetil [Cefuroxime] 500 mg PO DAILY 7 Days #7 tablet 05/22/17 Ergocalciferol (VITAMIN D2) 50,000 unit PO QWEEK #20 capsule 05/22/17 [Drisdol (50,000 Unit)] Ferrous Gluconate 324 mg PO DAILY #90 tablet 05/22/17 Folic Acid 1 mg PO DAILY #90 tablet 05/22/17 Insulin ASPART [NovoLOG] See Protocol SQ TID PRN #0 05/22/17 Insulin DETEMIR [Levemir Flextouch] 5 unit SQ HS PRN #0 05/22/17 OxyCODONE Immed Rel [Roxicodone 5 5 mg PO Q6HR PRN #30 tablet 05/22/17 MG] Thiamine (B-1) [Vitamin B-1] 200 mg PO DAILY #180 tablet 05/22/17 Allergies Allergy/AdvReac Type Severity Reaction Status Date / Time dipyridamole AdvReac See Verified 05/21/17 14:04 Comments niacin AdvReac See Verified 05/21/17 14:04 Comments simvastatin AdvReac See Verified 05/21/17 14:04 Comments All systems ED: reviewed and negative except as stated. Constitutional: Denies: fever, chills, weakness, weight change Eyes: Denies: eye pain, eye discharge, vision change ENT ED: Denies: ear pain, throat pain, dental pain, hearing loss, epistaxis, congestion, dysphagia Cardiovascular: Denies: chest pain, palpitations, dyspnea on exertion, edema, syncope Respiratory: Denies: cough, dyspnea, wheezes, hemoptysis, stridor Gastrointestinal: Reports: abdominal pain, nausea, vomiting. Denies: diarrhea, constipation, hematemesis, melena, hematochezia Genitourinary: Denies: urgency, dysuria, frequency, hematuria Musculoskeletal: Denies: back pain, neck pain, arthralgia, myalgia Integumentary: Denies: rash, abrasion, lesions Neurological: Denies: headache, weakness, numbness, paresthesias, confusion, abnormal gait, vertigo Psychiatric: Denies: anxiety, depression, suicidal thoughts, homicidal thoughts , auditory hallucinations, visual hallucinations Endocrine: Denies: fatigue Hematological/Lymphatic: Denies: easy bleeding, easy bruising Allergic/Immunologic: Denies: facial swelling, urticaria Abdominal Pain PMH - Past Medical History Medical history: Reports: coronary artery disease, CVA, diabetes, hyperlipidemia , hypertension, renal disease, seizures Male Surgical History: Reports: angioplasty/stent, pacemaker/AICD Psychiatric history: Reports: anxiety, depression, prior suicide attempt - Social History Smoking status: Never smoker Alcohol use: Reports: none Drug use: Reports: none Physical Exam - General Limitations: no limitations General appearance: alert, in no apparent distress - Head Head exam: atraumatic, normocephalic, normal inspection - Eye Eye exam: Present: normal appearance, PERRL, EOMI - ENT ENT exam: normal exam, normal oropharynx, mucous membranes moist - Neck Neck exam: Present: normal inspection, full ROM, trachea midline - Chest Chest inspection: Present: normal inspection, symmetric chest wall rise - Respiratory Respiratory exam: Present: normal lung sounds bilaterally - Cardiovascular Cardiovascular exam: Present: regular rate, normal rhythm, normal heart sounds - Abdominal Exam Abdominal exam: Present: soft, tenderness. Absent: distention, guarding, rebound, rigidity Abdominal tenderness: Present: diffuse - Extremities Exam Extremities exam: Present: normal inspection, full ROM. Absent: tenderness, pedal edema - Expanded Lower Extremity Exam Neurovascular/Tendon exam: Absent: motor deficit, sensory deficit, tendon deficit Gait: not tested/not observed - Back Exam Back exam: Present: normal inspection, full ROM. 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 Patient also has evidence of UTI. She will be admitted. Time: 13:26 - Consultations Consultation #1: Discussed with Dr. Cruz, admit. Time: 13:27 Vital Signs Temperature 98.5 F 11/03/17 10:55 Pulse Rate 65 11/03/17 10:55 Respiratory Rate 18 11/03/17 10:55 Blood Pressure 146/72 11/03/17 10:55 O2 Sat by Pulse Oximetry 94 11/03/17 10:55 Temperature 98.5 F 11/03/17 10:55 Pulse Rate 64 11/03/17 12:48 Respiratory Rate 13 11/03/17 12:48 Blood Pressure 125/62 11/03/17 12:48 O2 Sat by Pulse Oximetry 99 11/03/17 12:48 Oxygen Delivery Oxygen Delivery Room Air Abdominal Pain - Lab Data Lab results reviewed: Yes I reviewed the patient's lab results. Result diagrams: 11/03/17 11:10 11/03/17 11:10 Lab Results 11/03/17 11/03/17 11/03/17 Range/Units 11:10 11:10 11:36 WBC 13.5 H (4.3-11.1) K/mcL RBC 2.90 L (4.19-5.50) M/mcL Hgb 10.0 L (12.9-16.9) g/dL Hct 31.6 L (37.5-50.1) % MCV 109.0 H (83.0-100.0) fL MCH 34.5 H (28.0-33.3) pg MCHC 31.6 (31.6-35.5) g/dL RDW 16.4 H (11.5-14.5) % Plt Count 73 L (140-400) K/mcL MPV 10.9 (9.4-12.4) fL Immature Gran % 0.4 (0-4) % Seg Neutrophils % 79.3 % Lymphocytes % 8.6 % Monocytes % 10.7 % Eosinophils % 0.9 % Basophils % 0.1 % Neutrophils # 10.7 H (1.6-8.9) K/mcL Lymphocytes # 1.2 (0.6-4.6) K/mcL Monocytes # 1.4 H (0.0-1.3) K/mcL Eosinophils # 0.1 (0.0-0.6) K/mcL Basophils # 0.0 (0.0-0.2) K/mcL Platelet Estimate Decreased L (Normal) Immature Plt Fraction 1.6 (1.1-6.1) % Sodium 143 (136-145) mEq/L Potassium 4.1 (3.5-5.1) mEq/L Chloride 104 (98-107) mEq/L Carbon Dioxide 29 (23-29) mEq/L BUN 81 H (8-23) mg/dL Creatinine 3.38 H (0.70-1.30) mg/dL Est GFR ( Amer) 22 L (> 60) Est GFR (Non-Af Amer) 18 L (> 60) BUN/Creatinine Ratio 24 (6-26) Glucose 105 (70-105) mg/dL Calculated Osmolality 321 H (280-300) Lactic Acid (0.5-2.2) mmol/L Calcium 10.0 (8.6-10.3) mg/dL Total Bilirubin 0.4 (0.3-1.0) mg/dL Direct Bilirubin 0.2 (0.0-0.2) mg/dL Indirect Bilirubin 0.2 (0.0-1.2) mg/dL AST 18 (13-39) Units/L ALT 8 (7-52) Units/L Alkaline Phosphatase 112 H (34-104) Units/L Serum Total Protein 6.4 (6.4-8.9) g/dL Albumin 3.5 (3.5-5.7) g/dL Globulin 2.9 (2.4-3.5) g/dL Albumin/Globulin Ratio 1.2 (1.1-2.2) Amylase 66 (29-103) Units/L Lipase 77 (11-82) Units/L Urine Color Yellow (Yellow) Urine Clarity Cloudy A (Clear) Urine pH 6.0 (5.0-8.0) pH Units Ur Specific [place] 1.020 (1.010-1.025) Urine Protein 100 H (Neg-Trace) mg/dL Urine Glucose (UA) Normal (Normal) mg/dL Urine Ketones Negative (Negative) mg/dL Urine Blood Negative (Negative) Urine Nitrite Negative (Negative) Urine Bilirubin Negative (Negative) Urine Urobilinogen Normal (Normal) mg/dL Ur Leukocyte Esterase Large H (Negative) Urine Microscopic RBC 5-15 H (0-3) per hpf Urine Microscopic WBC TNTC H (0-3) per hpf Ur Squamous Epith Cells Few (None-Few) per lpf Urine Bacteria Moderate H (None-Few) per hpf Hyaline Casts Few (None-Few) per lpf Ur Culture Indicated? YES A (NO) 11/03/17 Range/Units 12:57 WBC (4.3-11.1) K/mcL RBC (4.19-5.50) M/mcL Hgb (12.9-16.9) g/dL Hct (37.5-50.1) % MCV (83.0-100.0) fL MCH (28.0-33.3) pg MCHC (31.6-35.5) g/dL RDW (11.5-14.5) % Plt Count (140-400) K/mcL MPV (9.4-12.4) fL Immature Gran % (0-4) % Seg Neutrophils % % Lymphocytes % % Monocytes % % Eosinophils % % Basophils % % Neutrophils # (1.6-8.9) K/mcL Lymphocytes # (0.6-4.6) K/mcL Monocytes # (0.0-1.3) K/mcL Eosinophils # (0.0-0.6) K/mcL Basophils # (0.0-0.2) K/mcL Platelet Estimate (Normal) Immature Plt Fraction (1.1-6.1) % Sodium (136-145) mEq/L Potassium (3.5-5.1) mEq/L Chloride (98-107) mEq/L Carbon Dioxide (23-29) mEq/L BUN (8-23) mg/dL Creatinine (0.70-1.30) mg/dL Est GFR ( Amer) (> 60) Est GFR (Non-Af Amer) (> 60) BUN/Creatinine Ratio (6-26) Glucose (70-105) mg/dL Calculated Osmolality (280-300) Lactic Acid 1.7 (0.5-2.2) mmol/L Calcium (8.6-10.3) mg/dL Total Bilirubin (0.3-1.0) mg/dL Direct Bilirubin (0.0-0.2) mg/dL Indirect Bilirubin (0.0-1.2) mg/dL AST (13-39) Units/L ALT (7-52) Units/L Alkaline Phosphatase (34-104) Units/L Serum Total Protein (6.4-8.9) g/dL Albumin (3.5-5.7) g/dL Globulin (2.4-3.5) g/dL Albumin/Globulin Ratio (1.1-2.2) Amylase (29-103) Units/L Lipase (11-82) Units/L Urine Color (Yellow) Urine Clarity (Clear) Urine pH (5.0-8.0) pH Units Ur Specific [place] (1.010-1.025) Urine Protein (Neg-Trace) mg/dL Urine Glucose (UA) (Normal) mg/dL Urine Ketones (Negative) mg/dL Urine Blood (Negative) Urine Nitrite (Negative) Urine Bilirubin (Negative) Urine Urobilinogen (Normal) mg/dL Ur Leukocyte Esterase (Negative) Urine Microscopic RBC (0-3) per hpf Urine Microscopic WBC (0-3) per hpf Ur Squamous Epith Cells (None-Few) per lpf Urine Bacteria (None-Few) per hpf Hyaline Casts (None-Few) per lpf Ur Culture Indicated? (NO) - Radiology Data Radiology results reviewed: Yes I reviewed the patient's radiology results. Abdomen/Pelvis CT 11/03/17 10:54 IMPRESSION: 1. Focal nonspecific fat stranding within the central mesentery adjacent to the head and uncinate process of the pancreas. Differential considerations include focal pancreatitis or mesenteric panniculitis. Suggest clinical correlation and correlation with amylase and lipase values. There is no evidence of pancreatic mass, fluid collection, or pseudocyst. 2. No evidence of bowel obstruction. 3. Chronic medical renal disease with multiple left renal cysts. 4. Cholelithiasis. 5. Colonic diverticulosis. 6. Urinary bladder diverticulum. 7. 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 Further follow-up of this abnormality is as advised below. 8. Chronic pelvic fractures, as detailed above. 9. Mild dependent airspace consolidation within the bilateral lower lobes, atelectasis favored over aspiration or pneumonia. RECOMMENDATIONS: Managing Abdominal Aortic Aneurysms 3.0-3.4 cm: Every 3 years. Reference: J Vasc Surg. 2008;50(4 Suppl):S2-49 D/ / 11/03/2017 12:10:50 Omar Marrero MD / Zayda Mcadams Interpreting Provider: Omar Marrero MD
[2017-11-03 11:34] LABS: Basophils % 0.1 %; Mean Platelet Volume 10.9 fL (9.4-12.4); Red Cell Distribution Width 16.4 % (11.5-14.5)
[2017-11-03 11:36] LABS: Eosinophils # 0.1 K/mcL (0.0-0.6); Eosinophils % 0.9 %; Hematocrit 31.6 % (37.5-50.1); Immature Granulocytes % 0.4 % (0-4); Immature Platelets 1.6 % (1.1-6.1); Lymphocytes # 1.2 K/mcL (0.6-4.6); Lymphocytes % 8.6 %; Mean Corpuscular HGB Conc 31.6 g/dL (31.6-35.5); Mean Corpuscular Hemoglobin 34.5 pg (28.0-33.3); Monocytes # 1.4 K/mcL (0.0-1.3); Monocytes % 10.7 %; Neutrophils # 10.7 K/mcL (1.6-8.9); Platelet Count 73 K/mcL (140-400); Segmented Neutrophils % 79.3 %
[2017-11-03 11:38] LABS: Platelet Estimate Decreased (Normal)
[2017-11-03 11:45] LABS: Albumin 3.5 g/dL (3.5-5.7); Albumin/Globulin Ratio 1.2 (1.1-2.2); Bilirubin,Direct 0.2 mg/dL (0.0-0.2); Bilirubin,Indirect 0.2 mg/dL (0.0-1.2); Bilirubin,Total 0.4 mg/dL (0.3-1.0); Globulin 2.9 g/dL (2.4-3.5); Potassium 4.1 mEq/L (3.5-5.1); Total Protein 6.4 g/dL (6.4-8.9)
[2017-11-03 12:00] LABS: Bilirubin,Urine Negative (Negative); Blood,Urine Negative (Negative); Clarity,Urine Cloudy (Clear); Color,Urine Yellow (Yellow); Glucose,Urine (UA) Normal (Normal); Ketones,Urine Negative (Negative); Leukocyte Esterase,Urine Large (Negative); Nitrite,Urine Negative (Negative); Protein,Urine 100 mg/dL (Neg-Trace); Urobilinogen,Urine Normal (Normal)
[2017-11-03 12:05] LABS: Bacteria,Urine Moderate per hpf (None-Few); Hyaline Casts,Urine Few per lpf (None-Few); Squamous Epithelial Cell,Urine Few per lpf (None-Few); WBC,Urine TNTC per hpf (0-3)
[2017-11-03] MEDS ORDERED: cefTRIAXone 1,000 MG in Water for inj. (sterile) 20 ML 10 ML IVP ONE (12:59)
[2017-11-03] MEDS: 0.9 % Sodium Chloride 1,000 ML IVC SCH (13:40)
[2017-11-03] MEDS ORDERED: Nitroglycerin 0.4 MG TAB.SUBL SL PRN (13:46)
[2017-11-03] MEDS ORDERED: Sennosides 8.6 MG TABLET PO PRN (13:46)
[2017-11-03] MEDS ORDERED: Melatonin 3 MG TABLET PO PRN (13:46)
[2017-11-03] MEDS ORDERED: *HR* Dextrose 50 % in Water (Syg) 50 ML SYRINGE IVP PRN (13:55)
[2017-11-03] MEDS ORDERED: D5% in Water 1,000 ML IVC PRN (13:55)
[2017-11-03] MEDS ORDERED: Dextrose Gel 15 GM/37.5 ML TUBE PO PRN ×2 (13:55)
[2017-11-03] MEDS ORDERED: Naloxone 0.4 MG/ML INJ IVP PRN (13:55)
[2017-11-03] MEDS ORDERED: Ondansetron 4 MG/2 ML VIAL IVP PRN (14:27)
--- NOTE | 2017-11-03 14:34 | Internal Med History&Physical ---
<Michael Garcia - Last Filed: 11/03/17 14:29> Date of Encounter: 11/03/17 Time of Encounter: 14:29 Internal Medicine - H&P: HPI Chief complaint: n/v, constipation and UTI Admitted From: Home Plans for Post Hospital Care: Home History of present illness: Mr. Castro is a 77 year old male with a PMH of coronary artery disease, CVA, diabetes, hyperlipidemia, hypertension, CKD IV, and seizures. He presents today with a CC constipation, N/V, suprapubic abdominal pain and dysuria x4 days. He reports that he has been constipated for the last 4 days and that an x -ray was completed at the [place] which showed some concern for possible bowel obstruction. However, that imaging was not sent to [facility]. Additionally, he notes that he has had some pain with urination and nausea and vomiting over the last 4 days as well. He reports that he vomits approximately 3-4 times daily and has been unable to hold down any fluids or food. He denies any recent travel, ill contacts, fevers, chills, chest pain, shortness of breath. CT of abdomen and pelvis did not show any bowel obstruction. He is noted to have mild leukocytosis with a WBC of 13.5, chronic anemia and chronic thrombocytopenia. Past Med Surg Social Fam HX - Past Medical History Medical history: coronary artery disease, CVA, diabetes, hyperlipidemia, hypertension, renal disease, seizures Psychiatric history: anxiety, depression, prior suicide attempt - Past Surgical History Surgical History: non-contributory, angioplasty/stent, pacemaker/AICD, pacemaker - Social History Smoking Status: Never smoker Smokeless Tobacco Status: No Alcohol use: none Drug use: none - Family History Mother History Unknown: Yes Internal Medicine - H&P: Meds Carvedilol [Coreg] 25 mg PO BID 08/14/16 [History] Cyanocobalamin (Vitamin B-12) [Vitamin B-12] 1,000 mcg PO MOWEFR 08/14/16 [ History] Finasteride [Proscar] 5 mg PO DAILY 08/14/16 [History] Hydralazine HCl 100 mg PO TID 08/14/16 [History] Isosorbide MONOnitrate [Isosorbide Mononitrate ER] 30 mg PO BID 08/14/16 [ History] Melatonin 6 mg PO HS PRN 08/14/16 [History] Nitroglycerin [Nitrostat] 0.4 mg SL Q5M PRN 08/14/16 [History] Pantoprazole Sodium [Protonix] 40 mg PO DAILY 08/14/16 [History] Tamsulosin [Flomax] 0.8 mg PO HS 08/14/16 [History] Aspirin [Lo-Dose Aspirin EC] 81 mg PO DAILY 01/07/17 [History] Calcium Acetate [Phos-LO] 667 mg PO TIDWM 01/07/17 [History] Furosemide [Lasix] 40 mg PO DAILY 01/07/17 [History] Polyethylene Glycol 3350 [Purelax] 17 gm PO DAILY PRN 01/07/17 [History] Sennosides [Senna] 8.6 mg PO BID PRN 01/07/17 [History] CloNIDine Patch [Catapres-Tts] 0.3 mg TD DAILY 02/08/17 [History] RisperiDONE [Risperdal] 0.5 mg PO BID PRN 02/08/17 [History] Acetaminophen [Tylenol] 650 mg PO Q6HR PRN 05/21/17 [History] Cholecalciferol (D-3) [Vitamin D] 1,000 unit PO DAILY 05/21/17 [History] Docusate Sodium [Dok] 50 mg PO BID PRN 05/21/17 [History] Epoetin Jakub [Procrit] 5,000 unit SQ 4XW 05/21/17 [History] Ferrous Sulfate [Iron] 325 mg PO DAILY 05/21/17 [History] Gemfibrozil [Lopid] 600 mg PO QAM 05/21/17 [History] Ipratropium/Albuterol Neb [Duoneb] 3 ml IH Q4HR 05/21/17 [History] LORazepam [Ativan] 1 mg PO Q6H PRN 05/21/17 [History] Lurasidone [Latuda] 40 mg PO HS 05/21/17 [History] Omeprazole [PriLOSEC] 20 mg PO DAILY 05/21/17 [History] Phenytoin ER [Dilantin ER] 230 mg PO BID 05/21/17 [History] Sertraline [Zoloft] 100 mg PO DAILY 05/21/17 [History] Valproic Acid Oral Soln [Depakene Oral Soln] 750 mg PO BID 05/21/17 [History] Cefuroxime Axetil [Cefuroxime] 500 mg PO DAILY 7 Days #7 tablet 05/22/17 [Rx] Ergocalciferol (VITAMIN D2) [Drisdol (50,000 Unit)] 50,000 unit PO QWEEK #20 capsule 05/22/17 [Rx] Ferrous Gluconate 324 mg PO DAILY #90 tablet 05/22/17 [Rx] Folic Acid 1 mg PO DAILY #90 tablet 05/22/17 [Rx] Insulin ASPART [NovoLOG] See Protocol SQ TID PRN #0 05/22/17 [Rx] OxyCODONE Immed Rel [Roxicodone 5 MG] 5 mg PO Q6HR PRN #30 tablet 05/22/17 [Rx] Thiamine (B-1) [Vitamin B-1] 200 mg PO DAILY #180 tablet 05/22/17 [Rx] Bisacodyl 10 mg RC DAILY PRN 11/03/17 [History] Glucagon, Human Recombinant [GlucaGen] 1 mg IM ONCE PRN 11/03/17 [History] Insulin DETEMIR [Levemir] 15 unit SQ HS 11/03/17 [History] Sodium Bicarbonate 650 mg PO BID 11/03/17 [History] fluPHENAZine HCl [Fluphenazine HCl] mg IVP Q8HR 11/03/17 [History] 3 Allergy/AdvReac Type Severity Reaction Status Date / Time dipyridamole AdvReac See Verified 05/21/17 14:04 Comments niacin AdvReac See Verified 05/21/17 14:04 Comments simvastatin AdvReac See Verified 05/21/17 14:04 Comments All Systems PM: A 10-system review of systems was performed and is negative for pertinent findings except as documented above in the HPI. Review of systems: REVIEW OF SYSTEMS GENERAL: Negative for any fevers, chills, or weight loss. Positive for nausea, vomiting, constipation NEUROLOGIC: Negative for any blurry vision, blind spots, double vision, facial asymmetry, dysphagia, dysarthria, hemiparesis, hemisensory deficits, vertigo, ataxia. HEENT: Negative for any head trauma, neck trauma, neck stiffness, photophobia, phonophobia, sinusitis, rhinitis. CARDIAC: Negative for any chest pain, dyspnea on exertion, paroxysmal nocturnal dyspnea, peripheral edema. PULMONARY: Negative for any shortness of breath, wheezing, COPD, or TB exposure. GASTROINTESTINAL: Negative for any bright red blood per rectum, melena. Positive for upper abdominal pain most prominent above the suprapubic region GENITOURINARY: Positive for dysuria, urinary frequency INTEGUMENTARY: Negative for any rashes, cuts, insect bites. RHEUMATOLOGIC: Negative for any joint pains, photosensitive rashes, history of vasculitis or kidney problems. HEMATOLOGIC: Negative for any abnormal bruising, frequent infections or bleeding. - Constitutional Vitals: Temp Pulse Resp BP Pulse Ox 98.5 F 64 13 125/62 99 11/03/17 10:55 11/03/17 12:48 11/03/17 12:48 11/03/17 12:48 11/03/17 12:48 General appearance: Present: cooperative, A&O X 3, no acute distress, answers questions appropriately Exam: PHYSICAL EXAMINATION: GENERAL: The patient is an ill appearing male in no apparent distress. He is alert and oriented x3. HEENT: Head is normocephalic and atraumatic. Extraocular muscles are intact. Pupils are equal, round, and reactive to light and accommodation. NECK: Supple. No carotid bruits. No lymphadenopathy or thyromegaly. LUNGS: Clear to auscultation. HEART: Regular rate and rhythm without murmur. ABDOMEN: Soft, and nondistended. Positive bowel sounds. No hepatosplenomegaly was noted. Abdomen is soft with mild tenderness noted in the lower left and right quadrant is more prominent in the suprapubic region. EXTREMITIES: Without any cyanosis, clubbing, rash, lesions or edema. NEUROLOGIC: No facial droop or slurred speech noted. Mild speech delay which the patient reports as normal. He is on multiple antipsychotics which could be contributing PSYCHIATRIC: Flat affect, but denies suicidal or homicidal ideations. SKIN: No ulceration rashes or lesions present Internal Med - H&P Results - Labs CBC & Chem 7: 11/03/17 11:10 11/03/17 11:10 Labs: Short CBC 11/03/17 Range/Units 11:10 WBC 13.5 H (4.3-11.1) K/mcL Hgb 10.0 L (12.9-16.9) g/dL Hct 31.6 L (37.5-50.1) % Plt Count 73 L (140-400) K/mcL Neutrophils # 10.7 H (1.6-8.9) K/mcL BMP 11/03/17 11:10 Sodium 143 Potassium 4.1 Chloride 104 Carbon Dioxide 29 BUN 81 H Creatinine 3.38 H Glucose 105 Calcium 10.0 Liver Function 11/03/17 Range/Units 11:10 Total Bilirubin 0.4 (0.3-1.0) mg/dL Direct Bilirubin 0.2 (0.0-0.2) mg/dL AST 18 (13-39) Units/L ALT 8 (7-52) Units/L Alkaline Phosphatase 112 H (34-104) Units/L Albumin 3.5 (3.5-5.7) g/dL Urine 11/03/17 Range/Units 11:36 Urine Color Yellow (Yellow) Urine Clarity Cloudy A (Clear) Urine pH 6.0 (5.0-8.0) pH Units Ur Specific [place] 1.020 (1.010-1.025) Urine Protein 100 H (Neg-Trace) mg/dL Urine Glucose (UA) Normal (Normal) mg/dL - Impressions ITS Impressions Abdomen/Pelvis CT 11/03/17 10:54 IMPRESSION: 1. Focal nonspecific fat stranding within the central mesentery adjacent to the head and uncinate process of the pancreas. Differential considerations include focal pancreatitis or mesenteric panniculitis. Suggest clinical correlation and correlation with amylase and lipase values. There is no evidence of pancreatic mass, fluid collection, or pseudocyst. 2. No evidence of bowel obstruction. 3. Chronic medical renal disease with multiple left renal cysts. 4. Cholelithiasis. 5. Colonic diverticulosis. 6. Urinary bladder diverticulum. 7. 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 Further follow-up of this abnormality is as advised below. 8. Chronic pelvic fractures, as detailed above. 9. Mild dependent airspace consolidation within the bilateral lower lobes, atelectasis favored over aspiration or pneumonia. RECOMMENDATIONS: Managing Abdominal Aortic Aneurysms 3.0-3.4 cm: Every 3 years. Reference: J Vasc Surg. 2009 Apr;50(4 Suppl):S2-49 D/ / 11/03/2017 12:10:50 Omar Marrero MD / Zayda Mcadams Interpreting Provider: Omar Marrero MD - Assessment and plan (1) Urinary tract infection Current Visit: Yes Status: Acute Assessment and plan: 4 day history of dysuria, urinary frequency and lower abdominal pain most prominent over the suprapubic region. Urinalysis reveals large leukocyte esterase and cloudy urine with moderate bacteria. Does not appear septic and does not meet any SIRS criteria. -ATB Ceftriaxone 1gm daily -urine sent for culture; follow cultures and narrow ATB as clinically appropriate -Gentle IVF 0.9% NS at 80ml/hr -CBC D, BMP in the am Qualifiers: Urinary tract infection type: acute cystitis Hematuria presence: without hematuria Qualified Code(s): N30.00 - Acute cystitis without hematuria (2) Nausea & vomiting Current Visit: Yes Status: Acute Assessment and plan: 4 day history of nausea vomiting and constipation. Presents today from [facility]. Patient reports that imaging at the [facility] indicated a concern for partial small bowel obstruction. Today's CT of abdomen and pelvis did not show any bowel obstruction. Does not display any viral symptoms, etiology of nausea and vomiting unclear. Antiemetics IV fluids Qualifiers: Vomiting type: unspecified Vomiting Intractability: unspecified Qualified Code(s): R11.2 - Nausea with vomiting, unspecified (3) Anemia Current Visit: Yes Status: Chronic Assessment and plan: History of chronic anemia secondary to CKD stage IV H&H stable, no active bleeding noted Patient denies any hematemesis, hematochezia or melena CBC D in the morning Qualifiers: Anemia type: due to chronic kidney disease Chronic kidney disease stage: stage 4 (severe) Qualified Code(s): N18.4 - Chronic kidney disease, stage 4 ( severe); D63.1 - Anemia in chronic kidney disease (4) CKD (chronic kidney disease) stage 4, GFR 15-29 ml/min Current Visit: Yes Status: Chronic Assessment and plan: History of CKD stage IV. Follows with the [place]. BUN, creatinine and GFR without changes from patient's normal. Renal function does not appear to have worsened with nausea vomiting and decrease in oral intake. BMP in the morning Receiving IV fluids (5) DVT prophylaxis Current Visit: Yes Status: Acute Assessment and plan: EPCD's (6) Thrombocytopenia Current Visit: Yes Status: Acute Assessment and plan: Chronic history history of ESRD - Time Spent With Patient Total time spent is greater than 50% in coordination of care (as documented) at patient's floor/unit and/or counseling patient: Greater than 35 minutes <Kvng Cruz Brittney - Last Filed: 11/03/17 22:25> Date of Encounter: 11/03/17 Internal Medicine - H&P: HPI History of present illness: Mr. Castro is a 77 year old male All Systems PM: A 10-system review of systems was performed and is negative for pertinent findings except as documented above in the HPI. - Constitutional Vitals: Temp Pulse Resp BP Pulse Ox 97.7 F 60 16 133/52 95 11/03/17 19:34 11/03/17 19:34 11/03/17 19:34 11/03/17 19:34 11/03/17 19:34 Internal Med - H&P Results - Labs CBC & Chem 7: 11/03/17 11:10 11/03/17 11:10 - Attending Attestation I performed a history and physical exam of the patient and discussed his management with [employer]. I reviewed the [employer]'s note and agree with the documented findings and plan of care. Briefly, patient is a 77 y/o WM with PMH of dementia (resident of [place] dementia unit) who presented to ED with 4-day history of abdominal pain, constipation, and dysuria. It is difficult to obtain much history from him. UA concerning for UTI. Imaging not concerning for obstruction. He has mild leukocytosis, and anemia and thrombocytopenia which are chronic issues. He seems to have an indwelling rosales, possibly chronic. Will admit for treatment of UTI with IV antibiotics and IVF. Will obtain information from [place] in AM about why he has chronic rosales and when it was last changed. He has no concerns during my interview, and is resting peacefully in bed. PE: Gen - Awake, alert, NAD HEENT - NCAT, PERRLA, EOMI, hearing grossly intact, oropharynx benign CV - RRR, normal S1 and S2, no M/R/G, no BLE edema Resp - CTAB, no W/R/R, normal WOB Skin - Warm, dry, no rashes/lesions/ulcers Psych - Normal mood and affect, no depression or anxiety Kvng Cruz MD - Assessment and plan (1) DVT prophylaxis Current Visit: Yes Status: Acute (2) CKD (chronic kidney disease) stage 4, GFR 15-29 ml/min Current Visit: Yes Status: Chronic (3) Anemia Current Visit: Yes Status: Chronic Qualifiers: Anemia type: due to chronic kidney disease Chronic kidney disease stage: stage 4 (severe) Qualified Code(s): N18.4 - Chronic kidney disease, stage 4 ( severe); D63.1 - Anemia in chronic kidney disease (4) Urinary tract infection Current Visit: Yes Status: Acute Qualifiers: Urinary tract infection type: acute cystitis Hematuria presence: without hematuria Qualified Code(s): N30.00 - Acute cystitis without hematuria (5) Nausea & vomiting Current Visit: Yes Status: Acute Qualifiers: Vomiting type: unspecified Vomiting Intractability: unspecified Qualified Code(s): R11.2 - Nausea with vomiting, unspecified (6) Thrombocytopenia Current Visit: Yes Status: Acute - Time Spent With Patient Total time spent is greater than 50% in coordination of care (as documented) at patient's floor/unit and/or counseling patient:
[2017-11-03] MEDS: Ipratropium/Albuterol Neb 3 ML IH SCH ×2 (15:27→19:52)
[2017-11-03] MEDS: Insulin LISPRO 300 UNITS/3 ML VIAL SQ SCH ×2 (16:01→20:45)
[2017-11-03] MEDS: Acetaminophen 325 MG TABLET PO SCH ×2 (18:35→23:52)
[2017-11-03] MEDS: Insulin DETEMIR 100 UNIT/ML X5UNITS SQ SCH (20:45)
[2017-11-03] MEDS ORDERED: *HR* LORazepam 1 MG TABLET PO PRN (23:35)
[2017-11-03] MEDS: Valproic Acid Oral Soln 250 MG/5 ML UDC PO SCH (23:51)
[2017-11-03] MEDS: hydrALAZINE 25 MG TABLET PO SCH (23:52)
[2017-11-04] MEDS: Ipratropium/Albuterol Neb 3 ML IH SCH ×6 (00:03→20:07)
[2017-11-04] MEDS: Phenytoin Oral Susp 100 MG/4 ML UDC PO SCH ×3 (00:06→21:54)
[2017-11-04] MEDS: 0.9 % Sodium Chloride 1,000 ML IVC SCH ×2 (00:28→14:18)
[2017-11-04] MEDS: Acetaminophen 325 MG TABLET PO SCH ×3 (04:59→19:17)
[2017-11-04] MEDS ORDERED: Milk and Molasses Enema 200 ML RC ONE (06:36)
[2017-11-04 06:42] LABS: Immature Granulocytes % 0.6 % (0-4); Red Blood Count 2.38 M/mcL (4.19-5.50); Red Cell Distribution Width 16.4 % (11.5-14.5)
[2017-11-04 06:44] LABS: Basophils % 0.3 %; Eosinophils # 0.1 K/mcL (0.0-0.6); Hematocrit 26.8 % (37.5-50.1); Hemoglobin 8.2 g/dL (12.9-16.9); Immature Platelets 1.8 % (1.1-6.1); Lymphocytes # 0.9 K/mcL (0.6-4.6); Lymphocytes % 9.7 %; Mean Corpuscular HGB Conc 30.6 g/dL (31.6-35.5); Mean Corpuscular Hemoglobin 34.5 pg (28.0-33.3); Mean Corpuscular Volume 112.6 fL (83.0-100.0); Mean Platelet Volume 11.1 fL (9.4-12.4); Monocytes # 0.8 K/mcL (0.0-1.3); Monocytes % 8.2 %; Neutrophils # 7.8 K/mcL (1.6-8.9); Nucleated Red Blood Cells 0.5 /100 WBC (0); Segmented Neutrophils % 80.2 %
[2017-11-04 06:48] LABS: Platelet Count 50 K/mcL (140-400)
[2017-11-04 07:25] LABS: Calcium 7.8 mg/dL (8.6-10.3); Potassium 3.8 mEq/L (3.5-5.1)
[2017-11-04 07:27] LABS: Anisocytosis 1+ (Not Present)
[2017-11-04 07:28] LABS: Macrocytosis Present (Not Present); Platelet Estimate Decreased (Normal)
--- NOTE | 2017-11-04 08:40 | Internal Med Progress Note ---
Date of Encounter: 11/04/17 Time of Encounter: 08:38 - Assessment and plan (1) Urinary tract infection Current Visit: Yes Status: Acute Assessment and plan: Continue with ceftriaxone for now. Follow up on cultures. WBC count improving. Qualifiers: Urinary tract infection type: acute cystitis Hematuria presence: without hematuria Qualified Code(s): N30.00 - Acute cystitis without hematuria (2) Constipation Current Visit: Yes Status: Acute Assessment and plan: Patient had no BM x4 days. Was able to have a large BM this morning after Milk and Molasses Enema. Qualifiers: Constipation type: unspecified constipation type Qualified Code(s): K59.00 - Constipation, unspecified (3) Nausea & vomiting Current Visit: Yes Status: Acute Assessment and plan: Continue symptomatic treatment. Likely secondary to the UTI and constipation. This should improve now after the BM he just had. Qualifiers: Vomiting type: unspecified Vomiting Intractability: unspecified Qualified Code(s): R11.2 - Nausea with vomiting, unspecified (4) CKD (chronic kidney disease) stage 4, GFR 15-29 ml/min Current Visit: Yes Status: Chronic Assessment and plan: Chronic. We will continue to monitor. (5) Anemia Current Visit: Yes Status: Chronic Assessment and plan: History of chronic anemia secondary to CKD stage IV. Seems to be around baseline. We will continue to monitor. Somewhat of a drop in hemoglobin this morning compared to admission but that is likely dilutional. Qualifiers: Anemia type: due to chronic kidney disease Chronic kidney disease stage: stage 4 (severe) Qualified Code(s): N18.4 - Chronic kidney disease, stage 4 ( severe); D63.1 - Anemia in chronic kidney disease (6) Thrombocytopenia Current Visit: Yes Status: Acute Assessment and plan: Chronic. We will monitor. (7) DVT prophylaxis Current Visit: Yes Status: Acute Assessment and plan: EPCD's - Time Spent With Patient Total time spent is greater than 50% in coordination of care (as documented) at patient's floor/unit and/or counseling patient: - Subjective Interval history: Patient was seen and examined. Afebrile. Says he started to feel better. Has complaints of dysuria. Had a large bowel movement and abdominal discomfort is relieved now. No BM last 4 days. Admitted last night with findings of a urinary tract infection. There was a concern for a possible small bowel obstruction however a CT abdomen and pelvis without out. - Constitutional Vitals: Temp Pulse Resp BP Pulse Ox 98.4 F 65 16 155/65 96 11/03/17 23:21 11/03/17 23:21 11/03/17 23:21 11/03/17 23:21 11/03/17 23:21 General appearance: Present: cooperative, A&O X 3, no acute distress, answers questions appropriately Exam: GEN: NAD CVS: RRR. S1, S2, No m/r/g RESP: CTAB ABD: Soft, NT, ND, +BS EXT: No edema. 2+ DP. No rashes NEURO: Nonfocal Internal Medicine: Result - Labs CBC & Chem 7: 11/04/17 06:17 11/04/17 06:17 Labs: Short CBC 11/04/17 Range/Units 06:17 WBC 9.7 (4.3-11.1) K/mcL Hgb 8.2 L D (12.9-16.9) g/dL Hct 26.8 L (37.5-50.1) % Plt Count 50 L (140-400) K/mcL Neutrophils # 7.8 (1.6-8.9) K/mcL BMP 11/04/17 06:17 Sodium 141 Potassium 3.8 Chloride 108 H Carbon Dioxide 19 L BUN 79 H Creatinine 2.91 H Glucose 91 Calcium 7.8 L Consult Discharge Plan - Plan [facility]Primary Care Provider[facility] -
[2017-11-04] MEDS ORDERED: CloNIDine Patch 0.3 MG PATCH (WEEKLY) TD SCH ×2 (09:00→10:00)
[2017-11-04] MEDS: Calcium Acetate 667 MG CAPSULE PO SCH ×3 (09:52→19:17)
[2017-11-04] MEDS: Furosemide 20 MG TABLET PO SCH (09:52)
[2017-11-04] MEDS: hydrALAZINE 25 MG TABLET PO SCH ×3 (09:52→21:55)
[2017-11-04] MEDS: Thiamine (B-1) 100 MG TABLET PO SCH (09:52)
[2017-11-04] MEDS: Cholecalciferol (D-3) 1,000 UNIT TABLET PO SCH (09:52)
[2017-11-04] MEDS: Isosorbide MONOnitrate (24 HR) 30 MG TAB.ER.24H PO SCH ×2 (09:53→21:55)
[2017-11-04] MEDS: Aspirin Enteric Coated 81 MG Tablet PO SCH (09:53)
[2017-11-04] MEDS: Finasteride 5 MG TABLET PO SCH (09:53)
[2017-11-04] MEDS: Valproic Acid Oral Soln 250 MG/5 ML UDC PO SCH ×2 (09:59→21:54)
[2017-11-04] MEDS: Insulin LISPRO 300 UNITS/3 ML VIAL SQ SCH ×4 (10:00→21:55)
[2017-11-04] MEDS: cefTRIAXone 1,000 MG in Water for inj. (sterile) 20 ML 10 ML IVP SCH (10:01)
[2017-11-04] MEDS ORDERED: Cyanocobalamin (B-12) 1,000 MCG TABLET PO SCH (13:46)
[2017-11-04] MEDS: Insulin DETEMIR 100 UNIT/ML X5UNITS SQ SCH (21:55)
[2017-11-05] MEDS: Acetaminophen 325 MG TABLET PO SCH ×3 (00:04→11:50)
[2017-11-05] MEDS: Ipratropium/Albuterol Neb 3 ML IH SCH ×4 (03:49→11:26)
[2017-11-05 04:04] LABS: Red Cell Distribution Width 15.9 % (11.5-14.5)
[2017-11-05 04:06] LABS: Basophils % 0.1 %; Eosinophils # 0.3 K/mcL (0.0-0.6); Eosinophils % 3.2 %; Hematocrit 25.6 % (37.5-50.1); Hemoglobin 7.9 g/dL (12.9-16.9); Immature Granulocytes % 0.6 % (0-4); Immature Platelets 1.6 % (1.1-6.1); Lymphocytes % 10.7 %; Mean Corpuscular HGB Conc 30.9 g/dL (31.6-35.5); Mean Corpuscular Hemoglobin 33.6 pg (28.0-33.3); Mean Corpuscular Volume 108.9 fL (83.0-100.0); Mean Platelet Volume 11.4 fL (9.4-12.4); Monocytes # 0.7 K/mcL (0.0-1.3); Monocytes % 8.9 %; Red Blood Count 2.35 M/mcL (4.19-5.50); Segmented Neutrophils % 76.5 %
[2017-11-05 04:21] LABS: Lymphocytes # 0.9 K/mcL (0.6-4.6); Platelet Count 73 K/mcL (140-400)
[2017-11-05 04:32] LABS: Magnesium 2.6 mg/dL (1.6-2.6); Potassium 4.1 mEq/L (3.5-5.1)
[2017-11-05] MEDS: Insulin LISPRO 300 UNITS/3 ML VIAL SQ SCH ×2 (07:30→11:51)
[2017-11-05] MEDS: Cholecalciferol (D-3) 1,000 UNIT TABLET PO SCH (08:27)
[2017-11-05] MEDS: Isosorbide MONOnitrate (24 HR) 30 MG TAB.ER.24H PO SCH (08:27)
[2017-11-05] MEDS: Aspirin Enteric Coated 81 MG Tablet PO SCH (08:28)
[2017-11-05] MEDS: Finasteride 5 MG TABLET PO SCH (08:28)
[2017-11-05] MEDS: Calcium Acetate 667 MG CAPSULE PO SCH ×2 (08:28→11:51)
[2017-11-05] MEDS: Phenytoin Oral Susp 100 MG/4 ML UDC PO SCH (08:28)
[2017-11-05] MEDS: Furosemide 20 MG TABLET PO SCH (08:28)
[2017-11-05] MEDS: Thiamine (B-1) 100 MG TABLET PO SCH (08:28)
[2017-11-05] MEDS: hydrALAZINE 25 MG TABLET PO SCH (08:28)
[2017-11-05] MEDS: cefTRIAXone 1,000 MG in Water for inj. (sterile) 20 ML 10 ML IVP SCH (08:29)
[2017-11-05] MEDS: Valproic Acid Oral Soln 250 MG/5 ML UDC PO SCH (08:29)
[2017-11-05 11:07] VITALS: BP 155/66
--- NOTE | 2017-11-05 11:13 | Discharge Summary ---
Orders not resulted at time of discharge: Pending orders 11/04/17 10:31 Phenytoin (Dilantin) Free Stat Phenytoin Free and Total Stat Date of Encounter: 11/05/17 Time of Encounter: 11:12 - Discharge Diagnosis (1) Urinary tract infection Priority: Primary Status: Acute Qualifiers: Urinary tract infection type: acute cystitis Hematuria presence: without hematuria Qualified Code(s): N30.00 - Acute cystitis without hematuria (2) Constipation Priority: Primary Status: Acute Qualifiers: Constipation type: unspecified constipation type Qualified Code(s): K59.00 - Constipation, unspecified (3) Nausea & vomiting Priority: Primary Status: Acute Qualifiers: Vomiting type: unspecified Vomiting Intractability: unspecified Qualified Code(s): R11.2 - Nausea with vomiting, unspecified (4) CKD (chronic kidney disease) stage 4, GFR 15-29 ml/min Priority: Secondary Status: Chronic (5) Anemia Priority: Secondary Status: Chronic Qualifiers: Anemia type: due to chronic kidney disease Chronic kidney disease stage: stage 4 (severe) Qualified Code(s): N18.4 - Chronic kidney disease, stage 4 ( severe); D63.1 - Anemia in chronic kidney disease (6) Thrombocytopenia Priority: Secondary Status: Acute Hospital course: Mr. Castro is a 77 year old male with a PMH of coronary artery disease, CVA, diabetes, hyperlipidemia, hypertension, CKD IV, and seizures. He presented with a CC constipation, N/V, suprapubic abdominal pain and dysuria x4 days. He has been constipated for the last 4 days and that an x-ray was completed at the [place] which showed some concern for possible bowel obstruction. However, that imaging was not sent to [facility]. Additionally, he notes that he has had some pain with urination and nausea and vomiting over the last 4 days as well. Here in the ED he was noted to have leukocytois with UTI. Started on ceftriaxone IV and admitted.. CT of abdomen and pelvis did not show any bowel obstruction. He had a bowel movement with an enema. His uinre cultures came back + for Citrobacter freundii and was discharged to finish a course of Macrobid on 11/05. - Time Spent with Patient Total time spent providing and/or coordinating discharge services: Greater than 30 minutes - Discharge Medications Prescriptions: Nitrofurantoin (BID) [Macrobid] 100 mg PO BID #10 capsule Home Medications: Carvedilol [Coreg] 25 mg PO BID 08/14/16 [History] Cyanocobalamin (Vitamin B-12) [Vitamin B-12] 1,000 mcg PO MOWEFR 08/14/16 [ History] Finasteride [Proscar] 5 mg PO DAILY 08/14/16 [History] Hydralazine HCl 100 mg PO TID 08/14/16 [History] Isosorbide MONOnitrate [Isosorbide Mononitrate ER] 30 mg PO BID 08/14/16 [ History] Melatonin 6 mg PO HS PRN 08/14/16 [History] Nitroglycerin [Nitrostat] 0.4 mg SL Q5M PRN 08/14/16 [History] Tamsulosin [Flomax] 0.8 mg PO HS 08/14/16 [History] Aspirin [Lo-Dose Aspirin EC] 81 mg PO DAILY 01/07/17 [History] Calcium Acetate [Phos-LO] 667 mg PO TIDWM 01/07/17 [History] Furosemide [Lasix] 40 mg PO DAILY 01/07/17 [History] Polyethylene Glycol 3350 [Purelax] 17 gm PO DAILY PRN 01/07/17 [History] CloNIDine Patch [Catapres-Tts] 0.3 mg TD TH 02/08/17 [History] Acetaminophen [Tylenol] 650 mg PO Q6HR PRN MDD 3000 05/21/17 [History] Cholecalciferol (D-3) [Vitamin D] 1,000 unit PO DAILY 05/21/17 [History] Epoetin Jakub [Procrit] 5,000 unit SQ TUWE05/21/17 [History] Ferrous Sulfate [Iron] 325 mg PO DAILY 05/21/17 [History] Gemfibrozil [Lopid] 600 mg PO QAM 05/21/17 [History] LORazepam [Ativan] 1 mg PO Q6H PRN 05/21/17 [History] Lurasidone [Latuda] 40 mg PO HS 05/21/17 [History] Omeprazole [PriLOSEC] 20 mg PO DAILY 05/21/17 [History] Sertraline [Zoloft] 100 mg PO DAILY 05/21/17 [History] Bisacodyl [Dulcolax] 10 mg RC DAILY PRN 11/03/17 [History] Glucagon, Human Recombinant [Glucagen] 1 mg IM ONCE PRN 11/03/17 [History] Insulin DETEMIR [Levemir] 15 unit SQ HS 11/03/17 [History] Sodium Bicarbonate 650 mg PO BID 11/03/17 [History] Dextrose [Glucose] 32 gm PO AD PRN 11/05/17 [History] Fluphenazine 5 mg IM Q8H PRN 11/05/17 [History] Insulin ASPART [NovoLOG] 0 unit SQ TIDWM 11/05/17 [History] Insulin ASPART [NovoLOG] 6 unit SQ TIDWM 11/05/17 [History] Mag Hydrox/Al Hydrox/Simeth [Almacone Chewable Tablet] 2 tab PO TID PRN [History] Nitrofurantoin (BID) [Macrobid] 100 mg PO BID #10 capsule 11/05/17 [Rx] Phenytoin Sodium Extended [Dilantin] 30 mg PO BID 11/05/17 [History] Phenytoin Sodium Extended [Phenytek] 200 mg PO BID 11/05/17 [History] Sennosides/Docusate Sodium [Colace 2-in-1 Tablet] 2 tab PO BID PRN 11/05/17 [ History] Sodium Chloride for inhalation [Sodium Chloride, Saline 15 Ml 15 Ml] 2 spr IH TID PRN 11/05/17 [History] Terbinafine HCl [Terbinafine] 1 appl TP DAILY 11/05/17 [History] Valproic Acid 750 mg PO BID PRN 11/05/17 [History] Allergies/Adverse Reactions: 3 Allergy/AdvReac Type Severity Reaction Status Date / Time dipyridamole AdvReac See Verified 05/21/17 14:04 Comments niacin AdvReac See Verified 05/21/17 14:04 Comments simvastatin AdvReac See Verified 05/21/17 14:04 Comments Date of admission: 11/03/17 14:18 Primary care physician: PCP [place] Consults: 11/04/17 11:03 Consult to Fit Model [CONS] Routine Reason for Consult: RETURN TO [place] [facility] - Constitutional Vitals: Temp Pulse Resp BP Pulse Ox 98.5 F 61 16 155/66 96 11/05/17 11:02 11/05/17 11:02 11/05/17 11:02 11/05/17 11:02 11/05/17 11:02 General appearance: Present: cooperative, A&O X 3, no acute distress, answers questions appropriately Exam: GEN: NAD CVS: RRR. S1, S2, No m/r/g RESP: CTAB ABD: Soft, NT, ND, +BS EXT: No edema. 2+ DP. No rashes NEURO: Nonfocal - Patient Status Disposition: Transfer SNF Condition: Fair Overall status at discharge: patient is progressing back to baseline - Discharge Instructions [facility] - ([place] [facility]) Forms: ED Satisfaction Letter, Work/School Release - Diet and Activity Activity: increase activity as tolerated Diet: diabetic diet, low salt diet - VTE Documentation of Mechanical Device: Intermittent pneumatic compression device
--- NOTE | 2017-11-05 11:14 | Physician Discharge Referral ---
ExtendedCare Referral Info Institutional Level of Care: Skilled - Diagnosis (1) Urinary tract infection Priority: Primary Status: Acute (2) Constipation Priority: Primary Status: Acute (3) Nausea & vomiting Priority: Primary Status: Acute (4) CKD (chronic kidney disease) stage 4, GFR 15-29 ml/min Priority: Secondary Status: Chronic (5) Anemia Priority: Secondary Status: Chronic (6) Thrombocytopenia Priority: Secondary Status: Acute - Transfer Medications Prescriptions: Nitrofurantoin (BID) [Macrobid] 100 mg PO BID #10 capsule Home Medications: Carvedilol [Coreg] 25 mg PO BID 08/14/16 [History] Cyanocobalamin (Vitamin B-12) [Vitamin B-12] 1,000 mcg PO MOWEFR 08/14/16 [ History] Finasteride [Proscar] 5 mg PO DAILY 08/14/16 [History] Hydralazine HCl 100 mg PO TID 08/14/16 [History] Isosorbide MONOnitrate [Isosorbide Mononitrate ER] 30 mg PO BID 08/14/16 [ History] Melatonin 6 mg PO HS PRN 08/14/16 [History] Nitroglycerin [Nitrostat] 0.4 mg SL Q5M PRN 08/14/16 [History] Tamsulosin [Flomax] 0.8 mg PO HS 08/14/16 [History] Aspirin [Lo-Dose Aspirin EC] 81 mg PO DAILY 01/07/17 [History] Calcium Acetate [Phos-LO] 667 mg PO TIDWM 01/07/17 [History] Furosemide [Lasix] 40 mg PO DAILY 01/07/17 [History] Polyethylene Glycol 3350 [Purelax] 17 gm PO DAILY PRN 01/07/17 [History] CloNIDine Patch [Catapres-Tts] 0.3 mg TD TH 02/08/17 [History] Acetaminophen [Tylenol] 650 mg PO Q6HR PRN MDD 3000 05/21/17 [History] Cholecalciferol (D-3) [Vitamin D] 1,000 unit PO DAILY 05/21/17 [History] Epoetin Jakub [Procrit] 5,000 unit SQ TUWETHFR 05/21/17 [History] Ferrous Sulfate [Iron] 325 mg PO DAILY 05/21/17 [History] Gemfibrozil [Lopid] 600 mg PO QAM 05/21/17 [History] LORazepam [Ativan] 1 mg PO Q6H PRN 05/21/17 [History] Lurasidone [Latuda] 40 mg PO HS 05/21/17 [History] Omeprazole [PriLOSEC] 20 mg PO DAILY 05/21/17 [History] Sertraline [Zoloft] 100 mg PO DAILY 05/21/17 [History] Bisacodyl [Dulcolax] 10 mg RC DAILY PRN 11/03/17 [History] Glucagon, Human Recombinant [Glucagen] 1 mg IM ONCE PRN 11/03/17 [History] Insulin DETEMIR [Levemir] 15 unit SQ HS 11/03/17 [History] Sodium Bicarbonate 650 mg PO BID 11/03/17 [History] Dextrose [Glucose] 32 gm PO AD PRN 11/05/17 [History] Fluphenazine 5 mg IM Q8H PRN 11/05/17 [History] Insulin ASPART [NovoLOG] 0 unit SQ TIDWM 11/05/17 [History] Insulin ASPART [NovoLOG] 6 unit SQ TIDWM 11/05/17 [History] Mag Hydrox/Al Hydrox/Simeth [Almacone Chewable Tablet] 2 tab PO TID PRN [History] Nitrofurantoin (BID) [Macrobid] 100 mg PO BID #10 capsule 11/05/17 [Rx] Phenytoin Sodium Extended [Dilantin] 30 mg PO BID 11/05/17 [History] Phenytoin Sodium Extended [Phenytek] 200 mg PO BID 11/05/17 [History] Sennosides/Docusate Sodium [Colace 2-in-1 Tablet] 2 tab PO BID PRN 11/05/17 [ History] Sodium Chloride for inhalation [Sodium Chloride, Saline 15 Ml 15 Ml] 2 spr IH TID PRN 11/05/17 [History] Terbinafine HCl [Terbinafine] 1 appl TP DAILY 11/05/17 [History] Valproic Acid 750 mg PO BID PRN 11/05/17 [History] Allergies/Adverse Reactions: 3 Allergy/AdvReac Type Severity Reaction Status Date / Time dipyridamole AdvReac See Verified 05/21/17 14:04 Comments niacin AdvReac See Verified 05/21/17 14:04 Comments simvastatin AdvReac See Verified 05/21/17 14:04 Comments - Respiratory Orders Smoking Cessation: Smoking cessation has been advised. For more information, call the [place] Tobacco Quit Line at 0-477-NXFX-NOW. - Diet Orders Cardiac (cardiac/diabetic diet) CERTIFICATION: I certify that the transfer of the above named patient to an Extended Care Facility is necessary for the continuing treatment of the diagnosis listed. The above information is true and accurate reflection of patient's current condition. Confidential - Redisclosure prohibited without a patient's written consent.
[2017-11-06 19:07] LABS: Phenytoin (Dilantin) Free 0.7 ug/mL (1.0-2.5); Phenytoin Dose NOT PROVIDED; Phenytoin Dose Frequency NOT PROVIDED; Phenytoin Route NOT PROVIDED
[2017-11-07 07:43] LABS: Phenytoin (Dilantin) Free 0.7 ug/mL (1.0-2.5); Phenytoin Percent Free 23.3 % (8.0-14.0); Phenytoin Type of Draw NOT PROVIDED
== END 2017-11-05 13:44 ==
LOC: EMEROO 10:49 → 2ANU 10:49
PROVIDERS: ADMIT Nurse Practitioner; ATTEND Internal Medicine